=== PATIENT | female | born 1985 | race Caucasian/White ===

== ENCOUNTER 2017-06-12 18:07 | Emergency (ER) | payer OTHER ==
[~2017-06-12] VITALS: Ht 165.1 cm; Wt 96.7 kg
[~2017-06-12 18:07] MED LIST: ALBUAER2 INH; FLV1 PO; FRRS300 PO; GABA1CAP5 PO; IPRASOL4 INH; LAVEOIL; METH10CO PO; METO5TAB3 PO; MIRT30TA2 PO; MISCLIQ; MOME100A INH; MRLP17 PO; NCDT21 TD; ONDA8TAB62 SL; PEPPOIL; PRT40 PO; SALI0.6517; SUMA50TA15 PO; ZOLP10TA PO; [UNRECOGNIZED DRUG - OTHER]; [UNRECOGNIZED DRUG - OTHER]
[2017-06-12 18:21] VITALS: TEMP 36.8; Ht 165.1 cm; Wt 96.7 kg
--- NOTE | 2017-06-12 18:58 | EMERGENCY ROOM VISIT NOTE ---
History First contact with patient: 18:23 Chief Complaint: WRIST PAIN Stated Complaint: FELL - PAIN IN R WRIST History of Present Illness The patient is a 32 year old female who presents to the Emergency Room with complaints of right arm pain after a fall. The patient reports that she tripped and fell down steps approximately one hour ago. She injured her right arm. She denies any other injuries. She did not hit her head. She states there is pain in the right elbow and wrist. Denies any shoulder or hand pain. She denies any numbness or weakness. He took ibuprofen without relief. She denies any previous injuries to this arm. Review of Systems A 6 point review of systems was reviewed with the patient with pertinent positives and negatives as per history of present illness. All else were negative. Past Medical/Surgical History Medical Problems: (1) Altered mental status (2) Benzodiazepine overdose (3) Bipolar disorder (4) Bronchitis (5) Chronic alcoholism in remission (6) Chronic back pain (7) Chronic hepatitis C (8) Depression (9) Diab Kelsey Wo Compl, Type Ii Or Unspec Type, Not Uncntrld (10) Drug overdose (11) History of IV drug abuse (12) Hypertension Nos (13) Pneumonia Surgical Problems: (1) History of section (2) History of hernia repair (3) History of tubal ligation Social History Problems: (1) Hepatitis C Family History FHx: cancer FHx: diabetes FHx: gallbladder disease FHx: heart disease FHx: hypertension FHx: kidney disease/stones FHx: lung disease FHx: seizures Social History Smoking Status: Current Every Day Smoker Alcohol Use: none Marital Status: single Housing Status: lives alone Occupation Status: employed Current/Historical Medications Scheduled Ferrous Sulfate (Ferrous Sulfate), 325 MG PO BID Folic Acid (Folvite), 1 MG PO DAILY Gabapentin (Neurontin), 600 MG PO TID Methadone Hcl (Methadone Hcl), 120 MG PO DAILY Milk Thistle (Silybum Marian[place] (Milk Thistle), 175 MG PO DAILY Mirtazapine (Mirtazapine), 45 MG PO HS Mometasone Furoate-Formoterol (Dulera 100/5 Mcg), 2 PUFFS INH BID Pantoprazole (Protonix), 40 MG PO BID Scheduled PRN Acetaminophen (Tylenol), 1,000 MG PO Q8 PRN for Pain Albuterol (Ventolin Hfa), 2 PUFFS INH Q4H PRN for SOB/Wheezing Ibuprofen (Motrin), 800 MG PO TID PRN for Pain Ipratropium-Albuterol (Duoneb), 1 TREATMENT INH QID PRN for SOB/Wheezing Metoclopramide Hcl (Metoclopramide Hcl), 5 MG PO Q8 PRN for Nausea or Vomiting Ondansetron Odt (Zofran Odt), 8 MG SL BID PRN for Nausea Polyethylene Glycol 3350 (Bulk (Polyethylene Glycol 3350), 17 GM PO BID PRN for Constipation Quetiapine Fumarate (Seroquel), 50 MG PO BID PRN for UNDECIDED Saline ([place] Nasal [place]), 2 SPRAYS REINALDO UD PRN for Nasal Congestion Zolpidem Tartrate (Ambien), 10 MG PO HS PRN for Sleep Physical Exam Vital Signs Date Time Temp Pulse Resp B/P (MAP) Pulse Ox O2 Delivery O2 Flow Rate FiO2 06/12/17 20:30 70 16 115/72 99 06/12/17 20:09 78 18 119/75 97 Room Air 06/12/17 18:21 36.8 80 16 116/75 95 Room Air Physical Exam VITALS: Vitals are noted on the nurse's note and reviewed by myself. Vital signs stable. GENERAL: This is a 32-year-old female, in no acute distress, nondiaphoretic, well-developed well-nourished. MUSCULOSKELETAL: There is swelling over the dorsum of the right wrist. There is tenderness to palpation of the right wrist bilaterally and of the right elbow. No tenderness of the proximal forearm, hand, humerus or shoulder. Full range of motion of the right upper extremity. NEURO: Patient was alert and oriented to person place and time. Medical Decision & Procedures ER Provider Diagnostic Interpretation: RIGHT ELBOW 3 VIEWS FINDINGS: There is no fracture or dislocation. Soft tissues are unremarkable. No radiopaque foreign bodies. No elbow effusion. IMPRESSION: No fracture or dislocation within the right elbow. RIGHT WRIST 4 VIEWS FINDINGS: There is no fracture or dislocation. Mild soft tissue swelling. The scaphoid appears intact. No radiopaque foreign bodies. IMPRESSION: No fractures. Medical Decision Differential diagnosis includes elbow fracture, wrist fracture, contusion, sprain, among others. The patient was evaluated as above. X-rays of the right elbow and right wrist were performed and read by radiology with no acute findings. Patient was placed in an arm sling to help with her discomfort. Conservative measures were discussed. She will follow-up with primary care or orthopedics as needed. She verbalized understanding of my assessment and treatment plan and was discharged home in good condition. Medication Reconcilliation Current Medication List: was personally reviewed by me Blood Pressure Screening Patient's blood pressure: Normal blood pressure Impression Primary Impression: Wrist pain, right Departure Information Referrals Breann Dee (PCP) Patient Instructions [facility]
[2017-06-12] MEDS ORDERED: MILK175C3 PO (19:00)
[2017-06-12] MEDS ORDERED: PRVHFAIN INH (19:00)
[2017-06-12] MEDS ORDERED: METH10CO11 PO (19:00)
[2017-06-12] MEDS ORDERED: ACET-1256 PO (19:00)
[2017-06-12] MEDS ORDERED: FOLI1TAB8 PO (19:00)
[2017-06-12] MEDS ORDERED: SALI0.6510 NAE (19:00)
[2017-06-12] MEDS ORDERED: FERR325T5 PO (19:00)
[2017-06-12] MEDS ORDERED: METO5TAB2 PO (19:00)
[2017-06-12] MEDS ORDERED: IBUP-1428 PO (19:00)
[2017-06-12] MEDS ORDERED: GABA600T PO (19:00)
[2017-06-12] MEDS ORDERED: ONDA8TAB13 SL (19:00)
[2017-06-12] MEDS ORDERED: POLY1POW2 PO (19:00)
[2017-06-12] MEDS ORDERED: QUET1TAB32 PO (19:00)
[2017-06-12] MEDS ORDERED: PANT40TA PO (19:00)
[2017-06-12] MEDS ORDERED: MIRT45TA3 PO (19:00)
--- NOTE | 2017-06-12 19:13 | DIAGNOSTIC IMAGING REPORT ---
RIGHT ELBOW 3 VIEWS HISTORY: Right elbow pain. fall, right arm pain COMPARISON: None. FINDINGS: There is no fracture or dislocation. Soft tissues are unremarkable. No radiopaque foreign bodies. No elbow effusion. IMPRESSION: No fracture or dislocation within the right elbow. Electronically signed by: Duc Ballard M.D. 06/12/2017 7:12 PM Dictated Date/Time: 06/12/2017 7:11 PM
--- NOTE | 2017-06-12 19:16 | DIAGNOSTIC IMAGING REPORT ---
RIGHT WRIST 4 VIEWS HISTORY: Right wrist pain. fall, right arm pain COMPARISON: None. FINDINGS: There is no fracture or dislocation. Mild soft tissue swelling. The scaphoid appears intact. No radiopaque foreign bodies. IMPRESSION: No fractures. Electronically signed by: Duc Ballard M.D. 06/12/2017 7:14 PM Dictated Date/Time: 06/12/2017 7:13 PM
[2017-06-12 20:30] VITALS: BP 115/72; PULSE 70; O2SAT 99
== END 2017-06-12 20:30 | disposition home or self-care (01) ==
LOC: C.EDB 18:08 → C.EDD 20:30
DX: M25.531 Pain in right wrist (principal); I10 Essential (primary) hypertension; E11.9 Type 2 diabetes mellitus without complications; B19.20 Unspecified viral hepatitis C without hepatic coma; F31.9 Bipolar disorder, unspecified; F32.9 Major depressive disorder, single episode, unspecified; F17.200 Nicotine dependence, unspecified, uncomplicated; Z98.51 Tubal ligation status; Z79.899 Other long term (current) drug therapy; Z80.9 Family history of malignant neoplasm, unspecified; Z83.3 Family history of diabetes mellitus; Z83.79 Family history of other diseases of the digestive system; Z82.49 Family history of ischemic heart disease and other diseases of the circulatory system; Z84.1 Family history of disorders of kidney and ureter; Z82.0 Family history of epilepsy and other diseases of the nervous system

== ENCOUNTER 2017-12-31 18:17 | Observation (INO) | payer OTHER ==
[~2017-12-31] VITALS: Ht 165.1 cm; Wt 78.1 kg
[~2017-12-31 18:17] MED LIST changes: +ABL10 PO; -ALBUAER2 INH; +ATR25 PO; +FERR325T5 PO; -FLV1 PO; +FOLI1TAB8 PO; -FRRS300 PO; -GABA1CAP5 PO; +GABA600T PO; +IPRA-64 INH; -IPRASOL4 INH; -LAVEOIL; -METH10CO PO; -METO5TAB3 PO; +MILK175C3 PO; -MIRT30TA2 PO; +MIRT45TA3 PO; -MISCLIQ; -MOME100A INH; -MRLP17 PO; -NCDT21 TD; +ONDA8TAB13 SL; -ONDA8TAB62 SL; +PANT40TA PO; -PEPPOIL; -PRT40 PO; -SALI0.6517; +SRQ200 PO; -SUMA50TA15 PO; -ZOLP10TA PO; -[UNRECOGNIZED DRUG - OTHER]; -[UNRECOGNIZED DRUG - OTHER]
[2017-12-31] MEDS ORDERED: SODIUM CHLORIDE 0.9% 1000ML 1,000 ML IV STA (18:25)
--- NOTE | 2017-12-31 18:41 | EMERGENCY ROOM VISIT NOTE ---
History Report prepared by eBe: Juana Mina Under the Supervision of: Dr. Stanley Wilkerson D.O. First contact with patient: 18:18 Stated Complaint: OVERDOSE, MENTAL HEALTH History of Present Illness The patient is a 32 year old female who presents to the Emergency Room with complaints of an episode of Prazosin overdose about 1.5 hours ago. She notes she took about a handful of Prazosin 1mg pills, about 15-20, before deciding it was a bad decision and making herself throw up, less than 5 minutes later. The patient states she believes she threw up all the pills but came to the ED to be checked out as she felt a little dizzy upon standing up. She notes the medication is her fiance's. The patient reports she wanted to OD because she felt she had done some shameful things. She states her LMP was probably over a month ago but she is unsure if she is due for it again. The patient notes she has had suicidal ideations in the past. The Prazosin bottle was filled 11/28/17, and there are 34 pills left out of 60 ( 26 pills missing). She notes her fiance is supposed to take 2 pills a day, and she believes he generally takes his medicine. The patient states the bottle was "mostly full" when she took it, and she believes she took about 15-20 pills. Source of History: patient Onset: 1.5 hours ago Position: other (global) Quality: other (Prazosin overdose) Timing: other (episode) Note: Associated symptom: dizziness Review of Systems See HPI for pertinent positives & negatives. A total of 10 systems reviewed and were otherwise negative. 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 Surgical Problems: (1) History of section (2) History of hernia repair (3) History of tubal ligation Social History Problems: (1) Hepatitis C Family History FHx: cancer FHx: diabetes FHx: gallbladder disease FHx: heart disease FHx: hypertension FHx: kidney disease/stones FHx: lung disease FHx: seizures Social History Smoking Status: Current Every Day Smoker Alcohol Use: none Drug Use: marijuana Marital Status: single, in relationship Housing Status: lives alone Occupation Status: employed Current/Historical Medications Scheduled Amoxicillin & Pot Clavulanate (Amoxicillin/Clavulanate P), 875 MG PO BIDM Aripiprazole (Abilify), 20 MG PO QAM Folic Acid (Folvite), 1 MG PO DAILY Gabapentin (Gabapentin), 600 MG PO TID Hydroxyzine HCl (Hydroxyzine HCl), 50 MG PO BID17 Pantoprazole (Pantoprazole Sodium), 40 MG PO BID Quetiapine Fumarate (Seroquel), 200 MG PO HS Scheduled PRN Albuterol (Ventolin Hfa), 2 PUFFS INH Q4H PRN for SOB/Wheezing Metoclopramide Hcl (Metoclopramide Hcl), 5 MG PO Q8 PRN for Nausea or Vomiting Polyethylene Glycol 3350 (Bulk (Polyethylene Glycol 3350), 17 GM PO BID PRN for Constipation Allergies Coded Allergies: Carbamazepine (Unverified Allergy, Intermediate, RASH, 12/04/17) Propoxyphene (Unverified Allergy, Mild, 11/27/17) Lamotrigine (Unverified Allergy, Unknown, HIVES, 11/27/17) Tramadol (Verified Adverse Reaction, Severe, hx. of seizure WHEN taking tramadol WITH EFFEXOR, 11/27/17) hx. of seizure taking tramadol and effexor together Venlafaxine (Verified Adverse Reaction, Severe, HX OF SEIZURE WHEN TAKING TRAMADOL WITH EFFEXOR, 11/27/17) hx. of seizure taking tramadol and effexor together Physical Exam Vital Signs Date Time Temp Pulse Resp B/P (MAP) Pulse Ox O2 Delivery O2 Flow Rate FiO2 12/31/17 20:31 80 16 98/62 98 Room Air 12/31/17 19:32 87 20 113/86 98 Room Air 99 117/87 100 105/91 12/31/17 19:05 92 16 124/94 98 Room Air 12/31/17 18:34 98 Room Air 12/31/17 18:34 36.6 102 21 107/82 96 Room Air 12/31/17 18:28 103 Physical Exam GENERAL: Patient is listless and unemotional. Does not appear to be in pain or anxious. EYES: The conjunctivae are clear. The pupils are round and reactive. EARS, NOSE, MOUTH AND THROAT: The nose is without any evidence of any deformity. Mucous membranes are moist. Tongue is midline NECK: The neck is nontender and supple. RESPIRATORY: Normal respiratory effort is noted. There is no evidence of wheezing rhonchi or rales to auscultation. CARDIOVASCULAR: Tachycardic rate and rhythm noted. No definite murmur noted. GASTROINTESTINAL: The abdomen is soft. Bowel sounds are present in all quadrants. Abdomen is nontender. MUSCULOSKELETAL/EXTREMITIES: There is no evidence of gross deformity. Full range of motion is noted in the hips and shoulders. SKIN: There is no obvious evidence of any rash. There are no petechiae, pallor or cyanosis noted. NEUROLOGIC: Patient is awake and oriented x3. PSYCH: Patient was very evasive and guarded, starts to tell story of overdose but then seems to stop short of telling entire story of why she did it. Medical Decision & Procedures ER Provider Diagnostic Interpretation: Radiology results as stated below per my review and radiologist interpretation: SINGLE VIEW CHEST CLINICAL HISTORY: Overdose. FINDINGS: An AP, portable, upright chest radiograph is compared to study dated 11/27/2017. The examination is degraded by portable technique and patient rotation. The cardiomediastinal silhouette is unremarkable. There is volume loss in the right lung with mild rightward shift of the mediastinum. There is patchy airspace consolidation at the right lung base the left lung appears clear. No large pleural effusion is identified. No pneumothorax is seen. The bony thorax is grossly intact. IMPRESSION: There is volume loss in the right lung with patchy airspace consolidation at the right lung base. The appearance is typical for pneumonia/aspiration pneumonitis. Clinical correlation will be required and radiographic follow-up to resolution is recommended. Electronically signed by: Joao Dunbar M.D. 12/31/2017 7:23 PM Dictated Date/Time: 12/31/2017 7:21 PM Laboratory Results 12/31/17 19:01 Red Blood Count 4.52, Mean Corpuscular Volume 84.1, Mean Corpuscular Hemoglobin 28.5, Mean Corpuscular Hemoglobin Concent 33.9, Mean Platelet Volume 9.3, Neutrophils (%) (Auto) 62.7, Lymphocytes (%) (Auto) 28.5, Monocytes (%) (Auto) 7.5, Eosinophils (%) (Auto) 1.1, Basophils (%) (Auto) 0.0, Neutrophils # (Auto) 4.02, Lymphocytes # (Auto) 1.83, Monocytes # (Auto) 0.48, Eosinophils # (Auto) 0.07, Basophils # (Auto) 0.00 Test 12/31/17 00:00 12/31/17 18:40 12/31/17 19:01 Urine Color YELLOW Urine Appearance CLEAR (CLEAR) Urine pH 7.0 (4.5-7.5) Urine Specific [place] 1.018 (1.000-1.030) Urine Protein NEG (NEG) Urine Glucose (UA) NEG (NEG) Urine Ketones TRACE (NEG) Urine Occult Blood TRACE (NEG) Urine Nitrite NEG (NEG) Urine Bilirubin NEG (NEG) Urine Urobilinogen NEG (NEG) Urine Leukocyte Esterase NEG (NEG) Urine WBC (Auto) 1-5 /hpf (0-5) Urine RBC (Auto) 5-10 /hpf (0-4) Urine Hyaline Casts (Auto) 1-5 /lpf (0-5) Urine Epithelial Cells (Auto) >30 /lpf (0-5) Urine Bacteria (Auto) 1+ (NEG) Urine Opiates Screen NEG (NEG) Urine Methadone, Qualitative NEG (NEG) Urine Barbiturates NEG (NEG) Urine Phencyclidine (PCP) Level NEG (NEG) Ur Amphetamine/Methamphetamine NEG (NEG) MDMA (Ecstasy) Screen NEG (NEG) Urine Benzodiazepines Screen NEG (NEG) Urine Cocaine Metabolite NEG (NEG) Urine Marijuana (THC) POS (NEG) White Blood Count 6.41 K/uL (4.8-10.8) Red Blood Count 4.52 M/uL (4.2-5.4) Hemoglobin 12.9 g/dL (12.0-16.0) Hematocrit 38.0 % (37-47) Mean Corpuscular Volume 84.1 fL (80-100) Mean Corpuscular Hemoglobin 28.5 pg (25-34) Mean Corpuscular Hemoglobin Concent 33.9 g/dl (32-36) Platelet Count 188 K/uL (130-400) Mean Platelet Volume 9.3 fL (7.4-10.4) Neutrophils (%) (Auto) 62.7 % Lymphocytes (%) (Auto) 28.5 % Monocytes (%) (Auto) 7.5 % Eosinophils (%) (Auto) 1.1 % Basophils (%) (Auto) 0.0 % Neutrophils # (Auto) 4.02 K/uL (1.4-6.5) Lymphocytes # (Auto) 1.83 K/uL (1.2-3.4) Monocytes # (Auto) 0.48 K/uL (0.11-0.59) Eosinophils # (Auto) 0.07 K/uL (0-0.5) Basophils # (Auto) 0.00 K/uL (0-0.2) RDW Standard Deviation 41.7 fL (36.4-46.3) RDW Coefficient of Variation 13.7 % (11.5-14.5) Immature Granulocyte % (Auto) 0.2 % Immature Granulocyte # (Auto) 0.01 K/uL (0.00-0.02) Prothrombin Time 10.6 SECONDS (9.0-12.0) Prothromb Time International Ratio 1.0 (0.9-1.1) Activated Partial Thromboplast Time 28.5 SECONDS (21.0-31.0) Partial Thromboplastin Ratio 1.1 Total Bilirubin 0.3 mg/dl (0.2-1) Direct Bilirubin 0.1 mg/dl (0-0.2) Aspartate Amino Transf (AST/SGOT) 20 U/L (15-37) Alanine Aminotransferase (ALT/SGPT) 34 U/L (12-78) Alkaline Phosphatase 86 U/L (45-117) Total Creatine Kinase 18 U/L (26-192) Troponin I < 0.015 ng/ml (0-0.045) Total Protein 7.2 gm/dl (6.4-8.2) Albumin 3.4 gm/dl (3.4-5.0) Lipase 113 U/L (73-393) Human Chorionic Gonadotropin, Qual NEG (NEG) Salicylates Level 2.4 mg/dl (2.8-20) Acetaminophen Level < 2 ug/ml (10-30) Ethyl Alcohol mg/dL < 3.0 mg/dl (0-3) Laboratory results per my review. Medications Administered Medications (Trade) Dose Ordered Sig/Levy Route Start Time Stop Time Status Last Admin Dose Admin Sodium Chloride 1,000 ml @ 999 mls/hr Q1H1M STAT IV 12/31/17 18:25 12/31/17 19:25 DC 12/31/17 19:08 999 MLS/HR Acetaminophen (Tylenol Tab) 650 mg Q4H PRN PO 12/31/17 21:15 01/30/18 21:14 01/01/18 09:45 650 MG Polyethylene (Miralax Powder Packet) 17 gm DAILY PRN PO 12/31/17 21:15 01/30/18 21:14 01/01/18 17:40 17 GM Potassium Chloride (Klor-Con M10) 20 meq NOW STAT PO 12/31/17 21:38 12/31/17 21:45 DC 12/31/17 21:47 20 MEQ Magnesium Sulfate 100 ml @ 100 mls/hr NOW STAT IV 12/31/17 21:38 12/31/17 22:37 DC 12/31/17 21:46 100 MLS/HR ECG Per My Interpretation Indication: tachycardia Rate (beats per minute): 103 Rhythm: sinus tachycardia Findings: no acute ischemic change, no ectopy Comparison ECG Date: 06/17/13 Change: no significant change ED Course 1821: The patient was evaluated in room B3. A complete history and physical examination were performed. 1824: Ordered NSS 1,000 ml @ 999 mls/hr IV 1829: I discussed the case with [facility]. They recommend medical observation followed by mental health evaluation due to patient's hypotension. 1842: I discussed the case with mental health rn case management. 2131: I discussed the patient's case with Dr. Casanova, [facility] hospitalist. The patient will be evaluated for further management. Medical Decision Etiologies such as toxicologic, infection, hypoglycemia, electrolyte abnormalities, cardiac sources, intracerebral event, neurologic, as well as others were entertained. Nursing notes reviewed. Additional history was obtained from the prehospital personnel. The patient is a 32-year-old female who presented to the emergency department for an evaluation of mental health problems. The patient took an overdose of her significant other's blood pressure medication. The patient became very guarded and did not wish to tell me anymore about why she took the overdose. I was very concerned because of the type of medication she took as well as her presenting vital signs. The patient was treated with IV fluids and was observed in the emergency department. She continued to improve while in the emergency department. [facility] Control Center did recommend medical observation for the patient. For this reason I discussed the case with the on-call [facility] hospitalist group. I discussed patient's laboratory and radiographic studies with her. I also discussed her case with the emergency department mental health rn case management. They were able to talk to the patient and got much more the history and were able to establish that the patient did have significant homicidal and suicidal ideation. Medication Reconcilliation Current Medication List: was personally reviewed by me Blood Pressure Screening Patient's blood pressure: Normal blood pressure Blood pressure disposition: Did not require urgent referral Consults Time Called: 1829 Consulting Physician: [facility] Returned Call: [phone]: I discussed the case with [facility] [place]. They recommend medical observation followed by mental health evaluation due to patient's hypotension. Additional Consults: Time Called: 2126 Consulted Physician: Dr. Casanova [facility] hospitalist Returned Call: [phone] Additional Comments: 2131: I discussed the patient's case with Dr. Casanova [facility] hospitalist. The patient will be evaluated for further management. Impression Primary Impression: Overdose Additional Impressions: Depression Suicide gesture Orthostatic hypotension Scribe Attestation The scribe's documentation has been prepared under my direction and personally reviewed by me in its entirety. I confirm that the note above accurately reflects all work, treatment, procedures, and medical decision making performed by me. Departure Information Dispostion Being Evaluated By Hospitalist Prescriptions Amoxicillin & Pot Clavulanate (AMOXICILLIN/CLAVULANATE P) 1 Tab Tab 875 MG PO BIDM for 5 Days, #10 TAB Prov: Jacqueline Bland MD 01/01/18 Referrals Breann Dee (PCP) Problem Qualifiers Primary Impression: Overdose Encounter type: initial encounter Injury intent: intentional self-harm Qualified Codes: T50.902A - Poisoning by unspecified drugs, medicaments and biological substances, intentional self-harm, initial encounter Additional Impressions: Depression Depression Type: unspecified Qualified Codes: F32.9 - Major depressive disorder, single episode, unspecified Suicide gesture Encounter type: initial encounter Qualified Codes: X83.8XXA - Intentional self-harm by other specified means, initial encounter
[2017-12-31] MEDS ORDERED: POLY1POW2 PO (19:00)
[2017-12-31] MEDS ORDERED: METO5TAB2 PO (19:00)
[2017-12-31] MEDS ORDERED: PRVHFAIN INH (19:00)
[2017-12-31 19:12] LABS: EOS % 1.1 %; EOS ABS # 0.07 K/uL (0-0.5); HEMOGLOBIN 12.9 g/dL (12.0-16.0); IG# 0.01 K/uL (0.00-0.02); LYMPH % 28.5 %; LYMPH ABS # 1.83 K/uL (1.2-3.4); MEAN CELL VOLUME 84.1 fL (80-100); MEAN CORPUSCULAR HEMOGLOBIN 28.5 pg (25-34); MEAN CORPUSCULAR HGB CONC 33.9 g/dl (32-36); MEAN PLATELET VOLUME 9.3 fL (7.4-10.4); MONO % 7.5 %; MONO ABS # 0.48 K/uL (0.11-0.59); NEUT % 62.7 %; NEUT ABS # 4.02 K/uL (1.4-6.5); PLATELET COUNT 188 K/uL (130-400); RED CELL DISTRIBUTION WIDTH CV 13.7 % (11.5-14.5); RED CELL DISTRIBUTION WIDTH SD 41.7 fL (36.4-46.3); WHITE BLOOD COUNT 6.41 K/uL (4.8-10.8)
[2017-12-31 19:23] LABS: PTT PATIENT 28.5 SECONDS (21.0-31.0)
--- NOTE | 2017-12-31 19:24 | DIAGNOSTIC IMAGING REPORT ---
SINGLE VIEW CHEST CLINICAL HISTORY: Overdose. FINDINGS: An AP, portable, upright chest radiograph is compared to study dated 11/27/2017. The examination is degraded by portable technique and patient rotation. The cardiomediastinal silhouette is unremarkable. There is volume loss in the right lung with mild rightward shift of the mediastinum. There is patchy airspace consolidation at the right lung base the left lung appears clear. No large pleural effusion is identified. No pneumothorax is seen. The bony thorax is grossly intact. IMPRESSION: There is volume loss in the right lung with patchy airspace consolidation at the right lung base. The appearance is typical for pneumonia/aspiration pneumonitis. Clinical correlation will be required and radiographic follow-up to resolution is recommended. Electronically signed by: Joao Dunbar M.D. 12/31/2017 7:23 PM Dictated Date/Time: 12/31/2017 7:21 PM
[2017-12-31 19:31] LABS: ALBUMIN 3.4 gm/dl (3.4-5.0); ALKALINE PHOSPHATASE 86 U/L (45-117); ALT/SGPT 34 U/L (12-78); AST/SGOT 20 U/L (15-37); BLOOD UREA NITROGEN 7 mg/dl (7-18); CALCIUM 8.8 mg/dl (8.5-10.1); CARBON DIOXIDE 27 mmol/L (21-32); CREATININE 0.91 mg/dl (0.60-1.20); GLUCOSE 164 mg/dl (70-99); LIPASE 113 U/L (73-393); POTASSIUM 3.2 mmol/L (3.5-5.1); SODIUM 139 mmol/L (136-145); TOTAL PROTEIN 7.2 gm/dl (6.4-8.2)
[2017-12-31] MEDS ORDERED: NRN600 PO (20:30)
[2017-12-31] MEDS ORDERED: PRAZ1CAP28 PO (20:30)
[2017-12-31] MEDS ORDERED: PANT40TA2 PO (20:30)
[2017-12-31] MEDS ORDERED: ONDANSETRON INJ 2 MG/ML 2 ML VIAL IV PRN (21:15)
[2017-12-31] MEDS ORDERED: ACETAMINOPHEN 325 MG TAB PO PRN (21:15)
[2017-12-31] MEDS ORDERED: ZOLPIDEM TARTRATE 5 MG TAB PO PRN (21:15)
[2017-12-31] MEDS ORDERED: MAGNESIUM HYDROXIDE SUSP 30 ML UDC PO PRN (21:15)
[2017-12-31] MEDS ORDERED: ALUMINUM/MAGNESIUM/SIMETH (MAALOX MAX) 30 ML UDC PO PRN (21:15)
[2017-12-31] MEDS ORDERED: POLYETHYLENE (MIRALAX) 17 GM PACK PO PRN (21:15)
[2017-12-31] MEDS ORDERED: MAGNESIUM SULFATE 1GM / D5W 100 ML IV STA (21:38)
[2017-12-31] MEDS ORDERED: POTASSIUM CHLORIDE 10 MEQ TABCR PO STA (21:38)
[2017-12-31] MEDS ORDERED: MAGNESIUM SULFATE 1GM / D5W 1 GM BAG IV ONE (21:43)
[2017-12-31] MEDS ORDERED: POTASSIUM CHLORIDE 10 MEQ TABCR ONE (21:44)
[2017-12-31] MEDS ORDERED: METOCLOPRAMIDE HCL 5 MG TAB PO PRN (21:45)
[2017-12-31] MEDS ORDERED: ALBUTEROL HFA 8 GM INHALER INH PRN (21:45)
--- NOTE | 2017-12-31 22:19 | History and Physical ---
History & Physical Date & Time of Service: Dec 31, 2017 at 21:45 Chief Complaint: Overdose, Mental Health Primary Care Physician: Breann Dee History of Present Illness Source: patient, hospital records, other 32 y/o F Hx bipolar disease with psychosis, polysubstance abuse, hep C, presents to the ER after an intentional overdose with Prazosin. She states that she took 20-30 pills but then regretted her decision after a few minutes. She induced vomiting and phoned EMS. She believes she was able to vomit the majority of the pills. She was assessed in the ER where she was provided with IVF and designated to the psychiatric ram[facility]. She become hypotensive, however, and was markedly orthostatic as well. Per poison control, this is likely a side effect of Prazosin. The pt will therefore be assigned to telemetry for overnight monitoring. She otherwise complains of a cough and mild respiratory symptoms for a few weeks. She has not had fevers. She was last admitted to [facility] 11/417 with acute psychosis. Past Medical/Surgical History 1) Bipolar with psychosis 2) IV heroin use 3) Polysubstance abuse including but not limited to Heroin, cocaine, alcohol, THC, Nicotine 4) Hepatitis C Family History FHx: cancer FHx: diabetes FHx: gallbladder disease FHx: heart disease FHx: hypertension FHx: kidney disease/stones FHx: lung disease FHx: seizures Pt's mother is suffering from an unspecified cancer Her father is . She has not been in touch with him for several years and does not know the cause of . Social History Smokes 1-2 packs/day. She smokes marijuana regularly. She drinks ETOH, sometimes in excess. She has previously used IV heroin and suffered from opioid -dependence and withdrawal. She states she uses cocaine when it is available to her. Smoking Status: Current Every Day Smoker Drug Use: marijuana Marital Status: single, in relationship Housing status: lives with family Occupational Status: employed Immunizations History of Influenza Vaccine: No History of Tetanus Vaccine?: Yes Tetanus Immunization Date: Mar 26, 2009 History of Pneumococcal: No History of Hepatitis B Vaccine: No Allergies Coded Allergies: Carbamazepine (Unverified Allergy, Intermediate, RASH, 12/04/17) Propoxyphene (Unverified Allergy, Mild, 11/27/17) Lamotrigine (Unverified Allergy, Unknown, HIVES, 11/27/17) Tramadol (Verified Adverse Reaction, Severe, hx. of seizure WHEN taking tramadol WITH EFFEXOR, 11/27/17) hx. of seizure taking tramadol and effexor together Venlafaxine (Verified Adverse Reaction, Severe, HX OF SEIZURE WHEN TAKING TRAMADOL WITH EFFEXOR, 11/27/17) hx. of seizure taking tramadol and effexor together Home Medications Scheduled Aripiprazole (Abilify), 20 MG PO QAM Folic Acid (Folvite), 1 MG PO DAILY Gabapentin (Gabapentin), 600 MG PO TID Hydroxyzine HCl (Hydroxyzine HCl), 50 MG PO BID17 Pantoprazole (Pantoprazole Sodium), 40 MG PO BID Prazosin Hcl (Prazosin), PO TODAY Quetiapine Fumarate (Seroquel), 200 MG PO HS Scheduled PRN Albuterol (Ventolin Hfa), 2 PUFFS INH Q4H PRN for SOB/Wheezing Metoclopramide Hcl (Metoclopramide Hcl), 5 MG PO Q8 PRN for Nausea or Vomiting Polyethylene Glycol 3350 (Bulk (Polyethylene Glycol 3350), 17 GM PO BID PRN for Constipation Review of Systems Constitutional: No fever, No chills, No sweats Eyes: No worsening of vision ENT: No hearing loss, No unusual epistaxis, No nasal symptoms Respiratory: + cough, No sputum Cardiovascular: No chest pain, No orthopnea, No PND Abdomen: No pain, No nausea, No vomiting Musculoskeletal: No joint pain Genitourinary - Female: No dysuria, No urinary frequency, No urinary urgency Neurologic: No memory loss, No paralysis, No weakness Psychiatric: No depression symptoms Endocrine: No fatigue Hematologic / Lymphatic: No abnormal bleeding/bruising Integumentary: No rash Allergic / Immunologic: No environmental allergies Physical Exam Vital Signs Date Time Temp Pulse Resp B/P (MAP) Pulse Ox O2 Delivery O2 Flow Rate FiO2 12/31/17 20:31 80 16 98/62 98 Room Air 12/31/17 19:32 87 20 113/86 98 Room Air 99 117/87 100 105/91 12/31/17 19:05 92 16 124/94 98 Room Air 12/31/17 18:34 98 Room Air 12/31/17 18:34 36.6 102 21 107/82 96 Room Air 8/2/18 18:28 103 General Appearance: WD/WN, no apparent distress Head: normocephalic Eyes: normal inspection ENT: pharynx normal Neck: supple, no JVD Respiratory/Chest: chest non-tender, lungs clear, normal breath sounds Cardiovascular: regular rate, rhythm, no edema, no gallop, no JVD Abdomen/GI: normal bowel sounds, non tender, soft Back: normal inspection, no CVA tenderness Neurologic/Psych: manager business II-XII nml as tested, no motor/sensory deficits, alert, oriented x 3 Skin: normal color Diagnostics Laboratory Results Results Past 24 Hours Test 12/31/17 00:00 12/31/17 18:40 12/31/17 19:01 Range/Units Urine Color YELLOW Urine Appearance CLEAR CLEAR Urine pH 7.0 4.5-7.5 Urine Specific [place] 1.018 1.000-1.030 Urine Protein NEG NEG Urine Glucose (UA) NEG NEG Urine Ketones TRACE NEG Urine Occult Blood TRACE NEG Urine Nitrite NEG NEG Urine Bilirubin NEG NEG Urine Urobilinogen NEG NEG Urine Leukocyte Esterase NEG NEG Urine WBC (Auto) 1-5 0-5 /hpf Urine RBC (Auto) 5-10 0-4 /hpf Urine Hyaline Casts (Auto) 1-5 0-5 /lpf Urine Epithelial Cells (Auto) >30 0-5 /lpf Urine Bacteria (Auto) 1+ NEG Urine Opiates Screen NEG NEG Urine Methadone, Qualitative NEG NEG Urine Barbiturates NEG NEG Urine Phencyclidine (PCP) Level NEG NEG Ur Amphetamine/Methamphetamine NEG NEG MDMA (Ecstasy) Screen NEG NEG Urine Benzodiazepines Screen NEG NEG Urine Cocaine Metabolite NEG NEG Urine Marijuana (THC) POS NEG White Blood Count 6.41 4.8-10.8 K/uL Red Blood Count 4.52 4.2-5.4 M/uL Hemoglobin 12.9 12.0-16.0 g/dL Hematocrit 38.0 37-47 % Mean Corpuscular Volume 84.1 80-100 fL Mean Corpuscular Hemoglobin 28.5 25-34 pg Mean Corpuscular Hemoglobin Concent 33.9 32-36 g/dl Platelet Count 188 130-400 K/uL Mean Platelet Volume 9.3 7.4-10.4 fL Neutrophils (%) (Auto) 62.7 % Lymphocytes (%) (Auto) 28.5 % Monocytes (%) (Auto) 7.5 % Eosinophils (%) (Auto) 1.1 % Basophils (%) (Auto) 0.0 % Neutrophils # (Auto) 4.02 1.4-6.5 K/uL Lymphocytes # (Auto) 1.83 1.2-3.4 K/uL Monocytes # (Auto) 0.48 0.11-0.59 K/uL Eosinophils # (Auto) 0.07 0-0.5 K/uL Basophils # (Auto) 0.00 0-0.2 K/uL RDW Standard Deviation 41.7 36.4-46.3 fL RDW Coefficient of Variation 13.7 11.5-14.5 % Immature Granulocyte % (Auto) 0.2 % Immature Granulocyte # (Auto) 0.01 0.00-0.02 K/uL Prothrombin Time 10.6 9.0-12.0 SECONDS Prothromb Time International Ratio 1.0 0.9-1.1 Activated Partial Thromboplast Time 28.5 21.0-31.0 SECONDS Partial Thromboplastin Ratio 1.1 Sodium Level 139 136-145 mmol/L Potassium Level 3.2 3.5-5.1 mmol/L Chloride Level 106 98-107 mmol/L Carbon Dioxide Level 27 21-32 mmol/L Anion Gap 6.0 3-11 mmol/L Blood Urea Nitrogen 7 7-18 mg/dl Creatinine 0.91 0.60-1.20 mg/dl Est Creatinine Clear Calc Drug Dose 90.6 ml/min Estimated GFR () 96.1 Estimated GFR (Non- 82.9 BUN/Creatinine Ratio 7.7 10-20 Random Glucose 164 70-99 mg/dl Calcium Level 8.8 8.5-10.1 mg/dl Total Bilirubin 0.3 0.2-1 mg/dl Direct Bilirubin 0.1 0-0.2 mg/dl Aspartate Amino Transf (AST/SGOT) 20 15-37 U/L Alanine Aminotransferase (ALT/SGPT) 34 12-78 U/L Alkaline Phosphatase 86 45-117 U/L Total Creatine Kinase 18 26-192 U/L Troponin I < 0.015 0-0.045 ng/ml Total Protein 7.2 6.4-8.2 gm/dl Albumin 3.4 3.4-5.0 gm/dl Lipase 113 73-393 U/L Human Chorionic Gonadotropin, Qual NEG NEG Salicylates Level 2.4 2.8-20 mg/dl Acetaminophen Level < 2 10-30 ug/ml Ethyl Alcohol mg/dL < 3.0 0-3 mg/dl Impression Assessment and Plan 32 y/o F Hx bipolar disease with psychosis, polysubstance abuse, hep C, presents to the ER after an intentional overdose with Prazosin. She states that she took 20-30 pills but then regretted her decision after a few minutes. She induced vomiting and phoned EMS. She believes she was able to vomit the majority of the pills. She was assessed in the ER where she was provided with IVF and designated to the psychiatric ram[facility]. She become hypotensive, however, and was markedly orthostatic as well. Per poison control, this is likely a side effect of Prazosin. The pt will therefore be assigned to telemetry for overnight monitoring. She otherwise complains of a cough and mild respiratory symptoms for a few weeks. She has not had fevers. She was last admitted to [facility] 11/417 with acute psychosis. 1) Overdose with Prazosin - will provide IVF and monitor overnight - no other immediate recommendations per poison control. 2) Intentional OD - bipolar disease - - depression, psychosis - she has been evaluated by mental health. She will be transferred to their service when medically cleared. We will continue her current meds as prescribed. 3) Polysubstance abuse - cigarette smoker - we have provided a Nicotine patch. We can provide a sedative as needed. 4) Reg her respiratory symptoms - this is likely self limiting and holding cigarettes for a few days may be helpful Full code - SCDs Total time for this admit including review of labs, meds, imaging, records - discussion with pt and ER attending - 35 min Resuscitation Status VTE Prophylaxis Will order VTE Prophylaxis: Yes Reason no Mechanical VTE Order: Treatment not indicated
[2017-12-31 22:56] VITALS: BP 103/72; PULSE 95; TEMP 36.6; O2SAT 99; Ht 165.1 cm; Wt 78.1 kg
[2017-12-31] MEDS ORDERED: IV FLUIDS COMPLETED PRN (23:15)
[2018-01-01] MEDS: NSS + 20MEQ KCL 1000ML 1,000 ML IV SCH ×2 (00:38→07:51)
[2018-01-01 04:07] VITALS: BP 116/73; PULSE 90; TEMP 36.8; O2SAT 95
[2018-01-01 06:44] LABS: CALCIUM 8.4 mg/dl (8.5-10.1); CREATININE 0.72 mg/dl (0.60-1.20)
[2018-01-01 08:08] VITALS: BP 138/87; PULSE 90; TEMP 36.9; O2SAT 98
[2018-01-01] MEDS: hydrOXYzine HCL 25 MG TAB PO SCH ×2 (08:12→17:40)
[2018-01-01] MEDS: GABAPENTIN 600 MG TAB PO SCH ×2 (08:13→14:26)
[2018-01-01] MEDS ORDERED: ARIPIprazole TAB 10 MG TAB PO SCH (09:00)
[2018-01-01] MEDS ORDERED: PANTOprazole SOD 40 MG TAB PO SCH (09:00)
[2018-01-01 10:49] VITALS: O2SAT 98
--- NOTE | 2018-01-01 10:51 | DIAGNOSTIC IMAGING REPORT ---
CHEST ONE VIEW PORTABLE HISTORY: f/u right sided infiltrate COMPARISON: Chest 12/31/2017. FINDINGS: No pleural effusions. No pneumothorax. The heart is normal in size. Patchy airspace opacity within the right lung base has slightly improved. The left lung remains clear. IMPRESSION: Slight improvement in the patchy airspace opacity within the right lung base. This likely represents a pneumonia. Follow-up chest x-ray in one to 2 months is recommended to ensure complete resolution. Electronically signed by: Duc Ballard M.D. 01/01/2018 10:49 AM Dictated Date/Time: 01/01/2018 10:46 AM
[2018-01-01 11:50] VITALS: BP_SYST 126; BP_SYST 129; BP_SYST 136; BP_DIAS 85; BP_DIAS 88; BP_DIAS 92; PULSE 76; TEMP 37; O2SAT 98
[2018-01-01] MEDS ORDERED: AMOXICILLIN/CLAVULANATE TAB 875 MG TAB PO ONE (12:22)
[2018-01-01] MEDS ORDERED: AMOX1TAB43 PO (14:05)
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
--- NOTE | 2018-01-01 14:19 | Discharge Instructions ---
Discharge Instructions Date of Service Jan 01, 2018. Admission Reason for Admission: Drug Overdose, Orthostatic Hypotension Discharge Discharge Diagnosis / Problem: Prazosin ingestion/overdose, aspiration pneumonitis, acute psychosis Discharge Goals Goal(s): Improve disease control, Diagnostic testing, Therapeutic intervention Activity Recommendations Activity Limitations: resume your previous activity Shower/Bathe: no limitations . Instructions / Follow-Up Instructions / Follow-Up You were admitted after an overdose of prazosin. You had low blood pressures which improved with IV fluids. You were also found to have a right lower lobe pneumonia on chest x-ray and were started on treatment with Augmentin 875 mg's p.o. twice daily. Recommend finishing out a 5 day course of this. You need a repeat chest x-ray in 3-4 weeks to ensure resolution of this infiltrate on her chest x-ray. Recommend drug rehab after acute psychiatric inpatient stay. Current Hospital Diet Patient's current hospital diet: Regular Diet Discharge Diet Recommended Diet: Regular Diet Procedures Procedures Performed: Chest x-ray 2 Pending Studies Studies pending at discharge: no Laboratory Results Lipid Panel Test 12/04/17 07:53 Range/Units Triglycerides Level 89 0-150 mg/dl Cholesterol Level 157 0-200 mg/dl HDL Cholesterol 37 mg/dl Cholesterol/HDL Ratio 4.2 LDL Cholesterol, Calculated 102 mg/dl Medical Emergencies . Who to Call and When: Medical Emergencies: If at any time you feel your situation is an emergency, please call 911 immediately. . Non-Emergent Contact Non-Emergency issues call your: Primary Care Provider Call Non-Emergent contact if: temperature is above 101, you have any medication questions . . "Provider Documentation" section prepared by Jacqueline Bland. .
--- NOTE | 2018-01-01 14:30 | Psychiatric Consultation ---
Psychiatric Consultation Date of Service: Jan 01, 2018. Pt's case reviewed and discussed with psychiatric nurse liaison and Dr. Gardner. Pt was seen this afternoon and given recent substance overdose, level of disorganization, and increased paranoia, would recommend inpatient mental health treatment to treat and monitor symptoms. Pt is likely to further decompensation and remains at risk of harm to herself, and potentially others, if discharged home without restart of psychiatric medications. Pt reports willingness for transfer to the mental health unit to address her concerns. Remainder of HPI, assessment, and plan can be found in patient's mental health H &P.
[2018-01-01 14:42] VITALS: BP 129/92; PULSE 76; TEMP 37; O2SAT 98
[2018-01-01 16:00] VITALS: O2SAT 98
[2018-01-01] MEDS ORDERED: AMOXICILLIN/CLAVULANATE TAB 875 MG TAB PO SCH (17:00)
[2018-01-01] MEDS ORDERED: NURSING VERBAL MED ORDER ONE ×2 (19:15→19:30)
[2018-01-01] MEDS ORDERED: hydrOXYzine HCL 25 MG TAB PO PRN ×2 (19:45)
[2018-01-01] MEDS ORDERED: ACETAMINOPHEN 325 MG TAB PO PRN (19:45)
[2018-01-01] MEDS ORDERED: MAGNESIUM HYDROXIDE SUSP 30 ML UDC PO PRN (19:45)
[2018-01-01] MEDS ORDERED: BISMUTH SUBSALICYLATE PER ML OMNICELL CHARGE PO PRN (19:45)
[2018-01-01] MEDS ORDERED: SODIUM CHLORIDE 0.65% NA SOLN 45 ML (OCEAN) PRN (19:45)
[2018-01-01] MEDS ORDERED: ALUMINUM/MAGNESIUM SUSP 30 ML UDC PO PRN (19:45)
[2018-01-01] MEDS ORDERED: QUETIAPINE FUMARATE 200 MG TAB PO SCH (21:00)
[2018-01-01] MEDS ORDERED: MIRT30TA2 PO (22:31)
[2018-01-01] MEDS ORDERED: FERR1TAB13 PO (22:31)
[2018-01-01] MEDS ORDERED: ATRINS NEB (22:31)
[2018-01-01] MEDS ORDERED: ONDA-170 SL (22:31)
[2018-01-01] MEDS ORDERED: MILK175C3 PO (22:31)
[2018-01-02] MEDS ORDERED: QUET1TAB34 PO (07:34)
[2018-01-02] MEDS ORDERED: HYDR50CA2 PO (07:35)
[2018-01-02] MEDS ORDERED: ARIP20TA4 PO (07:38)
[2018-01-02] MEDS ORDERED: FOLI1TAB8 PO (07:39)
== END 2018-01-01 19:42 ==
LOC: C.EDB 18:17 → EDBD 18:17 → C.MED 21:38 → ENRESERV 22:06
PROVIDERS: ADMIT Internal Medicine; ATTEND Family Medicine
DX: T44.6X2A Poisoning by alpha-adrenoreceptor antagonists, intentional self-harm, initial encounter (principal); X83.8XXA Intentional self-harm by other specified means, initial encounter; J69.0 Pneumonitis due to inhalation of food and vomit; F23 Brief psychotic disorder; E87.6 Hypokalemia; I95.1 Orthostatic hypotension; F31.9 Bipolar disorder, unspecified; F11.10 Opioid abuse, uncomplicated; F14.10 Cocaine abuse, uncomplicated; F10.10 Alcohol abuse, uncomplicated; F12.10 Cannabis abuse, uncomplicated; B18.2 Chronic viral hepatitis C; E11.9 Type 2 diabetes mellitus without complications; Z87.01 Personal history of pneumonia (recurrent)

== ENCOUNTER 2018-01-01 19:42 | Inpatient (IN) | payer OTHER ==
[~2018-01-01] VITALS: Ht 167.6 cm; Wt 76.7 kg
[~2018-01-01 19:42] MED LIST changes: +AMOX1TAB43 PO; -FERR325T5 PO; -GABA600T PO; -IPRA-64 INH; +METO5TAB2 PO; -MILK175C3 PO; -MIRT45TA3 PO; +NRN600 PO; -ONDA8TAB13 SL; -PANT40TA PO; +PANT40TA2 PO; +POLY1POW2 PO; +PRAZ1CAP28 PO; +PRVHFAIN INH
[2018-01-01 19:53] VITALS: BP 122/81; PULSE 99; TEMP 37.1; BMI 27.7
[2018-01-01] MEDS ORDERED: MAGNESIUM HYDROXIDE SUSP 30 ML UDC PO PRN (21:15)
[2018-01-01] MEDS ORDERED: SODIUM CHLORIDE 0.65% NA SOLN 45 ML (OCEAN) PRN (21:15)
[2018-01-01] MEDS ORDERED: ALUMINUM/MAGNESIUM SUSP 30 ML UDC PO PRN (21:15)
[2018-01-01] MEDS ORDERED: BISMUTH SUBSALICYLATE PER ML OMNICELL CHARGE PO PRN (21:15)
[2018-01-01] MEDS ORDERED: ALBUTEROL HFA 8 GM INHALER INH PRN (21:30)
[2018-01-01] MEDS: hydrOXYzine HCL 25 MG TAB PO PRN (22:17)
[2018-01-01] MEDS: PANTOprazole SOD 40 MG TAB PO SCH (22:17)
[2018-01-01] MEDS: GABAPENTIN 600 MG TAB PO SCH (22:17)
[2018-01-01] MEDS ORDERED: NURSING VERBAL MED ORDER ONE (22:30)
[2018-01-01] MEDS ORDERED: ATRINS NEB (22:31)
[2018-01-01] MEDS ORDERED: MILK175C3 PO (22:31)
[2018-01-01] MEDS ORDERED: ONDA-170 SL (22:31)
[2018-01-01] MEDS ORDERED: FERR1TAB13 PO (22:31)
[2018-01-01] MEDS ORDERED: MIRT30TA2 PO (22:31)
[2018-01-01] MEDS ORDERED: ARIPIprazole TAB 5 MG TAB PO ONE (22:45)
[2018-01-02] MEDS: hydrOXYzine HCL 25 MG TAB PO PRN ×2 (00:21→21:32)
[2018-01-02] MEDS: ACETAMINOPHEN 325 MG TAB PO PRN ×5 (00:25→21:26)
[2018-01-02 06:48] VITALS: BP_SYST 118; BP_SYST 122; BP_DIAS 83; BP_DIAS 86; PULSE 128; PULSE 96; TEMP 37
[2018-01-02 06:51] VITALS: Ht 167.6 cm; Wt 76.7 kg
[2018-01-02] MEDS ORDERED: QUET1TAB34 PO (07:34)
[2018-01-02] MEDS ORDERED: HYDR50CA2 PO (07:35)
[2018-01-02] MEDS ORDERED: ARIP20TA4 PO (07:38)
[2018-01-02] MEDS ORDERED: FOLI1TAB8 PO (07:39)
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
[2018-01-02] MEDS ORDERED: ARIPIprazole TAB 5 MG TAB PO SCH (09:00)
[2018-01-02] MEDS: AMOXICILLIN/CLAVULANATE TAB 875 MG TAB PO SCH ×2 (09:09→17:25)
[2018-01-02] MEDS: GABAPENTIN 600 MG TAB PO SCH ×3 (09:10→21:32)
[2018-01-02] MEDS: PANTOprazole SOD 40 MG TAB PO SCH ×2 (09:10→21:32)
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
[2018-01-02] MEDS: NICOTINE 21 MG/24 HR TDSY TD SCH (09:52)
[2018-01-02] MEDS ORDERED: FLUCONAZOLE 100 MG TAB PO ONE (12:15)
[2018-01-02] MEDS: hydrOXYzine HCL 25 MG TAB PO SCH (16:44)
[2018-01-02] MEDS: IBUPROFEN 800 MG TAB PO PRN (16:45)
[2018-01-02] MEDS: MIRTAZAPINE SOLTAB 15 MG PO SCH (21:32)
[2018-01-03 06:50] VITALS: BP_SYST 110; BP_SYST 126; BP_DIAS 64; BP_DIAS 82; PULSE 111; PULSE 96; TEMP 36.6
[2018-01-03] MEDS: IBUPROFEN 800 MG TAB PO PRN ×2 (06:54→16:43)
[2018-01-03] MEDS: AMOXICILLIN/CLAVULANATE TAB 875 MG TAB PO SCH ×2 (08:46→17:11)
[2018-01-03] MEDS: PANTOprazole SOD 40 MG TAB PO SCH ×2 (08:46→21:40)
[2018-01-03] MEDS: GABAPENTIN 600 MG TAB PO SCH ×3 (08:46→21:40)
[2018-01-03] MEDS: ARIPIprazole TAB 10 MG TAB PO SCH (08:46)
[2018-01-03] MEDS: hydrOXYzine HCL 25 MG TAB PO SCH ×2 (08:46→17:11)
[2018-01-03] MEDS: NICOTINE 21 MG/24 HR TDSY TD SCH (08:53)
[2018-01-03] MEDS: NICOTINE POLACRILEX 2 MG GUM MT PRN (08:59)
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
[2018-01-03] MEDS: hydrOXYzine HCL 25 MG TAB PO PRN (14:40)
[2018-01-03] MEDS: MIRTAZAPINE SOLTAB 15 MG PO SCH (21:40)
[2018-01-04 06:57] VITALS: BP_SYST 115; BP_SYST 137; BP_DIAS 74; BP_DIAS 88; PULSE 102; PULSE 120; TEMP 36.5
[2018-01-04] MEDS: ARIPIprazole TAB 10 MG TAB PO SCH (08:25)
[2018-01-04] MEDS: AMOXICILLIN/CLAVULANATE TAB 875 MG TAB PO SCH ×2 (08:26→17:00)
[2018-01-04] MEDS: GABAPENTIN 600 MG TAB PO SCH ×3 (08:26→21:04)
[2018-01-04] MEDS: PANTOprazole SOD 40 MG TAB PO SCH ×2 (08:27→21:04)
[2018-01-04] MEDS: NICOTINE 21 MG/24 HR TDSY TD SCH (08:27)
[2018-01-04] MEDS: hydrOXYzine HCL 25 MG TAB PO SCH ×3 (08:27→21:05)
[2018-01-04] MEDS: IBUPROFEN 800 MG TAB PO PRN (09:23)
[2018-01-04] MEDS: NICOTINE POLACRILEX 2 MG GUM MT PRN ×3 (09:23→18:33)
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
--- NOTE | 2018-01-04 14:30 | Medical Consult ---
Consultation Date of Consultation: Jan 04, 2018. Attending Physician: Ange Gardner M.D. Reason for Consultation: STD screening History of Present Illness Patient is a 32 yo ( 3 , 1 CS) who was admitted to 3rd floor and c/o vaginal discharge, itching, yeast and wanted to be screened for " all STD"s She took Diflucan tb 2 days ago and still has itching on vulva and rectal area and discharge She admits having unprotected intercourse recently She also c/o ongoing pelvic pain for long time and missing her period for months Not sure when her last period was Thye used to be regular before She denies possibility of sine she had had her tubes cut and tied in 2008 with her Csection She denies fever/ chills/ N&V of feeling sick She has h/o Chlamydia in the past and was treated No h/o HSV but she likes to be screened for that too. No h/o abnormal pap smear but has not had one for a while. Past Medical/Surgical History Medical Problems: (1) Depression Status: Acute (2) Elevated LFTs Status: Acute (3) Overdose Status: Acute (4) Suicide gesture Status: Acute (5) Syncope and collapse Status: Acute Family History FHx: cancer FHx: diabetes FHx: gallbladder disease FHx: heart disease FHx: hypertension FHx: kidney disease/stones FHx: lung disease FHx: seizures Social History Smoking Status: Current Every Day Smoker Drug Use: marijuana Marital Status: single, in relationship Housing Status: lives alone Occupation Status: employed Allergies Coded Allergies: Carbamazepine (Unverified Allergy, Intermediate, RASH, 12/04/17) Propoxyphene (Unverified Allergy, Mild, 11/27/17) Lamotrigine (Unverified Allergy, Unknown, HIVES, 11/27/17) Tramadol (Verified Adverse Reaction, Severe, hx. of seizure WHEN taking tramadol WITH EFFEXOR, 11/27/17) hx. of seizure taking tramadol and effexor together Venlafaxine (Verified Adverse Reaction, Severe, HX OF SEIZURE WHEN TAKING TRAMADOL WITH EFFEXOR, 11/27/17) hx. of seizure taking tramadol and effexor together Current Inpatient Medications Current Inpatient Medications Medications (Trade) Dose Ordered Sig/Levy Route Start Time Stop Time Status Last Admin Dose Admin Acetaminophen (Tylenol Tab) 650 mg Q4H PRN PO 01/01/18 21:15 01/31/18 21:14 01/02/18 21:26 650 MG Bismuth Subsalicylate (Kaopectate Liqd) 15 ml PRN PRN PO 01/01/18 21:15 01/31/18 21:14 Al Hydroxide/Mg Hydroxide (Maalox Susp) 30 ml Q4H PRN PO 01/01/18 21:15 01/31/18 21:14 Magnesium Hydroxide (Milk Of Magnesia Susp) 30 ml DAILY PRN PO 01/01/18 21:15 01/31/18 21:14 Sodium Chloride ([place] Nasal [place]) PRN PRN NA 01/01/18 21:15 01/31/18 21:14 Hydroxyzine HCl (Vistaril Tab) 50 mg HSZ PRN PO 01/01/18 21:15 01/31/18 21:14 01/02/18 21:32 50 MG Hydroxyzine HCl (Vistaril Tab) 25 mg Q4H PRN PO 01/01/18 21:15 01/31/18 21:14 01/03/18 14:40 25 MG Nicotine (Nicoderm Cq 21MG Patch) 1 patch QAM TD 01/02/18 09:00 02/01/18 08:59 01/04/18 08:27 1 PATCH Miscellaneous (Remove Nicoderm Patch) 1 ea HS N/A 01/01/18 22:00 01/31/18 21:59 Albuterol (Ventolin Hfa Inhaler) 2 puffs Q4H PRN INH 01/01/18 21:30 01/31/18 21:29 Amoxicillin/ Clavulanate Potassium (Augmentin Tab) 875 mg BIDM PO 01/02/18 09:00 01/09/18 08:59 01/04/18 08:26 875 MG Folic Acid (Folvite Tab) 1 mg DAILY PO 01/02/18 09:00 02/01/18 08:59 01/04/18 08:26 1 MG Gabapentin (Neurontin Tab) 600 mg TID PO 01/01/18 22:00 01/31/18 21:59 01/04/18 13:36 600 MG Pantoprazole Sodium (Protonix Tab) 40 mg BID PO 01/01/18 22:00 01/31/18 21:59 01/04/18 08:27 40 MG Haloperidol (Haldol Tab) 5 mg Q4H PRN PO 01/01/18 22:45 01/31/18 22:44 Ibuprofen (Motrin Tab) 800 mg TID PRN PO 01/02/18 10:00 02/01/18 09:59 01/04/18 09:23 800 MG Nicotine Polacrilex (Nicorette 2MG Gum) 1 piece Q2H PRN MT 01/02/18 10:00 02/01/18 09:59 01/04/18 12:25 1 PIECE Mirtazapine (Remeron Solutab) 45 mg HS PO 01/02/18 22:00 02/01/18 21:59 01/03/18 21:40 45 MG Aripiprazole (Abilify Tab) 20 mg QAM PO 01/03/18 09:00 02/01/18 08:59 01/04/18 08:25 20 MG Hydroxyzine HCl (Vistaril Tab) 50 mg TID PO 01/04/18 14:00 02/01/18 16:59 01/04/18 13:36 50 MG Review of Systems Constitutional: No fever, No chills, No sweats, No weight loss, No weakness, No fatigue, No problem reported Cardiovascular: No chest pain, No orthopnea, No PND, No edema, No claudication , No palpitations, No problem reported Genitourinary - Female: + dysuria, + urinary frequency, + urinary urgency, + urinary incontinence, + urinary retention, + hematuria, + dysmenorrhea, + menorrhagia, + metrorrhagia, + rash, + vaginal bleeding, + vaginal discharge, + vaginal itching, + vulvodynia, + , + problem reported (no periods for months) Physical Exam Date Time Temp Pulse Resp B/P (MAP) Pulse Ox O2 Delivery O2 Flow Rate FiO2 01/04/18 06:57 36.5 102 16 137/88 120 115/74 General Appearance: WD/WN, no apparent distress Head: normocephalic, atraumatic Eyes: normal inspection Neck: supple, no adenopathy Respiratory/Chest: chest non-tender, lungs clear Cardiovascular: regular rate, rhythm Abdomen/GI: normal bowel sounds, non tender, soft Genitourinary - Female: normal cervix, uterus normal shape and size, + adnexal tenderness, + pertinent finding (diffuse rash and white area on skin of vulva and perianal region, irritation from dicharge and anal skin appears as eczomatous) Laboratory Results Last 24 Hours Test 01/04/18 14:15 01/04/18 14:17 01/04/18 14:20 Last 24 Hours Test 01/04/18 14:15 01/04/18 14:17 Assessment & Plan 32 yo female s/p CSCection and BTL in 2008, s/p unprotected intercourse and desire for " all STD" screening h/o pelvic pain s/p 1 dose of Diflucan 2 days ago Found to have vulvar irritation, perianal eczema STD screening completed Recommended cultures, pap smear, blood work for STD, [facility] Pelvic US Another dose of Diflucan Steroid cream for perianal skin and dermatology consult 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
[2018-01-04] MEDS ORDERED: FLUCONAZOLE 50 MG TAB PO ONE (14:45)
[2018-01-04] MEDS ORDERED: NURSING VERBAL MED ORDER ONE (15:15)
[2018-01-04] MEDS ORDERED: POLYETHYLENE (MIRALAX) 17 GM PACK PO SCH (15:30)
[2018-01-04 16:12] LABS: HEP C IGG 13 YRS+OLDER_RFLX PRELIM POS (NEG)
[2018-01-04] MEDS: NYSTATIN/TRIAMCINOLONE OINT 15 GM TUBE EXT SCH ×2 (16:38→21:04)
[2018-01-04] MEDS: hydrOXYzine HCL 25 MG TAB PO PRN (18:14)
[2018-01-04] MEDS: MIRTAZAPINE SOLTAB 15 MG PO SCH (21:05)
[2018-01-05 06:47] VITALS: BP_SYST 104; BP_SYST 113; BP_DIAS 75; BP_DIAS 79; PULSE 129; PULSE 98; TEMP 36.7
--- NOTE | 2018-01-05 08:14 | DIAGNOSTIC IMAGING REPORT ---
PELVIC COMPLETE NON OB CLINICAL HISTORY: pelvic pain PAIN COMPARISON STUDY: 11/20/2006 FINDINGS: The uterus measured 11 cm.. The endometrial stripe measured 1.5 cm considered thickened. The right ovary measured 3.6 cm maximum dimension with normal vascular flow. The left ovary measured 3.3 cm maximum dimension with normal vascular flow. There is no ultrasonographic evidence of ovarian torsion. It should be noted that ovarian torsion can be present with normal Doppler ultrasonographic findings. There was no evidence of pathologic free pelvic fluid. IMPRESSION: 1. Thickened endometrium at 1.5 cm. 2. This potentially relates to the phase of menstrual cycle versus endometrial hyperplasia. 3. Study is otherwise negative. The above report was generated using voice recognition software. It may contain grammatical, syntax or spelling errors. Electronically signed by: Rojas Templeton M.D. 01/05/2018 8:12 AM Dictated Date/Time: 01/05/2018 8:11 AM
[2018-01-05] MEDS: GABAPENTIN 600 MG TAB PO SCH ×3 (08:44→20:59)
[2018-01-05] MEDS: PANTOprazole SOD 40 MG TAB PO SCH ×2 (08:44→21:00)
[2018-01-05] MEDS: AMOXICILLIN/CLAVULANATE TAB 875 MG TAB PO SCH ×2 (08:44→17:23)
[2018-01-05] MEDS: ARIPIprazole TAB 10 MG TAB PO SCH (08:44)
[2018-01-05] MEDS: NYSTATIN/TRIAMCINOLONE OINT 15 GM TUBE EXT SCH ×2 (08:45→21:03)
[2018-01-05] MEDS: NICOTINE POLACRILEX 2 MG GUM MT PRN ×2 (08:45→13:11)
[2018-01-05] MEDS: hydrOXYzine HCL 25 MG TAB PO SCH ×3 (08:45→21:00)
[2018-01-05] MEDS: POLYETHYLENE (MIRALAX) 17 GM PACK PO PRN (08:47)
[2018-01-05] MEDS: NICOTINE 21 MG/24 HR TDSY TD SCH (09:10)
[2018-01-05] MEDS ORDERED: HALOPERIDOL 5 MG TAB PO PRN (09:15)
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
[2018-01-05] MEDS: HALOPERIDOL 5 MG TAB PO PRN ×2 (10:01→14:33)
[2018-01-05] MEDS: HALOPERIDOL 5 MG TAB PO SCH (20:59)
[2018-01-05] MEDS: MIRTAZAPINE SOLTAB 15 MG PO SCH (21:00)
[2018-01-06 07:02] VITALS: BP_SYST 102; BP_SYST 97; BP_DIAS 70; BP_DIAS 75; PULSE 81; PULSE 99; TEMP 36.6
[2018-01-06] MEDS: hydrOXYzine HCL 25 MG TAB PO SCH ×3 (08:38→21:00)
[2018-01-06] MEDS: NYSTATIN/TRIAMCINOLONE OINT 15 GM TUBE EXT SCH ×2 (08:38→20:59)
[2018-01-06] MEDS: AMOXICILLIN/CLAVULANATE TAB 875 MG TAB PO SCH ×2 (08:38→18:31)
[2018-01-06] MEDS: HALOPERIDOL 5 MG TAB PO SCH ×2 (08:38→21:00)
[2018-01-06] MEDS: GABAPENTIN 600 MG TAB PO SCH ×3 (08:38→21:00)
[2018-01-06] MEDS: PANTOprazole SOD 40 MG TAB PO SCH ×2 (08:38→21:00)
[2018-01-06] MEDS: NICOTINE 21 MG/24 HR TDSY TD SCH (08:39)
[2018-01-06] MEDS: NICOTINE POLACRILEX 2 MG GUM MT PRN ×2 (08:39→12:55)
[2018-01-06] MEDS: POLYETHYLENE (MIRALAX) 17 GM PACK PO PRN (09:08)
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
[2018-01-06] MEDS: HALOPERIDOL 5 MG TAB PO PRN (12:55)
[2018-01-06] MEDS ORDERED: BISACODYL 5 MG TABEC PO PRN (14:30)
[2018-01-06] MEDS ORDERED: BISACODYL 5 MG TABEC PO ONE (14:30)
[2018-01-06] MEDS: ACETAMINOPHEN 325 MG TAB PO PRN (16:37)
[2018-01-06] MEDS: BENZTROPINE MESYLATE 1 MG TAB PO PRN (16:39)
[2018-01-06] MEDS: MIRTAZAPINE SOLTAB 15 MG PO SCH (21:00)
[2018-01-06 23:31] LABS: HERPES SIMPLEX AB IGG-2 < 0.90 INDEX (< 0.90)
[2018-01-07 06:48] VITALS: BP_SYST 97; BP_SYST 99; BP_DIAS 65; BP_DIAS 68; PULSE 78; PULSE 99; TEMP 36.6
[2018-01-07] MEDS: AMOXICILLIN/CLAVULANATE TAB 875 MG TAB PO SCH (08:34)
[2018-01-07] MEDS: PANTOprazole SOD 40 MG TAB PO SCH ×2 (08:34→20:58)
[2018-01-07] MEDS: hydrOXYzine HCL 25 MG TAB PO SCH ×3 (08:34→20:59)
[2018-01-07] MEDS: GABAPENTIN 600 MG TAB PO SCH ×3 (08:34→20:58)
[2018-01-07] MEDS: NICOTINE 21 MG/24 HR TDSY TD SCH (08:44)
[2018-01-07] MEDS: NYSTATIN/TRIAMCINOLONE OINT 15 GM TUBE EXT SCH ×2 (08:45→20:58)
[2018-01-07] MEDS ORDERED: HALOPERIDOL 5 MG TAB PO SCH (09:00)
[2018-01-07] MEDS: BENZTROPINE MESYLATE 1 MG TAB PO PRN (09:20)
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
[2018-01-07] MEDS: NICOTINE POLACRILEX 2 MG GUM MT PRN ×2 (13:13→16:11)
[2018-01-07] MEDS: HALOPERIDOL 5 MG TAB PO SCH ×2 (14:41→20:58)
--- NOTE | 2018-01-07 16:27 | OB/GYN Progress Note ---
[facility] Progress Note Date of Service: Jan 07, 2018. Patient is seen and explained about the results of STD screening and US STD screening negative HSV I IGG+, but she has h/o labial cold sore, could be from that GC/ Chlamydia/ Trichomonas cx were negative Routine vaginal cx showed yeas: she took 2 doses of Diflucan and on cream, feels better in terms of itching already' US: normal uterus and ovaries but thickened endometrium at 15 mm, BHGC negative Last period was 2 months ago, could be from period being late Stress may influenced her cycles and became irregular Discussed with her that endometrium should be thin after period Recommended 10 days of Provera and then have a period after stopping the pills and then have US right after period on cycle day 7 She will call on cycle day 1 to schedule US with us at [facility] office She is a [employer] patient and knows the location I will place the orders in [employer] system for her Recommend to f/u with us as outpatient All questions were answered
[2018-01-07] MEDS ORDERED: [UNRECOGNIZED DRUG - CODE] PO (16:28)
[2018-01-07 20:36] LABS: HEPATITIS C RNA TMA QUAL Detected
[2018-01-07] MEDS: MIRTAZAPINE SOLTAB 15 MG PO SCH (20:59)
[2018-01-08 06:24] VITALS: BP_SYST 104; BP_SYST 92; BP_DIAS 53; BP_DIAS 63; PULSE 81; PULSE 84; TEMP 36.5
[2018-01-08] MEDS: HALOPERIDOL 5 MG TAB PO SCH ×2 (08:36→21:24)
[2018-01-08] MEDS: PANTOprazole SOD 40 MG TAB PO SCH ×2 (08:36→21:23)
[2018-01-08] MEDS: GABAPENTIN 600 MG TAB PO SCH ×3 (08:36→21:23)
[2018-01-08] MEDS: NYSTATIN/TRIAMCINOLONE OINT 15 GM TUBE EXT SCH ×2 (08:36→21:24)
[2018-01-08] MEDS: hydrOXYzine HCL 25 MG TAB PO SCH ×3 (08:36→21:24)
[2018-01-08] MEDS: NICOTINE 21 MG/24 HR TDSY TD SCH (08:36)
[2018-01-08] MEDS: NICOTINE POLACRILEX 2 MG GUM MT PRN ×2 (08:37→17:57)
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
--- NOTE | 2018-01-08 11:24 | Psych Management Progress Note ---
Psychiatry Miscellaneous Date of Service: Jan 08, 2018. Patient seen, MS assessed. Rates mood as improving, expresses interest in Haldol decanoate and medication assisted treatment. Encouraged cooperation with care and treatment plan as outlined by allied health prescriber.
[2018-01-08] MEDS ORDERED: HALOPERIDOL DECANOATE INJ 50 MG/ML VIAL IM ONE (12:00)
[2018-01-08] MEDS: BENZTROPINE MESYLATE 1 MG TAB PO PRN (12:47)
[2018-01-08] MEDS ORDERED: TUBERCULIN SKIN TEST 5 TU in SYRINGE 0 ML ID ONE (14:00)
[2018-01-08] MEDS: MIRTAZAPINE SOLTAB 15 MG PO SCH (21:24)
[2018-01-09 07:04] VITALS: BP_SYST 106; BP_SYST 98; BP_DIAS 63; BP_DIAS 73; PULSE 75; PULSE 88; TEMP 36.5
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
[2018-01-09] MEDS: HALOPERIDOL 5 MG TAB PO SCH ×3 (08:23→20:57)
[2018-01-09] MEDS: GABAPENTIN 600 MG TAB PO SCH ×3 (08:23→20:57)
[2018-01-09] MEDS: NYSTATIN/TRIAMCINOLONE OINT 15 GM TUBE EXT SCH ×2 (08:23→20:57)
[2018-01-09] MEDS: PANTOprazole SOD 40 MG TAB PO SCH ×2 (08:23→20:57)
[2018-01-09] MEDS: hydrOXYzine HCL 25 MG TAB PO SCH ×3 (08:24→20:58)
[2018-01-09] MEDS: NICOTINE 21 MG/24 HR TDSY TD SCH (08:24)
[2018-01-09] MEDS: NICOTINE POLACRILEX 2 MG GUM MT PRN ×3 (08:30→15:33)
[2018-01-09] MEDS: BENZTROPINE MESYLATE 1 MG TAB PO PRN (12:31)
[2018-01-09] MEDS: HALOPERIDOL 5 MG TAB PO PRN (12:32)
[2018-01-09] MEDS: MIRTAZAPINE SOLTAB 15 MG PO SCH (20:58)
[2018-01-10 06:36] VITALS: BP_SYST 105; BP_SYST 99; BP_DIAS 61; BP_DIAS 69; PULSE 61; PULSE 85; TEMP 36.5
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
[2018-01-10] MEDS: NYSTATIN/TRIAMCINOLONE OINT 15 GM TUBE EXT SCH ×2 (08:14→21:30)
[2018-01-10] MEDS: HALOPERIDOL 5 MG TAB PO SCH ×2 (08:15→21:31)
[2018-01-10] MEDS: PANTOprazole SOD 40 MG TAB PO SCH ×2 (08:15→21:31)
[2018-01-10] MEDS: GABAPENTIN 600 MG TAB PO SCH ×3 (08:15→21:31)
[2018-01-10] MEDS: hydrOXYzine HCL 25 MG TAB PO SCH ×3 (08:16→21:31)
[2018-01-10] MEDS: NICOTINE 21 MG/24 HR TDSY TD SCH (08:21)
[2018-01-10] MEDS: NICOTINE POLACRILEX 2 MG GUM MT PRN ×3 (08:36→17:42)
[2018-01-10] MEDS ORDERED: MIRT45TA3 PO (09:22)
[2018-01-10] MEDS ORDERED: HALO100I2 IM (09:22)
[2018-01-10] MEDS ORDERED: NRN600 PO (09:22)
[2018-01-10] MEDS ORDERED: NCR2 MT (09:22)
[2018-01-10] MEDS ORDERED: NICO21DI4 TD (09:22)
[2018-01-10] MEDS ORDERED: ATR25 PO (09:22)
[2018-01-10] MEDS ORDERED: HLD5X PO (09:22)
[2018-01-10] MEDS ORDERED: BENZ-88 PO (09:22)
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
[2018-01-10] MEDS: BENZTROPINE MESYLATE 1 MG TAB PO PRN ×2 (11:25→17:41)
[2018-01-10] MEDS ORDERED: PPD CHECK SCH (14:15)
[2018-01-10] MEDS: HALOPERIDOL 5 MG TAB PO PRN (17:41)
[2018-01-10] MEDS: MIRTAZAPINE SOLTAB 15 MG PO SCH (21:31)
[2018-01-11] MEDS ORDERED: HALOPERIDOL DECANOATE INJ 50 MG/ML VIAL IM ONE (07:00)
[2018-01-11 07:05] VITALS: BP_SYST 102; BP_SYST 104; BP_DIAS 67; BP_DIAS 73; PULSE 114; PULSE 92; TEMP 36.6
[2018-01-11] MEDS: HALOPERIDOL 5 MG TAB PO SCH (07:47)
[2018-01-11] MEDS: GABAPENTIN 600 MG TAB PO SCH (07:47)
[2018-01-11] MEDS: PANTOprazole SOD 40 MG TAB PO SCH (07:47)
[2018-01-11] MEDS: hydrOXYzine HCL 25 MG TAB PO SCH (07:48)
[2018-01-11] MEDS: NICOTINE 21 MG/24 HR TDSY TD SCH (07:48)
[2018-01-11] MEDS: NICOTINE POLACRILEX 2 MG GUM MT PRN (07:49)
[2018-01-11] MEDS: NYSTATIN/TRIAMCINOLONE OINT 15 GM TUBE EXT SCH (07:50)
[2018-01-11] MEDS ORDERED: DESTROY THIS MEDICATION ONE (08:15)
== END 2018-01-11 08:02 | disposition home or self-care (01) | DRG 885 ==
LOC: C.MHU 19:42
PROVIDERS: ADMIT Psychiatry & Neurology Child & Adolescent Psychiatry; ATTEND Psychiatry & Neurology Child & Adolescent Psychiatry
DX: F31.9 Bipolar disorder, unspecified (principal); B18.2 Chronic viral hepatitis C; M54.9 Dorsalgia, unspecified; F17.200 Nicotine dependence, unspecified, uncomplicated; B37.3 Candidiasis of vulva and vagina; F12.10 Cannabis abuse, uncomplicated; F19.10 Other psychoactive substance abuse, uncomplicated; Z84.1 Family history of disorders of kidney and ureter; F11.11 Opioid abuse, in remission; Z83.3 Family history of diabetes mellitus; Z82.49 Family history of ischemic heart disease and other diseases of the circulatory system

== ENCOUNTER 2018-11-29 18:35 | Inpatient (IN) ==
--- OUTSIDE RECORDS SUMMARY | 2018-11-29 18:40 | External Medical Summary | Continuity of Care Document ---
:1985 Author Name Colleen Harvey, Provider Address Unavailable Unavailable , Care Team Providers Name Role Phone Dax [email or web address] [email or web address] PCP, NO Unavailable Unavailable Problems Active medical history not documented Allergies and Adverse Reactions Allergy history not documented Medications Medications not documented Procedures Procedures not documented Immunizations Immunizations not documented Plan of Treatment Planned Observations Planned Goals not documented Results No Known Results Results not documented
[2018-11-29 19:41] LABS: Appearance Urine Cloudy (Clear); Bacteria Urine Automated 1+ (Negative); Blood Urine 3+ (Negative); Color Urine Dark Yellow; Epithelial Cell Urine Auto >30 /lpf (0-5); Glucose Urine UA Negative (Negative); Ketones Urine 1+ (Negative); Leukocyte Esterase Urine 2+ (Negative); Nitrite Urine Negative (Negative); Protein Urine Negative (Negative); Specific Gravity Urine 1.028 (1.000-1.030); Urobilinogen Urine Negative (Negative); WBC Urine Automated >30 /hpf (0-5); pH Urine 5.5 (4.5-7.5)
[2018-11-29 20:01] LABS: Bilirubin Urine Negative (Negative); Ictotest Urine Negative (Negative)
[2018-11-29 20:05] LABS: Cast Urine Automated 0 /lpf (0-5)
[2018-11-29 20:11] LABS: Basophils # (auto) 0.02 K/uL (0-0.2); Basophils % (auto) 0.5 %; Eosinophils # (auto) 0.05 K/uL (0-0.5); Eosinophils % (auto) 1.2 %; Lymphocytes # (auto) 1.23 K/uL (1.2-3.4); Lymphocytes % (auto) 30.1 %; Mean Corpuscular Hgb Conc 33.3 g/dL (32-36); Mean Corpuscular Volume 78.8 fL (80-100); Mean Platelet Volume 10.2 fL (7.4-10.4); Monocytes # (auto) 0.21 K/uL (0.11-0.59); Monocytes % (auto) 5.1 %; Neutrophils # (auto) 2.57 K/uL (1.4-6.5); Neutrophils % (auto) 63.1 %; Platelet Count 160 K/uL (130-400); RDW Coefficient of Variation 15.1 % (11.5-14.5); RDW Standard Deviation 43.6 fL (36.4-46.3); Red Blood Count 4.57 M/uL (4.2-5.4); White Blood Count 4.08 K/uL (4.8-10.8)
[2018-11-29 20:29] LABS: Albumin Level 3.9 gm/dl (3.4-5.0); BUN Creatinine Ratio 12.4 (10-20); Calcium 8.9 mg/dl (8.5-10.1); Creatinine Clr Calc Pharmacy 108.8 ml/min; Est GFR (African American) 96.7; Est GFR (Non-African American) 83.4; Potassium 3.6 mmol/L (3.5-5.1)
[2018-11-29 20:33] LABS: Amphetamines+Metham, Urine Pos (Neg); Barbiturates, Urine Neg (Neg); Benzodiazepine, Urine Neg (Neg); Cocaine, Urine Neg (Neg); MDMA (Ecstacy), Urine Pos (Neg); Methadone, Urine Pos (Neg); Opiate, Urine Neg (Neg); Phencyclidine, Urine Neg (Neg)
[2018-11-29 20:39] LABS: Acetaminophen < 2 ug/ml (10-30); Albumin Globulin Ratio 1.1 (0.9-2); Bilirubin,Total 0.6 mg/dl (0.2-1); Globulin 3.5 gm/dl (2.5-4.0); Salicylate 3.5 mg/dl (2.8-20); Total Protein 7.4 gm/dl (6.4-8.2)
[2018-11-29] MEDS ORDERED: NITROFURANTOIN MONOHYDRATE 100 MG CAP PO STA (20:49)
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
[2018-11-29] MEDS ORDERED: BENZTROPINE MESYLATE 1 MG TAB PO SCH (23:45)
[2018-11-29] MEDS ORDERED: HALOPERIDOL 5 MG TAB PO SCH (23:45)
[2018-11-30] MEDS ORDERED: SODIUM CHLORIDE 0.65% NA SOLN 45 ML (OCEAN) PRN (01:27)
[2018-11-30] MEDS ORDERED: BISMUTH SUBSALICYLATE PER ML OMNICELL CHARGE PO PRN (01:27)
[2018-11-30] MEDS ORDERED: ALUMINUM/MAGNESIUM SUSP 30 ML UDC PO PRN (01:27)
[2018-11-30] MEDS ORDERED: ACETAMINOPHEN 325 MG TAB PO PRN (01:27)
[2018-11-30] MEDS ORDERED: MAGNESIUM HYDROXIDE SUSP 30 ML UDC PO PRN (01:27)
[2018-11-30] MEDS ORDERED: PANTOprazole 40 MG TAB PO ONE (02:00)
[2018-11-30] MEDS ORDERED: MIRTAZAPINE TAB 15 MG TAB PO ONE (02:00)
[2018-11-30] MEDS ORDERED: GABAPENTIN 600 MG TAB PO ONE (02:00)
[2018-11-30] MEDS ORDERED: LORazepam 2 MG/ML VIAL (IM USE) IM PRN (02:22)
[2018-11-30] MEDS ORDERED: HALOPERIDOL LACTATE 5 MG/ML 1 ML VIAL IM PRN (02:29)
[2018-11-30] MEDS: LORazepam 1 MG TAB PO PRN ×2 (02:38→22:52)
[2018-11-30] MEDS ORDERED: HydrALAZINE TAB 50 MG TAB PO ONE (02:45)
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
[2018-11-30] MEDS ORDERED: HALOPERIDOL 5 MG TAB PO SCH (09:00)
[2018-11-30] MEDS ORDERED: HydrALAZINE TAB 50 MG TAB PO SCH (09:00)
[2018-11-30] MEDS: PANTOprazole 40 MG TAB PO SCH ×2 (10:30→14:03)
[2018-11-30] MEDS: GABAPENTIN 600 MG TAB PO SCH ×3 (10:30→21:37)
[2018-11-30] MEDS: NICOTINE 14 MG/24 HR PATCH TD SCH (10:30)
[2018-11-30] MEDS ORDERED: ALBUTEROL HFA 8 GM INHALER INH PRN (11:44)
[2018-11-30] MEDS ORDERED: ONDANSETRON 8 MG TABLET PO PRN (11:44)
[2018-11-30] MEDS: ARIPiprazole 15 MG TAB PO SCH (14:00)
[2018-11-30] MEDS: METHADONE ORAL SOLN 2 MG/ML PO SCH (14:01)
[2018-11-30] MEDS: PATIENT'S OWN CONTROLLED MED PO SCH (14:02)
[2018-11-30] MEDS: FERROUS SULFATE 325 MG TAB PO SCH (14:03)
[2018-11-30] MEDS: MIRTAZAPINE SOLTAB 15 MG PO SCH (21:37)
[2018-11-30] MEDS: PRAZOSIN HCL 1 MG CAP PO SCH (21:37)
[2018-11-30] MEDS ORDERED: MIRTAZAPINE TAB 15 MG TAB PO SCH (22:00)
[2018-11-30] MEDS: HALOPERIDOL 5 MG TAB PO PRN (22:52)
[2018-12-01 08:53] LABS: Glucose Fasting 59 mg/dl (70-99)
[2018-12-01 09:00] LABS: Chol HDL Ratio 5; Cholesterol 182 mg/dl (0-200); HDL Cholesterol 39 mg/dl; LDL Cholesterol Calculated 121 mg/dl; Triglycerides 110 mg/dl (0-150); VLDL Cholesterol 22 mg/dl
[2018-12-01] MEDS ORDERED: MEDROXYPROGESTERONE ACETATE 10 MG TAB PO SCH (09:00)
[2018-12-01] MEDS ORDERED: METHADONE PO SCH (09:00)
--- NOTE | 2018-12-01 09:19 | Psychiatric Progress Note ---
Date of Service December 01, 2018 Impression / Recommendations Impression 33-year-old female with a history of bipolar disorder type I and polysubstance abuse (heroin, now on methadone, recent IV methamphetamine, cannabis, and prescription medications and alcohol in the past) who presents with suicidality and predominant psychotic symptoms after she tried to jump out of a second story window at [facility]. She endorses constant auditory hallucinations of voices telling her that she harmed her child, that people are coming to kill her, and that she should kill herself. She is unable to reality test and lacks insight into her psychotic symptoms, believing that she hurt someone and that she should be punished and deserves to . She has been noncompliant with psychiatric treatment, psychotropic medications, case management, and continues to abuse illicit drugs which worsens her condition. We have filed for 304 involuntary commitment, with a plan to convert this to an involuntary outpatient commitment at the time of discharge, as she reports that this was helpful in the past to keep her in treatment. We will need to get collateral information as she is a very poor historian and unable to provide reliable information about the past few months. Inpatient treatment is medically necessary due to the risk for harm to both herself and others if discharged prematurely given the severity of her psychosis and inability to accurately interpret reality, with a suicide attempt by jumping out of a window prior to admission, responding to command auditory hallucinations, and inability to provide for her own basic needs given the severity of her psychiatric symptoms. (1) Suicidal thoughts: 11/30 -patient endorsed suicidal thoughts in the ER, and had attempted to jump out of a second story window prior to presentation. Suicidality appears to be driven by psychosis at this point, with command auditory hallucinations telling her to end her life. -Medically necessary private room due to severity of symptoms and unpredictable, impulsive behavior. -Suicide checks for safety. Present on Admission?: Yes (2) Bipolar disorder: 11/30 -history of bipolar disorder with frequent psychotic episodes, exacerbated by ongoing substance abuse (cannabis, methamphetamine, possibly others). -Current medications confirmed with outpatient records: Last discharged from our unit on Haldol Decanoate, but switched to aripiprazole by her outpatient psychiatrist in 07/2018 due to reports of sedation and weight gain. Will increase aripiprazole to 15 mg daily, and consider further increase to 30 mg daily if needed. If this is effective, she would benefit from the long-acting injectable Abilify Maintena. If ineffective, could consider short-term use of haloperidol which has been beneficial in the past. -Order fasting lipid profile and glucose for monitoring on an atypical antipsychotic. -Get collateral information from her mother or her outpatient clinicians. -Records reviewed from outpatient psychiatrist, Dr. Pina. She would benefit from a therapist and immigration case manager. Consider the need for a 304 involuntary outpatient commitment. -Involve her in groups and therapy when she is able to tolerate them. 12/01 -increase aripiprazole to 30 mg daily for tomorrow. If effective, transition to Maintena. Continue Haldol and Ativan as needed in the meantime. -Fasting glucose 59, cholesterol levels within normal. -Get collateral information as the patient is a very poor historian. -She is willing for re-referral for a blended case management. -File for 304 involuntary commitment, to transition to an involuntary outpatient commitment at the time of discharge. Present on Admission?: Yes (3) Methamphetamine abuse: 11/30 -UDS positive, likely contributing to insomnia, mood instability, and psychosis. -Recovery protocol. -Coordinate with [facility] and outpatient psychiatrist. -We will review recommendations for inpatient rehab once less psychotic. -Avoid prescribing controlled substances given the severity of her addictions issues. We will discontinue zolpidem. Present on Admission?: Yes (4) Heroin abuse: 11/30 -methadone dose confirmed with [facility]. Will need to inform them of her methamphetamine and cannabis use, and review plan for ongoing MAT prior to discharge. Present on Admission?: Yes (5) Cannabis abuse: Likely exacerbating psychotic symptoms. Once patient is less psychotic, will provide education about the risks of psychoactive substance abuse. Present on Admission?: Yes (6) Hepatitis C: Avoid hepatotoxic agents Risk Factors Assessment Male: No : Yes Health Problems: Yes Mental Health Diagnoses: Yes Substance Use Disorders: Yes Previous Attempt: Yes Family History of Suicide: Yes Previous Psychiatric Hospitalization: Yes Smoker: Yes Protective Factors Assessment Islam Beliefs: No : No Responsible for Young Children: No (Lost custody of her children, has not seen them in months.) Employed: Yes ([employer]) Stable Relationships: No Good Rapport with Provider: No Interval History Identifying Information ELZBIETA CARTAGENA is a 33-year-old F who currently lives in [place], has a history of bipolar disorder with psychosis and polysubstance abuse (heroin, opiate pain medications, benzodiazepines, cannabis, methamphetamine), and was admitted on 11/30/18 00:43 on a 201 voluntary commitment for psychosis and command auditory hallucinations telling her to kill herself, after she removed a screen and attempted to jump out of a second story window at [facility]. Chief Complaint "I thought I hurt my son really bad". Review of Systems Sleep Information Total Hours of Sleep: 6.5 Sleep Comments: slept 6.5 hours on the evening shift as well. medicated with haldol and ativan on the evening shift Meal Information Percent Meal Consumed - Breakfast: 0 Percent Meal Consumed - Lunch: 0 Percent Meal Consumed - Dinner: 100 Nutrition Comment: pt. asleep. Meal dated, labeled and refrigerated. Snack and fluids at bedside. Subjective Subjective Patient was seen & assessed and interval progress reviewed with Treatment Team. Staff reports she slept all day yesterday, coming out only to eat. She was awoken to take her medications, and also requested Haldol and Ativan as she was distressed by auditory hallucinations of voices telling her to kill herself, that she hurt her children, and that if she leaves the hospital they will get her. She said they were telling her they were coming to cut off her feet and "telling me awful things to do to myself." She was convinced that she had hurt her children and needed to call the police to tell them what she did. Staff attempted to reassure her. On my assessment today, she states she is hearing voices constantly telling her that she hurt her son badly, and although she does not remember doing this, she thinks that it is true because "the evidence is mounting." She does not believe the voices she is hearing or hallucinations, and repeatedly asks me if I can hear them too, and seems doubtful when I tell her I cannot. She admits that she has not seen her children in months, so cannot explain how she would have harmed any of them, but then says maybe she harmed "Edmond's kid." She says she is "not right in the head," and has poor memory of the events of the last several months. She endorses low mood, suicidal thoughts, and states she would definitely kill herself if she found out she had hurt a child. She does not feel safe, thinks "they are coming to get me, they are going to kill me, going to cut me to pieces." She reports hopelessness, and says "I don't think I am going to have a life." She states that prior to admission she was not sleeping, and wants Ambien for sleep. Advised that this is a controlled substance and contraindicated given her substance abuse, but she refuses any other medications, stating she has "tried everything and nothing works." She says she has been at [facility] for "a while," and prior to that was "just roaming around." She admits she was living with a friend "but it didn't work out." She says she was kicked out of the [facility] sometime this spring due to her drug use, and that she has been noncompliant with psychiatric care, medications, and case management. She is willing to get back into treatment, and is in agreement with our recommendation for a 304 outpatient commitment, stating she was on one in the past and it was helpful. She denies any current legal charges and says she no longer has a community service patrol officer, but thinks that she should have legal charges for harming her children. She admits to meth use over the past couple of weeks, with IV drug use, and also believes that someone injecting glass into her arm which she says she "deserved." She is unable to reality test, and although she admits that her family has told her she did not harm anyone, she does not believe them. She is in agreement with titrating her Abilify dose to target psychotic symptoms, with use of Haldol as needed in the interim. Physical Exam Psychiatric Orientation: alert, oriented to person, oriented to place and cooperative; + not oriented to time Apperance: appropriately dressed and + disheveled Overweight Eye Contact: + fair eye contact Motor Behavior: no abnormal motor movements Speech: normal rate/rhythm/volume of speech Affect: + depressed affect, + anxious affect and + constricted affect Fearful Mood: + depressed mood and + anxious mood Thought Process: + perseveration (On her belief that she harmed her children) Thought Content: + preoccupation, + paranoid, + delusions, + persecution, + hopelessness, + worthlessness and + guilt Suicidal Thoughts: + reports suicidal thoughts Homicidal Thoughts: denies homicidal thoughts But believes she seriously harmed 1 of her children. Hallucinations: + auditory hallucinations Cognition: language grossly intact; + recent memory not intact, + remote memory not intact and + attention not intact Insight: + severely impaired insight Judgement: + severely impaired judgement Vital Signs (Past 24 Hours) Last Vital Signs Temp 36.4 C L 12/01/18 06:53 Pulse 97 H 12/01/18 06:55 Resp 16 12/01/18 06:53 BP 110/70 12/01/18 06:55 Pulse Ox 95 11/30/18 01:39 Results & Data Laboratory Results Laboratory Results - last 24 hr 12/01/18 08:07 Fasting Glucose 59 L Triglycerides 110 Cholesterol 182 LDL Cholesterol, Calc 121 VLDL Cholesterol, Calc 22 HDL Cholesterol 39 Cholesterol/HDL Ratio 5 Current Inpatient Medications Current Inpatient Medications: Current Inpatient Medications Acetaminophen (Tylenol) 650 mg PO Q4H PRN PRN Reason: Headache or Minor Fever Stop: 12/30/18 01:26 Al Hydrox/Mg Hydrox/Simethicone (Maalox) 30 ml PO Q4H PRN PRN Reason: GI Upset Stop: 12/30/18 01:26 Albuterol (Ventolin Hfa) 2 puffs INH QID PRN PRN Reason: asthma Stop: 12/30/18 11:43 Aripiprazole (Abilify) 15 mg PO QAM [facility] Stop: 12/30/18 11:44 Last Admin: 11/30/18 14:00 Dose: 15 mg Documented by: Bismuth Subsalicylate (Kaopectate) 15 ml PO PRN PRN PRN Reason: Loose Stool Stop: 12/30/18 01:26 Ferrous Sulfate (Feosol) 325 mg PO BID [facility] Stop: 12/30/18 20:59 Last Admin: 11/30/18 14:03 Dose: 325 mg Documented by: Folic Acid (Folvite) 1 mg PO DAILY [facility] Stop: 12/31/18 08:59 Gabapentin (Neurontin) 600 mg PO TID [facility] Stop: 12/30/18 08:59 Last Admin: 11/30/18 21:37 Dose: 600 mg Documented by: Haloperidol (Haldol) 5 mg PO BID PRN PRN Reason: Anxiety/Agitation Stop: 12/30/18 02:17 Last Admin: 11/30/18 22:52 Dose: 5 mg Documented by: Haloperidol Lactate (Haldol) 5 mg IM BID PRN PRN Reason: Anxiety/Agitation Stop: 12/30/18 02:28 Hydroxyzine HCl (Vistaril) 50 mg PO HSZ PRN PRN Reason: Insomnia Stop: 12/30/18 01:26 Last Admin: 11/30/18 01:54 Dose: 50 mg Documented by: Hydroxyzine HCl (Vistaril) 25 mg PO Q4H PRN PRN Reason: Anxiety Stop: 12/30/18 01:26 Lorazepam (Ativan) 2 mg PO TID PRN PRN Reason: Anxiety/Agitation Stop: 12/30/18 02:20 Last Admin: 11/30/18 22:52 Dose: 2 mg Documented by: Lorazepam (Ativan) 2 mg IM BID PRN PRN Reason: Anxiety/Agitation Stop: 12/30/18 02:21 Magnesium Hydroxide (Milk Of Magnesia) 30 ml PO DAILY PRN PRN Reason: Heartburn Stop: 12/30/18 01:26 Medroxyprogesterone Acetate (Provera) 10 mg PO DAILY [facility] Stop: 12/31/18 08:59 Methadone HCl (Methadone Hcl) 112 mg PO DAILY [facility] Stop: 12/14/18 13:59 Last Admin: 11/30/18 14:01 Dose: 112 mg Documented by: Mirtazapine (Remeron Solutab) 45 mg PO HS [facility] Stop: 12/30/18 21:59 Last Admin: 11/30/18 21:37 Dose: 45 mg Documented by: Nicotine (Nicoderm Cq) 14 mg TD QAM [facility] Stop: 12/30/18 08:59 Last Admin: 11/30/18 10:30 Dose: 14 mg Documented by: Nicotine Polacrilex (Nicorette 2mg) 1 piece MT UD PRN PRN Reason: Nicotine Withdrawal Stop: 12/30/18 01:26 Non-Formulary Medication (Patient's Own Controlled Med) 1 ea PO QAM [facility] Stop: 12/14/18 13:59 Last Admin: 11/30/18 14:02 Dose: Not Given Documented by: Ondansetron HCl (Zofran Tab) 8 mg PO TID PRN PRN Reason: nausea Stop: 12/30/18 11:43 Pantoprazole Sodium (Protonix) 40 mg PO BID [facility] Stop: 12/30/18 08:59 Last Admin: 11/30/18 14:03 Dose: 40 mg Documented by: Prazosin HCl (Prazosin Hcl) 2 mg PO HS [facility] Stop: 12/30/18 21:59 Last Admin: 11/30/18 21:37 Dose: 2 mg Documented by: Sodium Chloride (Yadkin Nasal) 1 - 2 sprays NA PRN PRN PRN Reason: Nasal Dryness/Congestion Stop: 12/30/18 01:26 Mental Health & Subst Abuse Tx Therapist Name of Therapist: Denies Partnership Development Manager Name of Partnership Development Manager: Denies Post Discharge Appointments Primary Care Physician Name Of Family Doctor: Farhad Proctor CPT Code CPT Code 36309 [id number] (1) Bipolar disorder Active/Remission status: currently active Current episode severity: severe Psychotic features: with psychotic features
[2018-12-01] MEDS: METHADONE ORAL SOLN 2 MG/ML PO SCH (09:43)
[2018-12-01] MEDS: GABAPENTIN 600 MG TAB PO SCH ×3 (09:43→21:17)
[2018-12-01] MEDS: ARIPiprazole 15 MG TAB PO SCH (09:43)
[2018-12-01] MEDS: FERROUS SULFATE 325 MG TAB PO SCH ×2 (09:43→21:16)
[2018-12-01] MEDS: FOLIC ACID 1 MG TAB PO SCH (09:43)
[2018-12-01] MEDS: PANTOprazole 40 MG TAB PO SCH ×2 (09:43→21:18)
[2018-12-01] MEDS: HALOPERIDOL 5 MG TAB PO PRN ×2 (09:44→15:04)
[2018-12-01] MEDS: LORazepam 1 MG TAB PO PRN ×2 (09:44→15:04)
[2018-12-01] MEDS: PATIENT'S OWN CONTROLLED MED PO SCH (10:04)
[2018-12-01] MEDS: NICOTINE 14 MG/24 HR PATCH TD SCH (10:04)
[2018-12-01] MEDS ORDERED: BENZTROPINE MESYLATE 0.5 MG TAB PO PRN (14:04)
[2018-12-01] MEDS ORDERED: BENZTROPINE MESYLATE 1 MG/ML 2 ML AMP IM PRN (14:05)
[2018-12-01] MEDS ORDERED: HALOPERIDOL LACTATE 5 MG/ML 1 ML VIAL IM PRN (14:06)
[2018-12-01] MEDS: MIRTAZAPINE SOLTAB 15 MG PO SCH (21:18)
[2018-12-01] MEDS: PRAZOSIN HCL 1 MG CAP PO SCH (21:18)
[2018-12-02] MEDS: FOLIC ACID 1 MG TAB PO SCH (10:48)
[2018-12-02] MEDS: PANTOprazole 40 MG TAB PO SCH ×2 (10:48→20:58)
[2018-12-02] MEDS: ARIPiprazole 15 MG TAB PO SCH (10:48)
[2018-12-02] MEDS: GABAPENTIN 600 MG TAB PO SCH ×3 (10:48→20:58)
[2018-12-02] MEDS: NICOTINE 14 MG/24 HR PATCH TD SCH (10:49)
[2018-12-02] MEDS: FERROUS SULFATE 325 MG TAB PO SCH ×2 (10:49→20:58)
[2018-12-02] MEDS: METHADONE ORAL SOLN 2 MG/ML PO SCH (10:49)
[2018-12-02] MEDS: PATIENT'S OWN CONTROLLED MED PO SCH (10:49)
[2018-12-02] MEDS: LORazepam 1 MG TAB PO PRN ×2 (13:53→19:16)
[2018-12-02] MEDS: HALOPERIDOL 5 MG TAB PO PRN ×2 (13:53→19:16)
--- NOTE | 2018-12-02 19:07 | Psychiatric Progress Note ---
Date of Service December 02, 2018 Impression / Recommendations Impression 33-year-old female with a history of bipolar disorder type I and polysubstance abuse (heroin, now on methadone, recent IV methamphetamine, cannabis, and prescription medications and alcohol in the past) who presents with suicidality and predominant psychotic symptoms after she tried to jump out of a second story window at [facility]. She endorses constant auditory hallucinations of voices telling her that she harmed her child, that people are coming to kill her, and that she should kill herself. She is unable to reality test and lacks insight into her psychotic symptoms, believing that she hurt someone and that she should be punished and deserves to . She has been noncompliant with psychiatric treatment, psychotropic medications, case management, and continues to abuse illicit drugs which worsens her condition. We have filed for 304 involuntary commitment, with a plan to convert this to an involuntary outpatient commitment at the time of discharge, as she reports that this was helpful in the past to keep her in treatment. We will need to get collateral information as she is a very poor historian and unable to provide reliable information about the past few months. Inpatient treatment is medically necessary due to the risk for harm to both herself and others if discharged prematurely given the severity of her psychosis and inability to accurately interpret reality, with a suicide attempt by jumping out of a window prior to admission, responding to command auditory hallucinations, and inability to provide for her own basic needs given the severity of her psychiatric symptoms. (1) Suicidal thoughts: 11/30 -patient endorsed suicidal thoughts in the ER, and had attempted to jump out of a second story window prior to presentation. Suicidality appears to be driven by psychosis at this point, with command auditory hallucinations telling her to end her life. -Medically necessary private room due to severity of symptoms and unpredictable, impulsive behavior. -Suicide checks for safety. (2) Bipolar disorder: 11/30 -history of bipolar disorder with frequent psychotic episodes, exacerbated by ongoing substance abuse (cannabis, methamphetamine, possibly others). -Current medications confirmed with outpatient records: Last discharged from our unit on Haldol Decanoate, but switched to aripiprazole by her outpatient psychiatrist in 07/2018 due to reports of sedation and weight gain. Will increase aripiprazole to 15 mg daily, and consider further increase to 30 mg daily if needed. If this is effective, she would benefit from the long-acting injectable Abilify Maintena. If ineffective, could consider short-term use of haloperidol which has been beneficial in the past. -Order fasting lipid profile and glucose for monitoring on an atypical antipsychotic. -Get collateral information from her mother or her outpatient clinicians. -Records reviewed from outpatient psychiatrist, Dr. Pina. She would benefit from a therapist and case briefer. Consider the need for a 304 involuntary outpatient commitment. -Involve her in groups and therapy when she is able to tolerate them. 12/01 -increase aripiprazole to 30 mg daily for tomorrow. If effective, transition to Maintena. Continue Haldol and Ativan as needed in the meantime. -Fasting glucose 59, cholesterol levels within normal. -Get collateral information as the patient is a very poor historian. -She is willing for re-referral for a blended case management. -File for 304 involuntary commitment, to transition to an involuntary outpatient commitment at the time of discharge. 12/02 maintained treatment plan unchanged (3) Methamphetamine abuse: 11/30 -UDS positive, likely contributing to insomnia, mood instability, and psychosis. -Recovery protocol. -Coordinate with [facility] and outpatient psychiatrist. -We will review recommendations for inpatient rehab once less psychotic. -Avoid prescribing controlled substances given the severity of her addictions issues. We will discontinue zolpidem. (4) Heroin abuse: 11/30 -methadone dose confirmed with [facility]. Will need to inform them of her methamphetamine and cannabis use, and review plan for ongoing MAT prior to discharge. (5) Cannabis abuse: Likely exacerbating psychotic symptoms. Once patient is less psychotic, will provide education about the risks of psychoactive substance abuse. (6) Hepatitis C: Avoid hepatotoxic agents Risk Factors Assessment Male: No : Yes Health Problems: Yes Mental Health Diagnoses: Yes Substance Use Disorders: Yes Previous Attempt: Yes Family History of Suicide: Yes Previous Psychiatric Hospitalization: Yes Smoker: Yes Protective Factors Assessment Religion Beliefs: No : No Responsible for Young Children: No (Lost custody of her children, has not seen them in months.) Employed: Yes ([employer]) Stable Relationships: No Good Rapport with Provider: No Interval History Identifying Information ELZBIETA CARTAGENA is a 33-year-old F who currently lives in [place], has a history of bipolar disorder with psychosis and polysubstance abuse (heroin, opiate pain medications, benzodiazepines, cannabis, methamphetamine), and was admitted on 11/30/18 00:43 on a 201 voluntary commitment for psychosis and command auditory hallucinations telling her to kill herself, after she removed a screen and attempted to jump out of a second story window at [facility]. Chief Complaint "I beleive I did those things, I had nightmares last night and did not sleep well". Review of Systems Sleep Information Total Hours of Sleep: 10.75 Sleep Comments: pt appeared to sleep 3.75 hrs during evening shift. pt on q-15 minute checks Meal Information Percent Meal Consumed - Breakfast: 0 Percent Meal Consumed - Lunch: 0 Percent Meal Consumed - Dinner: 100 Nutrition Comment: pt. asleep. Meal dated, labeled and refrigerated. Snack and fluids at bedside. Subjective Subjective Patient was seen & assessed and interval progress reviewed with nurses. pt complained of nightmares impacting sleep last night and slept through most of the morning, with proposal writer awakening her up late morning for this assessment. She continues to have Ah telling her that she hurt her child. continues to be paranoid , she first stated mother tells her the AH are accurate then later stated mother tell her they are not accurate. She denied HI, has passive SI. She feels Haldol is helpful but weary Abilify is not did not eat breakfast or lunch (asleep instead) marco a for [facility] obtained and faxed Physical Exam Psychiatric Orientation: alert, oriented to person, oriented to place and cooperative Apperance: appropriately dressed Eye Contact: + fair eye contact Motor Behavior: no abnormal motor movements Speech: normal rate/rhythm/volume of speech Affect: + depressed affect, + anxious affect and + constricted affect Mood: + depressed mood and + anxious mood Thought Process: + perseveration (On her belief that she harmed her children) Thought Content: + preoccupation, + paranoid, + delusions, + persecution, + hopelessness, + worthlessness and + guilt Suicidal Thoughts: + reports suicidal thoughts Homicidal Thoughts: denies homicidal thoughts Hallucinations: + auditory hallucinations Cognition: language grossly intact; + recent memory not intact, + remote memory not intact and + attention not intact Insight: + severely impaired insight Judgement: + severely impaired judgement Vital Signs (Past 24 Hours) Last Vital Signs Temp 37 C 12/02/18 06:51 Pulse 88 12/02/18 15:04 Resp 14 12/02/18 15:04 BP 101/76 12/02/18 15:04 Pulse Ox 95 11/30/18 01:39 Results & Data Current Inpatient Medications Current Inpatient Medications: Current Inpatient Medications Acetaminophen (Tylenol) 650 mg PO Q4H PRN PRN Reason: Headache or Minor Fever Stop: 12/30/18 01:26 Al Hydrox/Mg Hydrox/Simethicone (Maalox) 30 ml PO Q4H PRN PRN Reason: GI Upset Stop: 12/30/18 01:26 Albuterol (Ventolin Hfa) 2 puffs INH QID PRN PRN Reason: asthma Stop: 12/30/18 11:43 Aripiprazole (Abilify) 30 mg PO QAM [facility] Stop: 01/01/19 08:59 Last Admin: 12/02/18 10:48 Dose: 30 mg Documented by: Benztropine Mesylate (Cogentin) 1 mg PO TID PRN PRN Reason: EPS Stop: 12/31/18 14:03 Last Admin: 12/01/18 15:04 Dose: 1 mg Documented by: Benztropine Mesylate (Cogentin) 2 mg IM TID PRN PRN Reason: SEVERE EPS Stop: 12/31/18 14:04 Bismuth Subsalicylate (Kaopectate) 15 ml PO PRN PRN PRN Reason: Loose Stool Stop: 12/30/18 01:26 Ferrous Sulfate (Feosol) 325 mg PO BID [facility] Stop: 12/30/18 20:59 Last Admin: 12/02/18 10:49 Dose: 325 mg Documented by: Folic Acid (Folvite) 1 mg PO DAILY [facility] Stop: 12/31/18 08:59 Last Admin: 12/02/18 10:48 Dose: 1 mg Documented by: Gabapentin (Neurontin) 600 mg PO TID [facility] Stop: 12/30/18 08:59 Last Admin: 12/02/18 13:53 Dose: 600 mg Documented by: Haloperidol (Haldol) 5 mg PO TID PRN PRN Reason: agitation/psychosis Stop: 12/31/18 14:02 Last Admin: 12/02/18 13:53 Dose: 5 mg Documented by: Haloperidol Lactate (Haldol) 5 mg IM TID PRN PRN Reason: Anxiety/Agitation Stop: 12/30/18 02:28 Hydroxyzine HCl (Vistaril) 50 mg PO HSZ PRN PRN Reason: Insomnia Stop: 12/30/18 01:26 Last Admin: 11/30/18 01:54 Dose: 50 mg Documented by: Hydroxyzine HCl (Vistaril) 25 mg PO Q4H PRN PRN Reason: Anxiety Stop: 12/30/18 01:26 Lorazepam (Ativan) 2 mg PO TID PRN PRN Reason: Anxiety/Agitation Stop: 12/30/18 02:20 Last Admin: 12/02/18 13:53 Dose: 2 mg Documented by: Lorazepam (Ativan) 2 mg IM BID PRN PRN Reason: Anxiety/Agitation Stop: 12/30/18 02:21 Magnesium Hydroxide (Milk Of Magnesia) 30 ml PO DAILY PRN PRN Reason: Heartburn Stop: 12/30/18 01:26 Methadone HCl (Methadone Hcl) 112 mg PO DAILY [facility] Stop: 12/14/18 13:59 Last Admin: 12/02/18 10:49 Dose: 112 mg Documented by: Mirtazapine (Remeron Solutab) 45 mg PO HS [facility] Stop: 12/30/18 21:59 Last Admin: 12/01/18 21:18 Dose: 45 mg Documented by: Nicotine (Nicoderm Cq) 14 mg TD QAM [facility] Stop: 12/30/18 08:59 Last Admin: 12/02/18 10:49 Dose: 14 mg Documented by: Nicotine Polacrilex (Nicorette 2mg) 1 piece MT UD PRN PRN Reason: Nicotine Withdrawal Stop: 12/30/18 01:26 Non-Formulary Medication (Patient's Own Controlled Med) 1 ea PO QAM [facility] Stop: 12/14/18 13:59 Last Admin: 12/02/18 10:49 Dose: Not Given Documented by: Ondansetron HCl (Zofran Tab) 8 mg PO TID PRN PRN Reason: nausea Stop: 12/30/18 11:43 Pantoprazole Sodium (Protonix) 40 mg PO BID [facility] Stop: 12/30/18 08:59 Last Admin: 12/02/18 10:48 Dose: 40 mg Documented by: Prazosin HCl (Prazosin Hcl) 2 mg PO HS [facility] Stop: 12/30/18 21:59 Last Admin: 12/01/18 21:18 Dose: 2 mg Documented by: Sodium Chloride ([place] Nasal) 1 - 2 sprays NA PRN PRN PRN Reason: Nasal Dryness/Congestion Stop: 12/30/18 01:26 Mental Health & Subst Abuse Tx Therapist Name of Therapist: maybe Opal at [facility]? Marketing Agent Name of Marketing Agent: used to be Chanell Cherry at [facility] but hasn't seen for past few months Post Discharge Appointments Primary Care Physician Name Of Family Doctor: Farhad (says nobody specific) CPT Code CPT Code 83071 [id number] (1) Bipolar disorder Active/Remission status: currently active Current episode severity: severe Psychotic features: with psychotic features
[2018-12-02] MEDS: MIRTAZAPINE SOLTAB 15 MG PO SCH (20:58)
[2018-12-02] MEDS: PRAZOSIN HCL 1 MG CAP PO SCH (20:58)
[2018-12-03] MEDS: FOLIC ACID 1 MG TAB PO SCH (09:29)
[2018-12-03] MEDS: ARIPiprazole 15 MG TAB PO SCH (09:29)
[2018-12-03] MEDS: FERROUS SULFATE 325 MG TAB PO SCH ×2 (09:29→21:19)
[2018-12-03] MEDS: GABAPENTIN 600 MG TAB PO SCH ×3 (09:30→21:20)
[2018-12-03] MEDS: PANTOprazole 40 MG TAB PO SCH ×2 (09:30→21:21)
[2018-12-03] MEDS: NICOTINE 14 MG/24 HR PATCH TD SCH (09:30)
[2018-12-03] MEDS: METHADONE ORAL SOLN 2 MG/ML PO SCH (09:33)
[2018-12-03] MEDS: PATIENT'S OWN CONTROLLED MED PO SCH (09:33)
--- NOTE | 2018-12-03 09:36 | Psychiatric Progress Note ---
Date of Service December 03, 2018 Impression / Recommendations Impression 33-year-old female with a history of bipolar disorder type I and polysubstance abuse (heroin, now on methadone, recent IV methamphetamine, cannabis, and prescription medications and alcohol in the past) who presents with suicidality and predominant psychotic symptoms after she tried to jump out of a second story window at [facility]. She endorses constant auditory hallucinations of voices telling her that she harmed her child, that people are coming to kill her, and that she should kill herself. She is unable to reality test and lacks insight into her psychotic symptoms, believing that she hurt someone and that she should be punished and deserves to . She has been noncompliant with psychiatric treatment, psychotropic medications, case management, and continues to abuse illicit drugs which worsens her condition. 304 inpatient commitment hearing is scheduled for 12/06, with a plan to convert this to an involuntary outpatient commitment at the time of discharge, as she reports that this was helpful in the past to keep her in treatment. We will need to get collateral information as she is a very poor historian and unable to provide reliable information about the past few months. Pt has consistently verbalized desire to return to Haldol decanoate injection. Will reduce aripiprazole to 15mg for tomorrow, and begin scheduled oral doses of haloperidol 5mg TID. If benefitting, can receive haldol decanoate during admission. Inpatient treatment is medically necessary due to the risk for harm to both herself and others if discharged prematurely given the severity of her psychosis and inability to accurately interpret reality, with a suicide attempt by jumping out of a window prior to admission, responding to command auditory hallucinations, and inability to provide for her own basic needs given the severity of her psychiatric symptoms. (1) Suicidal thoughts: 11/30 -patient endorsed suicidal thoughts in the ER, and had attempted to jump out of a second story window prior to presentation. Suicidality appears to be driven by psychosis at this point, with command auditory hallucinations telling her to end her life. -Medically necessary private room due to severity of symptoms and unpredictable, impulsive behavior. -Suicide checks for safety. 12/03 - Pt continuing to report she feels she is "not allowed to be alive" - intense guilt and remorse leading to ongoing SI (2) Bipolar disorder: 11/30 -history of bipolar disorder with frequent psychotic episodes, exacerbated by ongoing substance abuse (cannabis, methamphetamine, possibly others). -Current medications confirmed with outpatient records: Last discharged from our unit on Haldol Decanoate, but switched to aripiprazole by her outpatient psychiatrist in 07/2018 due to reports of sedation and weight gain. Will increase aripiprazole to 15 mg daily, and consider further increase to 30 mg daily if needed. If this is effective, she would benefit from the long-acting injectable Abilify Maintena. If ineffective, could consider short-term use of haloperidol which has been beneficial in the past. -Order fasting lipid profile and glucose for monitoring on an atypical antipsychotic. -Get collateral information from her mother or her outpatient clinicians. -Records reviewed from outpatient psychiatrist, Dr. Pina. She would benefit from a therapist and correctional casework specialist. Consider the need for a 304 involuntary outpatient commitment. -Involve her in groups and therapy when she is able to tolerate them. 12/01 -increase aripiprazole to 30 mg daily for tomorrow. If effective, transition to Maintena. Continue Haldol and Ativan as needed in the meantime. -Fasting glucose 59, cholesterol levels within normal. -Get collateral information as the patient is a very poor historian. -She is willing for re-referral for a blended case management. -File for 304 involuntary commitment, to transition to an involuntary outpatient commitment at the time of discharge. 12/02 maintained treatment plan unchanged 12/03 - Pt continues to verbalize desire to return to haldol decanoate injections - as she does not feel aripiprazole is beneficial - Will order haloperidol 5mg TID scheduled, as receiving 5-10mg daily as available prns; reducing aripiprazole to 15mg tomorrow morning and continuing to taper - If tolerating and improvement is noticeable - can receive decanoate injection on unit - PRN doses of benztropine remain available for any EPS/TD - 304 hearing scheduled fro 12/06 - with plan to eventually convert to 304 outpatient commitment (3) Methamphetamine abuse: 11/30 -UDS positive, likely contributing to insomnia, mood instability, and psychosis. -Recovery protocol. -Coordinate with [facility] and outpatient psychiatrist. -We will review recommendations for inpatient rehab once less psychotic. -Avoid prescribing controlled substances given the severity of her addictions issues. We will discontinue zolpidem. (4) Heroin abuse: 11/30 -methadone dose confirmed with [facility]. Will need to inform them of her methamphetamine and cannabis use, and review plan for ongoing MAT prior to discharge. (5) Cannabis abuse: Likely exacerbating psychotic symptoms. Once patient is less psychotic, will provide education about the risks of psychoactive substance abuse. (6) Hepatitis C: Avoid hepatotoxic agents Risk Factors Assessment Male: No : Yes Health Problems: Yes Mental Health Diagnoses: Yes Substance Use Disorders: Yes Previous Attempt: Yes Family History of Suicide: Yes Previous Psychiatric Hospitalization: Yes Smoker: Yes Protective Factors Assessment Zoroastrianism Beliefs: No : No Responsible for Young Children: No (Lost custody of her children, has not seen them in months.) Employed: Yes ([employer]) Stable Relationships: No Good Rapport with Provider: No Interval History Identifying Information ELZBIETA CARTAGENA is a 33-year-old F who currently lives in [place], has a history of bipolar disorder with psychosis and polysubstance abuse (heroin, opiate pain medications, benzodiazepines, cannabis, methamphetamine), and was admitted on 11/30/18 00:43 on a 201 voluntary commitment for psychosis and command auditory hallucinations telling her to kill herself, after she removed a screen and attempted to jump out of a second story window at [facility]. Chief Complaint "I'm not well. I just have this overwhelming feeling I'm not allowed to be alive." Review of Systems Notes Constitutional: denied Cardiovascular: denied Respiratory: denied Gastrointestinal: denied Neurological: denied Psychiatric: denies symptoms other than stated above Total of at least 10 systems reviewed, pertinent positives as above and in HPI. Sleep Information Total Hours of Sleep: 8 Sleep Comments: 2 of the hours was from evening shift. Meal Information Percent Meal Consumed - Breakfast: 0 Percent Meal Consumed - Lunch: 0 Percent Meal Consumed - Dinner: 100 Nutrition Comment: pt. asleep. Meal dated, labeled and refrigerated. Snack and fluids at bedside. Subjective Subjective Patient was seen & assessed and interval progress reviewed with Treatment Team. Staff reports the patient has not shown much improvement in paranoia and persecutory delusions. She has not yet been able to tolerate group programming. 304 inpatient commitment hearing is scheduled for 12/06 at 0930. Pt was seen today to assess progress since admission. Pt states she is "not well", continuing to believe that she is being persecuted for harming her children. Pt states, "I keep having this belief I'm not allowed to be alive - like a feeling and a fear." Pt states that the voices have told her that she seriously harmed her son, "hurt and raped him" which is leading to ongoing SI. Pt is not yet able to reality test these beliefs, despite her awareness that she does not have custody of her children and that she likely did not perform these acts. Pt states, "I've been deteriorating mentally, over and over again, for the past year. I need help, maybe the [facility]." Pt continues to request to return to Haldol decanoate, as she does not feel aripiprazole has been effective for her. She continues to receive several prns of haloperidol throughout the day, and is agreeable to having these doses scheduled while aripiprazole is tapered. Per patient's recollection, she is not aware of any side effects from the decanoate aside from "lumps at the injection site" and believes she benefitted significantly from the medication. Pt questions her dose of methadone - as she states, "they told me I would have to be detoxed or I can't go home. I would have to go to group home." It is unclear if this belief is also part of her current delusions as well. Pt denied other needs or concerns presently. Physical Exam Psychiatric Orientation: alert, oriented x 3 and cooperative Apperance: appropriately dressed (casually in t-shirt and scrub pants) and + disheveled Eye Contact: + poor eye contact Motor Behavior: no abnormal motor movements (observed while sitting upright on bed) Speech: normal rate/rhythm/volume of speech Affect: + depressed affect and + tearful affect Mood: + depressed mood "I'm not well" and "deteriorating mentally, over and over again" Thought Process: goal directed thought process Thought Content: + paranoid, + delusions, + persecution, + worthlessness and + guilt Suicidal Thoughts: + reports suicidal thoughts Homicidal Thoughts: denies homicidal thoughts Continues to believe she seriously harmed one of her children; though does not understand why she would have done this Hallucinations: + auditory hallucinations Cognition: attention grossly intact and language grossly intact Insight: + impaired insight Judgement: + impaired judgement Vital Signs (Past 24 Hours) Last Vital Signs Temp 36.7 C 12/03/18 06:00 Pulse 71 12/03/18 06:00 Resp 18 12/03/18 06:00 BP 93/69 L 12/03/18 06:00 Pulse Ox 95 11/30/18 01:39 Results & Data Current Inpatient Medications Current Inpatient Medications: Current Inpatient Medications Acetaminophen (Tylenol) 650 mg PO Q4H PRN PRN Reason: Headache or Minor Fever Stop: 12/30/18 01:26 Al Hydrox/Mg Hydrox/Simethicone (Maalox) 30 ml PO Q4H PRN PRN Reason: GI Upset Stop: 12/30/18 01:26 Albuterol (Ventolin Hfa) 2 puffs INH QID PRN PRN Reason: asthma Stop: 12/30/18 11:43 Aripiprazole (Abilify) 30 mg PO QAM [facility] Stop: 01/01/19 08:59 Last Admin: 12/02/18 10:48 Dose: 30 mg Documented by: Benztropine Mesylate (Cogentin) 1 mg PO TID PRN PRN Reason: EPS Stop: 12/31/18 14:03 Last Admin: 12/01/18 15:04 Dose: 1 mg Documented by: Benztropine Mesylate (Cogentin) 2 mg IM TID PRN PRN Reason: SEVERE EPS Stop: 12/31/18 14:04 Bismuth Subsalicylate (Kaopectate) 15 ml PO PRN PRN PRN Reason: Loose Stool Stop: 12/30/18 01:26 Ferrous Sulfate (Feosol) 325 mg PO BID [facility] Stop: 12/30/18 20:59 Last Admin: 12/02/18 20:58 Dose: 325 mg Documented by: Folic Acid (Folvite) 1 mg PO DAILY [facility] Stop: 12/31/18 08:59 Last Admin: 12/02/18 10:48 Dose: 1 mg Documented by: Gabapentin (Neurontin) 600 mg PO TID [facility] Stop: 12/30/18 08:59 Last Admin: 12/02/18 20:58 Dose: 600 mg Documented by: Haloperidol (Haldol) 5 mg PO TID PRN PRN Reason: agitation/psychosis Stop: 12/31/18 14:02 Last Admin: 12/02/18 19:16 Dose: 5 mg Documented by: Haloperidol Lactate (Haldol) 5 mg IM TID PRN PRN Reason: Anxiety/Agitation Stop: 12/30/18 02:28 Hydroxyzine HCl (Vistaril) 50 mg PO HSZ PRN PRN Reason: Insomnia Stop: 12/30/18 01:26 Last Admin: 11/30/18 01:54 Dose: 50 mg Documented by: Hydroxyzine HCl (Vistaril) 25 mg PO Q4H PRN PRN Reason: Anxiety Stop: 12/30/18 01:26 Lorazepam (Ativan) 2 mg PO TID PRN PRN Reason: Anxiety/Agitation Stop: 12/30/18 02:20 Last Admin: 12/02/18 19:16 Dose: 2 mg Documented by: Lorazepam (Ativan) 2 mg IM BID PRN PRN Reason: Anxiety/Agitation Stop: 12/30/18 02:21 Magnesium Hydroxide (Milk Of Magnesia) 30 ml PO DAILY PRN PRN Reason: Heartburn Stop: 12/30/18 01:26 Methadone HCl (Methadone Hcl) 112 mg PO DAILY [facility] Stop: 12/14/18 13:59 Last Admin: 12/02/18 10:49 Dose: 112 mg Documented by: Mirtazapine (Remeron Solutab) 45 mg PO HS [facility] Stop: 12/30/18 21:59 Last Admin: 12/02/18 20:58 Dose: 45 mg Documented by: Nicotine (Nicoderm Cq) 14 mg TD QAM [facility] Stop: 12/30/18 08:59 Last Admin: 12/02/18 10:49 Dose: 14 mg Documented by: Nicotine Polacrilex (Nicorette 2mg) 1 piece MT UD PRN PRN Reason: Nicotine Withdrawal Stop: 12/30/18 01:26 Non-Formulary Medication (Patient's Own Controlled Med) 1 ea PO QAM [facility] Stop: 12/14/18 13:59 Last Admin: 12/02/18 10:49 Dose: Not Given Documented by: Ondansetron HCl (Zofran Tab) 8 mg PO TID PRN PRN Reason: nausea Stop: 12/30/18 11:43 Pantoprazole Sodium (Protonix) 40 mg PO BID [facility] Stop: 12/30/18 08:59 Last Admin: 12/02/18 20:58 Dose: 40 mg Documented by: Prazosin HCl (Prazosin Hcl) 2 mg PO HS [facility] Stop: 12/30/18 21:59 Last Admin: 12/02/18 20:58 Dose: 2 mg Documented by: Sodium Chloride ([place] Nasal) 1 - 2 sprays NA PRN PRN PRN Reason: Nasal Dryness/Congestion Stop: 12/30/18 01:26 Mental Health & Subst Abuse Tx Therapist Name of Therapist: maybe Op[facility]? Ammunition Officer Name of Ammunition Officer: used to be Chanell Cherry at [facility] but hasn't seen for past few months Post Discharge Appointments Primary Care Physician Name Of Family Doctor: Farhad (says nobody specific) CPT Code CPT Code 36086 (1) Bipolar disorder Active/Remission status: currently active Current episode severity: severe Psychotic features: with psychotic features
[2018-12-03] MEDS: HALOPERIDOL 5 MG TAB PO PRN (09:43)
[2018-12-03] MEDS: LORazepam 1 MG TAB PO PRN ×2 (09:43→16:07)
[2018-12-03 11:21] LABS: Amphetamine Urine, Confirm 7710 NG/ML (CUTOFF=250); Marijuana Quant, GCMS Urine 120 NG/ML (CUTOFF=5); Methadone, Ur Metabolite >40000 NG/ML (CUTOFF=100); Methamphetamine, Ur Confirm >25000 NG/ML (CUTOFF=250)
[2018-12-03] MEDS: HALOPERIDOL 5 MG TAB PO SCH ×2 (13:45→21:32)
[2018-12-03] MEDS ORDERED: HALOPERIDOL 5 MG TAB PO PRN (15:50)
[2018-12-03] MEDS: MIRTAZAPINE SOLTAB 15 MG PO SCH (21:19)
[2018-12-03] MEDS: PRAZOSIN HCL 1 MG CAP PO SCH (21:20)
[2018-12-04] MEDS ORDERED: ARIPiprazole 15 MG TAB PO SCH (09:00)
[2018-12-04] MEDS: FOLIC ACID 1 MG TAB PO SCH (10:28)
[2018-12-04] MEDS: FERROUS SULFATE 325 MG TAB PO SCH ×2 (10:28→21:57)
[2018-12-04] MEDS: HALOPERIDOL 5 MG TAB PO SCH ×3 (10:29→22:09)
[2018-12-04] MEDS: PANTOprazole 40 MG TAB PO SCH ×2 (10:29→21:57)
[2018-12-04] MEDS: GABAPENTIN 600 MG TAB PO SCH ×3 (10:29→22:10)
[2018-12-04] MEDS: METHADONE ORAL SOLN 2 MG/ML PO SCH (10:30)
[2018-12-04] MEDS: PATIENT'S OWN CONTROLLED MED PO SCH (10:32)
[2018-12-04] MEDS: NICOTINE 14 MG/24 HR PATCH TD SCH (10:47)
[2018-12-04] MEDS: LORazepam 1 MG TAB PO PRN (11:52)
--- NOTE | 2018-12-04 12:28 | Psychiatric Progress Note ---
Date of Service December 04, 2018 Impression / Recommendations Impression 33-year-old female with a history of bipolar disorder type I and polysubstance abuse (heroin, now on methadone, recent IV methamphetamine, cannabis, and prescription medications and alcohol in the past) who presents with suicidality and predominant psychotic symptoms after she tried to jump out of a second story window at [facility]. She endorses constant auditory hallucinations of voices telling her that she harmed her child, that people are coming to kill her, and that she should kill herself. She is unable to reality test and lacks insight into her psychotic symptoms, believing that she hurt someone and that she should be punished and deserves to . She has been noncompliant with psychiatric treatment, psychotropic medications, case management, and continues to abuse illicit drugs which worsens her condition. 304 inpatient commitment hearing is scheduled for 12/06, with a plan to convert this to an involuntary outpatient commitment at the time of discharge, as she reports that this was helpful in the past to keep her in treatment. (1) Suicidal thoughts: 11/30 -patient endorsed suicidal thoughts in the ER, and had attempted to jump out of a second story window prior to presentation. Suicidality appears to be driven by psychosis at this point, with command auditory hallucinations telling her to end her life. -Medically necessary private room due to severity of symptoms and unpredictable, impulsive behavior. -Suicide checks for safety. 12/03 - Pt continuing to report she feels she is "not allowed to be alive" - intense guilt and remorse leading to ongoing SI (2) Bipolar disorder: 11/30 -history of bipolar disorder with frequent psychotic episodes, exacerbated by ongoing substance abuse (cannabis, methamphetamine, possibly others). -Current medications confirmed with outpatient records: Last discharged from our unit on Haldol Decanoate, but switched to aripiprazole by her outpatient psychiatrist in 07/2018 due to reports of sedation and weight gain. Will increase aripiprazole to 15 mg daily, and consider further increase to 30 mg daily if needed. If this is effective, she would benefit from the long-acting injectable Abilify Maintena. If ineffective, could consider short-term use of haloperidol which has been beneficial in the past. -Order fasting lipid profile and glucose for monitoring on an atypical antipsychotic. -Get collateral information from her mother or her outpatient clinicians. -Records reviewed from outpatient psychiatrist, Dr. Pina. She would benefit from a therapist and director case. Consider the need for a 304 involuntary outpatient commitment. -Involve her in groups and therapy when she is able to tolerate them. 12/01 -increase aripiprazole to 30 mg daily for tomorrow. If effective, transition to Maintena. Continue Haldol and Ativan as needed in the meantime. -Fasting glucose 59, cholesterol levels within normal. -Get collateral information as the patient is a very poor historian. -She is willing for re-referral for a blended case management. -File for 304 involuntary commitment, to transition to an involuntary outpatient commitment at the time of discharge. 12/02 maintained treatment plan unchanged 12/03 - Pt continues to verbalize desire to return to haldol decanoate injections - as she does not feel aripiprazole is beneficial - Will order haloperidol 5mg TID scheduled, as receiving 5-10mg daily as available prns; reducing aripiprazole to 15mg tomorrow morning and continuing to taper - If tolerating and improvement is noticeable - can receive decanoate injection on unit - PRN doses of benztropine remain available for any EPS/TD - 304 hearing scheduled fro 12/06 - with plan to eventually convert to 304 outpatient commitment 12/04 -appears sedated with restart Haldol, speed up Abilify taper to 5 mg BID, reviewed med list and receiving BID Ativan 2 mg prn and on methadone. Will begin benzo taper to 1 mg and monitor. Hold it and Haldol for excessive sedation discussed with staff. (3) Methamphetamine abuse: 11/30 -UDS positive, likely contributing to insomnia, mood instability, and psychosis. -Recovery protocol. -Coordinate with [facility] and outpatient psychiatrist. -We will review recommendations for inpatient rehab once less psychotic. -Avoid prescribing controlled substances given the severity of her addictions issues. We will discontinue zolpidem. (4) Heroin abuse: 11/30 -methadone dose confirmed with [facility]. Will need to inform them of her methamphetamine and cannabis use, and review plan for ongoing MAT prior to discharge. (5) Cannabis abuse: Likely exacerbating psychotic symptoms. Once patient is less psychotic, will provide education about the risks of psychoactive substance abuse. (6) Hepatitis C: Avoid hepatotoxic agents Risk Factors Assessment Male: No : Yes Health Problems: Yes Mental Health Diagnoses: Yes Substance Use Disorders: Yes Previous Attempt: Yes Family History of Suicide: Yes Previous Psychiatric Hospitalization: Yes Smoker: Yes Protective Factors Assessment Yazdanism Beliefs: No : No Responsible for Young Children: No (Lost custody of her children, has not seen them in months.) Employed: Yes ([employer]) Stable Relationships: No Good Rapport with Provider: No Interval History Identifying Information ELZBIETA CARTAGENA is a 33-year-old F who currently lives in [place], has a history of bipolar disorder with psychosis and polysubstance abuse (heroin, opiate pain medications, benzodiazepines, cannabis, methamphetamine), and was admitted on 11/30/18 00:43 on a 201 voluntary commitment for psychosis and command auditory hallucinations telling her to kill herself, after she removed a screen and attempted to jump out of a second story window at [facility]. Chief Complaint "my nightmares are bad". Review of Systems Sleep Information Total Hours of Sleep: 12.5 Sleep Comments: pt appeared to sleep 5.5 hrs during evening shift. pt on q-15 minute checks Meal Information Percent Meal Consumed - Breakfast: 0 Percent Meal Consumed - Lunch: 15 Percent Meal Consumed - Dinner: 90 Nutrition Comment: pt. asleep. Meal dated, labeled and refrigerated. Snack and fluids at bedside. Subjective Subjective Patient was seen & assessed and interval progress reviewed with Nursing and psychiatric social worker supervisor. On talking with her clear that nightmares are referring to inability to tell reality from sleep. Remains disorganized, appears sedated but still asks staff for prns. Did not eat or drink well yesterday due to delusions as she's convinced "they'll gut me". Continues to believes that she's harmed someone and her family is lying to her to be nice. Physical Exam Vital Signs (Past 24 Hours) Last Vital Signs Temp 36.7 C 12/04/18 06:51 Pulse 99 H 12/04/18 06:52 Resp 18 12/04/18 06:51 BP 91/58 L 12/04/18 06:52 Pulse Ox 95 11/30/18 01:39 Results & Data Current Inpatient Medications Current Inpatient Medications: Current Inpatient Medications Acetaminophen (Tylenol) 650 mg PO Q4H PRN PRN Reason: Headache or Minor Fever Stop: 12/30/18 01:26 Al Hydrox/Mg Hydrox/Simethicone (Maalox) 30 ml PO Q4H PRN PRN Reason: GI Upset Stop: 12/30/18 01:26 Albuterol (Ventolin Hfa) 2 puffs INH QID PRN PRN Reason: asthma Stop: 12/30/18 11:43 Benztropine Mesylate (Cogentin) 1 mg PO TID PRN PRN Reason: EPS Stop: 12/31/18 14:03 Last Admin: 12/01/18 15:04 Dose: 1 mg Documented by: Benztropine Mesylate (Cogentin) 2 mg IM TID PRN PRN Reason: SEVERE EPS Stop: 12/31/18 14:04 Bismuth Subsalicylate (Kaopectate) 15 ml PO PRN PRN PRN Reason: Loose Stool Stop: 12/30/18 01:26 Ferrous Sulfate (Feosol) 325 mg PO BID [facility] Stop: 12/30/18 20:59 Last Admin: 12/04/18 10:28 Dose: 325 mg Documented by: Folic Acid (Folvite) 1 mg PO DAILY [facility] Stop: 12/31/18 08:59 Last Admin: 12/04/18 10:28 Dose: 1 mg Documented by: Gabapentin (Neurontin) 600 mg PO TID [facility] Stop: 12/30/18 08:59 Last Admin: 12/04/18 10:29 Dose: 600 mg Documented by: Haloperidol (Haldol) 5 mg PO TID [facility] Stop: 01/02/19 13:59 Last Admin: 12/04/18 10:29 Dose: 5 mg Documented by: Haloperidol (Haldol) 5 mg PO BID PRN PRN Reason: psychosis/anxiety Stop: 01/02/19 15:49 Last Admin: 12/03/18 16:08 Dose: 5 mg Documented by: Haloperidol Lactate (Haldol) 5 mg IM TID PRN PRN Reason: Anxiety/Agitation Stop: 12/30/18 02:28 Hydroxyzine HCl (Vistaril) 50 mg PO HSZ PRN PRN Reason: Insomnia Stop: 12/30/18 01:26 Last Admin: 11/30/18 01:54 Dose: 50 mg Documented by: Hydroxyzine HCl (Vistaril) 25 mg PO Q4H PRN PRN Reason: Anxiety Stop: 12/30/18 01:26 Lorazepam (Ativan) 2 mg PO TID PRN PRN Reason: Anxiety/Agitation Stop: 12/30/18 02:20 Last Admin: 12/04/18 11:52 Dose: 2 mg Documented by: Lorazepam (Ativan) 2 mg IM BID PRN PRN Reason: Anxiety/Agitation Stop: 12/30/18 02:21 Magnesium Hydroxide (Milk Of Magnesia) 30 ml PO DAILY PRN PRN Reason: Heartburn Stop: 12/30/18 01:26 Methadone HCl (Methadone Hcl) 112 mg PO DAILY [facility] Stop: 12/14/18 13:59 Last Admin: 12/04/18 10:30 Dose: 112 mg Documented by: Mirtazapine (Remeron Solutab) 45 mg PO HS [facility] Stop: 12/30/18 21:59 Last Admin: 12/03/18 21:19 Dose: 45 mg Documented by: Nicotine (Nicoderm Cq) 14 mg TD QAM [facility] Stop: 12/30/18 08:59 Last Admin: 12/04/18 10:47 Dose: 14 mg Documented by: Nicotine Polacrilex (Nicorette 2mg) 1 piece MT UD PRN PRN Reason: Nicotine Withdrawal Stop: 12/30/18 01:26 Non-Formulary Medication (Patient's Own Controlled Med) 1 ea PO QAM [facility] Stop: 12/14/18 13:59 Last Admin: 12/04/18 10:32 Dose: Not Given Documented by: Ondansetron HCl (Zofran Tab) 8 mg PO TID PRN PRN Reason: nausea Stop: 12/30/18 11:43 Pantoprazole Sodium (Protonix) 40 mg PO BID [facility] Stop: 12/30/18 08:59 Last Admin: 12/04/18 10:29 Dose: 40 mg Documented by: Prazosin HCl (Prazosin Hcl) 2 mg PO HS [facility] Stop: 12/30/18 21:59 Last Admin: 12/03/18 21:20 Dose: 2 mg Documented by: Sodium Chloride ([place] Nasal) 1 - 2 sprays NA PRN PRN PRN Reason: Nasal Dryness/Congestion Stop: 12/30/18 01:26 Mental Health & Subst Abuse Tx Therapist Name of Therapist: maybe Opal at [facility]? Family Services Assistant Name of Family Services Assistant: used to be Chanell Green at [facility] but hasn't seen for past few months Post Discharge Appointments Primary Care Physician Name Of Family Doctor: Farhad (says nobody specific) CPT Code CPT Code 61520 [id number] (1) Bipolar disorder Active/Remission status: currently active Current episode severity: severe Psychotic features: with psychotic features
[2018-12-04] MEDS ORDERED: LORazepam 1 MG TAB PO PRN (12:41)
[2018-12-04] MEDS: PRAZOSIN HCL 1 MG CAP PO SCH (21:57)
[2018-12-04] MEDS: MIRTAZAPINE SOLTAB 15 MG PO SCH (22:17)
[2018-12-05] MEDS ORDERED: ARIPiprazole 5 MG TAB PO SCH (09:00)
[2018-12-05] MEDS: GABAPENTIN 600 MG TAB PO SCH ×3 (10:24→21:45)
[2018-12-05] MEDS: METHADONE ORAL SOLN 2 MG/ML PO SCH (10:24)
[2018-12-05] MEDS: FOLIC ACID 1 MG TAB PO SCH (10:25)
[2018-12-05] MEDS: HALOPERIDOL 5 MG TAB PO SCH ×3 (10:25→22:39)
[2018-12-05] MEDS: LORazepam 1 MG TAB PO PRN (10:25)
[2018-12-05] MEDS: FERROUS SULFATE 325 MG TAB PO SCH ×2 (10:25→21:45)
[2018-12-05] MEDS: PANTOprazole 40 MG TAB PO SCH ×2 (10:26→21:45)
[2018-12-05] MEDS: NICOTINE 14 MG/24 HR PATCH TD SCH (10:45)
[2018-12-05] MEDS: PATIENT'S OWN CONTROLLED MED PO SCH (10:48)
--- NOTE | 2018-12-05 11:47 | Psychiatric Progress Note ---
Date of Service December 05, 2018 Impression / Recommendations Impression 33-year-old female with a history of bipolar disorder type I and polysubstance abuse (heroin, now on methadone, recent IV methamphetamine, cannabis, and prescription medications and alcohol in the past) who presents with suicidality and predominant psychotic symptoms after she tried to jump out of a second story window at [facility]. She endorses constant auditory hallucinations of voices telling her that she harmed her child, that people are coming to kill her, and that she should kill herself. She is unable to reality test and lacks insight into her psychotic symptoms, believing that she hurt someone and that she should be punished and deserves to . She has been noncompliant with psychiatric treatment, psychotropic medications, case management, and continues to abuse illicit drugs which worsens her condition. 304 inpatient commitment hearing is scheduled for 12/06, with a plan to convert this to an involuntary outpatient commitment at the time of discharge, as she reports that this was helpful in the past to keep her in treatment. (1) Suicidal thoughts: 11/30 -patient endorsed suicidal thoughts in the ER, and had attempted to jump out of a second story window prior to presentation. Suicidality appears to be driven by psychosis at this point, with command auditory hallucinations telling her to end her life. -Medically necessary private room due to severity of symptoms and unpredictable, impulsive behavior. -Suicide checks for safety. 12/03 - Pt continuing to report she feels she is "not allowed to be alive" - intense guilt and remorse leading to ongoing SI (2) Bipolar disorder: 11/30 -history of bipolar disorder with frequent psychotic episodes, exacerbated by ongoing substance abuse (cannabis, methamphetamine, possibly others). -Current medications confirmed with outpatient records: Last discharged from our unit on Haldol Decanoate, but switched to aripiprazole by her outpatient psychiatrist in 07/2018 due to reports of sedation and weight gain. Will increase aripiprazole to 15 mg daily, and consider further increase to 30 mg daily if needed. If this is effective, she would benefit from the long-acting injectable Abilify Maintena. If ineffective, could consider short-term use of haloperidol which has been beneficial in the past. -Order fasting lipid profile and glucose for monitoring on an atypical antipsychotic. -Get collateral information from her mother or her outpatient clinicians. -Records reviewed from outpatient psychiatrist, Dr. Pina. She would benefit from a therapist and registered nurse hh case manager. Consider the need for a 304 involuntary outpatient commitment. -Involve her in groups and therapy when she is able to tolerate them. 12/01 -increase aripiprazole to 30 mg daily for tomorrow. If effective, transition to [facility]. Continue Haldol and Ativan as needed in the meantime. -Fasting glucose 59, cholesterol levels within normal. -Get collateral information as the patient is a very poor historian. -She is willing for re-referral for a blended case management. -File for 304 involuntary commitment, to transition to an involuntary outpatient commitment at the time of discharge. 12/02 maintained treatment plan unchanged 12/03 - Pt continues to verbalize desire to return to haldol decanoate injections - as she does not feel aripiprazole is beneficial - Will order haloperidol 5mg TID scheduled, as receiving 5-10mg daily as available prns; reducing aripiprazole to 15mg tomorrow morning and continuing to taper - If tolerating and improvement is noticeable - can receive decanoate injection on unit - PRN doses of benztropine remain available for any EPS/TD - 304 hearing scheduled fro 12/06 - with plan to eventually convert to 304 outpatient commitment 12/04 -appears sedated with restart Haldol, speed up Abilify taper to 5 mg BID, reviewed med list and receiving BID Ativan 2 mg prn and on methadone. Will begin benzo taper to 1 mg and monitor. Hold it and Haldol for excessive sedation discussed with staff. 12/05 --resume Haldol at 5 mg BID, continue decrease frequency of Ativan dosing. Stop Abilify given concerns about QTc and medical necessity of Haldol. Repeat EKG this pm. Encourage fluids. (3) Methamphetamine abuse: 11/30 -UDS positive, likely contributing to insomnia, mood instability, and psychosis. -Recovery protocol. -Coordinate with [facility] and outpatient psychiatrist. -We will review recommendations for inpatient rehab once less psychotic. -Avoid prescribing controlled substances given the severity of her addictions issues. We will discontinue zolpidem. (4) Heroin abuse: 11/30 -methadone dose confirmed with [facility]. Will need to inform them of her methamphetamine and cannabis use, and review plan for ongoing MAT prior to discharge. (5) Cannabis abuse: Likely exacerbating psychotic symptoms. Once patient is less psychotic, will provide education about the risks of psychoactive substance abuse. (6) Hepatitis C: Avoid hepatotoxic agents Risk Factors Assessment Male: No : Yes Health Problems: Yes Mental Health Diagnoses: Yes Substance Use Disorders: Yes Previous Attempt: Yes Family History of Suicide: Yes Previous Psychiatric Hospitalization: Yes Smoker: Yes Protective Factors Assessment Protestant Beliefs: No : No Responsible for Young Children: No (Lost custody of her children, has not seen them in months.) Employed: Yes ([employer]) Stable Relationships: No Good Rapport with Provider: No Interval History Chief Complaint "Please don't take my medicine, I hear things". Review of Systems Sleep Information Total Hours of Sleep: 11.75 Sleep Comments: pt appeared to be asleep for 4.75 hrs during evening shift. pt on q-15 minute checks Meal Information Percent Meal Consumed - Breakfast: 50 Percent Meal Consumed - Lunch: 80 Percent Meal Consumed - Dinner: 25 Nutrition Comment: pt. asleep. Meal dated, labeled and refrigerated. Snack and fluids at bedside. Subjective Subjective Patient was seen & assessed and interval progress reviewed with nursing and therapist. Jade got increasingly sedated yesterday, even after the Ativan dose was decreased and hs Haldol was held. She was placed on falls precautions as she appeared unsteady and kept knocking over drinks in her room. She continues with the same delusions and is quite disorganized, unable to tell reality from dreams, particularly given "they're talking". EKG was obtained, QTc 490 but overall unchanged from previous per read. A bit hypotensive early this am with compensatory tachy. Currently she is able to ambulate to my office unassisted. She is requesting to resume Haldol following discussion as able. Physical Exam Psychiatric Orientation: alert and cooperative Apperance: + disheveled Eye Contact: + poor eye contact Motor Behavior: no abnormal motor movements and + psychomotor retardation non-spontaneous Affect: + blunted affect Mood: + anxious mood Thought Process: + tangential thought process Thought Content: + delusions Suicidal Thoughts: denies suicidal thoughts Homicidal Thoughts: denies homicidal thoughts Hallucinations: + auditory hallucinations; no visual hallucinations Cognition: language grossly intact; + attention not intact Estimated Intelligence: consistent with education level Insight: + poor insight Judgement: + poor judgement Vital Signs (Past 24 Hours) Last Vital Signs Temp 36.8 C 12/05/18 06:54 Pulse 97 H 12/05/18 06:55 Resp 16 12/05/18 06:54 BP 83/56 L 12/05/18 06:55 Pulse Ox 95 11/30/18 01:39 Results & Data Current Inpatient Medications Current Inpatient Medications: Current Inpatient Medications Acetaminophen (Tylenol) 650 mg PO Q4H PRN PRN Reason: Headache or Minor Fever Stop: 12/30/18 01:26 Al Hydrox/Mg Hydrox/Simethicone (Maalox) 30 ml PO Q4H PRN PRN Reason: GI Upset Stop: 12/30/18 01:26 Albuterol (Ventolin Hfa) 2 puffs INH QID PRN PRN Reason: asthma Stop: 12/30/18 11:43 Aripiprazole (Abilify) 5 mg PO QAM [facility] Stop: 12/06/18 09:01 Last Admin: 12/05/18 10:26 Dose: 5 mg Documented by: Benztropine Mesylate (Cogentin) 1 mg PO TID PRN PRN Reason: EPS Stop: 12/31/18 14:03 Last Admin: 12/01/18 15:04 Dose: 1 mg Documented by: Benztropine Mesylate (Cogentin) 2 mg IM TID PRN PRN Reason: SEVERE EPS Stop: 12/31/18 14:04 Bismuth Subsalicylate (Kaopectate) 15 ml PO PRN PRN PRN Reason: Loose Stool Stop: 12/30/18 01:26 Ferrous Sulfate (Feosol) 325 mg PO BID [facility] Stop: 12/30/18 20:59 Last Admin: 12/05/18 10:25 Dose: 325 mg Documented by: Folic Acid (Folvite) 1 mg PO DAILY [facility] Stop: 12/31/18 08:59 Last Admin: 12/05/18 10:25 Dose: 1 mg Documented by: Gabapentin (Neurontin) 600 mg PO TID [facility] Stop: 12/30/18 08:59 Last Admin: 12/05/18 10:24 Dose: 600 mg Documented by: Haloperidol (Haldol) 5 mg PO BID [facility] Stop: 01/04/19 20:59 Lorazepam (Ativan) 1 mg PO BID PRN PRN Reason: Anxiety/Agitation Stop: 01/03/19 12:40 Lorazepam (Ativan) 2 mg IM BID PRN PRN Reason: Anxiety/Agitation Stop: 12/30/18 02:21 Magnesium Hydroxide (Milk Of Magnesia) 30 ml PO DAILY PRN PRN Reason: Heartburn Stop: 12/30/18 01:26 Methadone HCl (Methadone Hcl) 112 mg PO DAILY [facility] Stop: 12/14/18 13:59 Last Admin: 12/05/18 10:24 Dose: 112 mg Documented by: Mirtazapine (Remeron Solutab) 45 mg PO HS [facility] Stop: 12/30/18 21:59 Last Admin: 12/04/18 22:17 Dose: 45 mg Documented by: Nicotine (Nicoderm Cq) 14 mg TD QAM [facility] Stop: 12/30/18 08:59 Last Admin: 12/05/18 10:45 Dose: 14 mg Documented by: Nicotine Polacrilex (Nicorette 2mg) 1 piece MT UD PRN PRN Reason: Nicotine Withdrawal Stop: 12/30/18 01:26 Non-Formulary Medication (Patient's Own Controlled Med) 1 ea PO QAM [facility] Stop: 12/14/18 13:59 Last Admin: 12/05/18 10:48 Dose: Not Given Documented by: Pantoprazole Sodium (Protonix) 40 mg PO BID [facility] Stop: 12/30/18 08:59 Last Admin: 12/05/18 10:26 Dose: 40 mg Documented by: Prazosin HCl (Prazosin Hcl) 2 mg PO HS [facility] Stop: 12/30/18 21:59 Last Admin: 12/04/18 21:57 Dose: 2 mg Documented by: Sodium Chloride ([place] Nasal) 1 - 2 sprays NA PRN PRN PRN Reason: Nasal Dryness/Congestion Stop: 12/30/18 01:26 Mental Health & Subst Abuse Tx Psychiatrist Name of Psychiatrist: [place] Psychiatrist's Psychiatric Appointment Comment: [address], [place] [address] Therapist Name of Therapist: [facility] Therapist's Therapy Appointment Comment: [address] [facility], [place] [id number] Dumpman Name of Dumpman: ANITA Gomez Phone Number for Dumpman: [phone] Case Management Appointment Comment: [address], [address], [place] [address] Post Discharge Appointments Primary Care Physician Name Of Family Doctor: [facility] - Dr. Rin Blue [facility] Time of Appointment with PCP: Follow up as needed. Provider Appointment Comment: [address] [place] [address] Specialist Name of Specialist: [place] [facility] Phone Number for Specialist: Specialty Appointment Comment: [address], [place] [address] Contact Information Discharge Discharge Address: [address] [place] [address] CPT Code CPT Code 93936 (1) Bipolar disorder Active/Remission status: currently active Current episode severity: severe Psychotic features: with psychotic features
[2018-12-05] MEDS: MIRTAZAPINE SOLTAB 15 MG PO SCH (21:46)
[2018-12-05] MEDS: PRAZOSIN HCL 1 MG CAP PO SCH (21:46)
--- NOTE | 2018-12-06 08:41 | Psychiatric Progress Note ---
Date of Service December 06, 2018 Impression / Recommendations Impression 33-year-old female with a history of bipolar disorder type I and polysubstance abuse (heroin, now on methadone, recent IV methamphetamine, cannabis, and prescription medications and alcohol in the past) who presents with suicidality and predominant psychotic symptoms after she tried to jump out of a second story window at [facility]. She endorses constant auditory hallucinations of voices telling her that she harmed her child, that people are coming to kill her, and that she should kill herself. She is unable to reality test and lacks insight into her psychotic symptoms, believing that she hurt someone and that she should be punished and deserves to . She has been noncompliant with psychiatric treatment, psychotropic medications, case management, and continues to abuse illicit drugs which worsens her condition. 304 inpatient commitment hearing was held today, with a plan to convert this to an involuntary outpatient commitment at the time of discharge, as she reports that this was helpful in the past to keep her in treatment. (1) Suicidal thoughts: 11/30 -patient endorsed suicidal thoughts in the ER, and had attempted to jump out of a second story window prior to presentation. Suicidality appears to be driven by psychosis at this point, with command auditory hallucinations telling her to end her life. -Medically necessary private room due to severity of symptoms and unpredictable, impulsive behavior. -Suicide checks for safety. 12/03 - Pt continuing to report she feels she is "not allowed to be alive" - intense guilt and remorse leading to ongoing SI. (2) Bipolar disorder: 11/30 -history of bipolar disorder with frequent psychotic episodes, exacerbated by ongoing substance abuse (cannabis, methamphetamine, possibly others). -Current medications confirmed with outpatient records: Last discharged from our unit on Haldol Decanoate, but switched to aripiprazole by her outpatient psychiatrist in 07/2018 due to reports of sedation and weight gain. Will increase aripiprazole to 15 mg daily, and consider further increase to 30 mg daily if needed. If this is effective, she would benefit from the long-acting injectable Abilify Maintena. If ineffective, could consider short-term use of haloperidol which has been beneficial in the past. -Order fasting lipid profile and glucose for monitoring on an atypical antipsychotic. -Get collateral information from her mother or her outpatient clinicians. -Records reviewed from outpatient psychiatrist, Dr. Pina. She would benefit from a therapist and case finisher. Consider the need for a 304 involuntary outpatient commitment. -Involve her in groups and therapy when she is able to tolerate them. 12/01 -increase aripiprazole to 30 mg daily for tomorrow. If effective, transition to [facility]. Continue Haldol and Ativan as needed in the meantime. -Fasting glucose 59, cholesterol levels within normal. -Get collateral information as the patient is a very poor historian. -She is willing for re-referral for a blended case management. -File for 304 involuntary commitment, to transition to an involuntary outpatient commitment at the time of discharge. 12/02 maintained treatment plan unchanged 12/03 - Pt continues to verbalize desire to return to haldol decanoate injections - as she does not feel aripiprazole is beneficial - Will order haloperidol 5mg TID scheduled, as receiving 5-10mg daily as available prns; reducing aripiprazole to 15mg tomorrow morning and continuing to taper - If tolerating and improvement is noticeable - can receive decanoate injection on unit - PRN doses of benztropine remain available for any EPS/TD - 304 hearing scheduled fro 12/06 - with plan to eventually convert to 304 outpatient commitment 12/04 -appears sedated with restart Haldol, speed up Abilify taper to 5 mg BID, reviewed med list and receiving BID Ativan 2 mg prn and on methadone. Will begin benzo taper to 1 mg and monitor. Hold it and Haldol for excessive sedation discussed with staff. 12/05 --resume Haldol at 5 mg BID, continue decrease frequency of Ativan dosing. Stop Abilify given concerns about QTc (491 last evening), and medical necessity of Haldol. Repeat EKG this pm. Encourage fluids. 12/06 -Repeat EKG yesterday afternoon with continued prolonged QTC (504). Aripiprazole was stopped yesterday, will recheck QTC today and consider cardiology consult. Consider decreasing methadone dose if QTC does not normalize with elimination of the atypical antipsychotic. -Current Haldol dosing insufficient to control symptoms, but will hold off on titration for now given prolonged QTC and risk of arrhythmia. -304 hearing held today. Re-refer for a blended case management. We will need a family meeting with her mother when she is able to tolerate it. (3) Methamphetamine abuse: 11/30 -UDS positive, likely contributing to insomnia, mood instability, and psychosis. -Recovery protocol. -Coordinate with [facility] and outpatient psychiatrist. -We will review recommendations for inpatient rehab once less psychotic. -Avoid prescribing controlled substances given the severity of her addictions issues. We will discontinue zolpidem. (4) Heroin abuse: 11/30 -methadone dose confirmed with [facility]. Will need to inform them of her methamphetamine and cannabis use, and review plan for ongoing MAT prior to discharge. (5) Cannabis abuse: Likely exacerbating psychotic symptoms. Once patient is less psychotic, will provide education about the risks of psychoactive substance abuse. (6) Hepatitis C: Avoid hepatotoxic agents Risk Factors Assessment Male: No : Yes Health Problems: Yes Mental Health Diagnoses: Yes Substance Use Disorders: Yes Previous Attempt: Yes Family History of Suicide: Yes Previous Psychiatric Hospitalization: Yes Smoker: Yes Protective Factors Assessment Zoroastrian Beliefs: No : No Responsible for Young Children: No (Lost custody of her children, has not seen them in months.) Employed: Yes ([employer]) Stable Relationships: No Good Rapport with Provider: No Interval History Identifying Information ELZBIETA CARTAGENA is a 33-year-old F who currently lives in [place], has a history of bipolar disorder with psychosis and polysubstance abuse (heroin, opiate pain medications, benzodiazepines, cannabis, methamphetamine), and was admitted on 11/30/18 00:43 on a 201 voluntary commitment for psychosis and command auditory hallucinations telling her to kill herself, after she removed a screen and attempted to jump out of a second story window at [facility]. Chief Complaint "I hear people talking about me all the time". Review of Systems Sleep Information Total Hours of Sleep: 11 Sleep Comments: sleep total between 08/09 and 04/07 shifts Meal Information Percent Meal Consumed - Breakfast: 50 Percent Meal Consumed - Lunch: 0 Percent Meal Consumed - Dinner: 75 Nutrition Comment: pt. asleep. Meal dated, labeled and refrigerated. Snack and fluids at bedside. Subjective Subjective Patient was seen & assessed and interval progress reviewed with Treatment Team. Staff report she remains psychotic, had a prolonged QTc (490), and has had multiple medication changes. She remains paranoid, with delusions of persecution, believes her feet are going to be cut off, and is hearing voices telling her that she is going to be harmed. On my assessment, the patient reports "terrible" auditory hallucinations of voices that are constant and telling her that she is going to be "hurt, beat me, rate me," and also that she is going to jail. She believes that these voices are coming from other patients on the unit, and is unable to reality test, even when informed that I am unable to hear any voices during our interview, whereas she is hearing them. She feels tired and has been spending a lot of her time sleeping. She says she has spoken with her mother on the phone, but she has not visited that she does not have transportation. She continues to hope to be able to live with her mother, but says she needs to "finish some paperwork," and asks if she is allowed to return to [facility] in the interim. She is aware of her 304 commitment hearing today, and voices agreement with her treatment plan. She did not attend the hearing, and it was granted. Physical Exam Psychiatric Awake but sedated. Overweight, ill fitting clothes that are not fully covering her body. Seated in bed in no acute distress. Limited hygiene and grooming, disheveled. Eye Contact: + poor eye contact Motor Behavior: no abnormal motor movements Mumbling, incoherently at times. Affect: + depressed affect (Distraught, fearful) and + constricted affect Thought Process: + perseveration (on delusions of persecution/AH) Thought Content: + paranoid, + delusions, + persecution, + hopelessness, + guilt and + self deprecation Suicidal Thoughts: denies suicidal thoughts but fears she will be harmed/killed by unseen others Homicidal Thoughts: denies homicidal thoughts Hallucinations: + auditory hallucinations Cognition: + attention not intact Insight: + severely impaired insight Judgement: + severely impaired judgement Vital Signs (Past 24 Hours) Last Vital Signs Temp 36.6 C 12/06/18 06:48 Pulse 87 12/06/18 06:49 Resp 18 12/06/18 06:48 BP 94/62 L 12/06/18 06:49 Pulse Ox 95 11/30/18 01:39 Results & Data Current Inpatient Medications Current Inpatient Medications: Current Inpatient Medications Acetaminophen (Tylenol) 650 mg PO Q4H PRN PRN Reason: Headache or Minor Fever Stop: 12/30/18 01:26 Al Hydrox/Mg Hydrox/Simethicone (Maalox) 30 ml PO Q4H PRN PRN Reason: GI Upset Stop: 12/30/18 01:26 Albuterol (Ventolin Hfa) 2 puffs INH QID PRN PRN Reason: asthma Stop: 12/30/18 11:43 Benztropine Mesylate (Cogentin) 1 mg PO TID PRN PRN Reason: EPS Stop: 12/31/18 14:03 Last Admin: 12/01/18 15:04 Dose: 1 mg Documented by: Bismuth Subsalicylate (Kaopectate) 15 ml PO PRN PRN PRN Reason: Loose Stool Stop: 12/30/18 01:26 Ferrous Sulfate (Feosol) 325 mg PO BID [facility] Stop: 12/30/18 20:59 Last Admin: 12/05/18 21:45 Dose: 325 mg Documented by: Folic Acid (Folvite) 1 mg PO DAILY [facility] Stop: 12/31/18 08:59 Last Admin: 12/05/18 10:25 Dose: 1 mg Documented by: Gabapentin (Neurontin) 600 mg PO TID [facility] Stop: 12/30/18 08:59 Last Admin: 12/05/18 21:45 Dose: 600 mg Documented by: Haloperidol (Haldol) 5 mg PO BID [facility] Stop: 01/04/19 20:59 Last Admin: 12/05/18 22:39 Dose: Not Given Documented by: Lorazepam (Ativan) 1 mg PO BID PRN PRN Reason: Anxiety/Agitation Stop: 01/03/19 12:40 Last Admin: 12/05/18 10:25 Dose: 1 mg Documented by: Lorazepam (Ativan) 2 mg IM BID PRN PRN Reason: Anxiety/Agitation Stop: 12/30/18 02:21 Magnesium Hydroxide (Milk Of Magnesia) 30 ml PO DAILY PRN PRN Reason: Heartburn Stop: 12/30/18 01:26 Methadone HCl (Methadone Hcl) 112 mg PO DAILY [facility] Stop: 12/14/18 13:59 Last Admin: 12/05/18 10:24 Dose: 112 mg Documented by: Mirtazapine (Remeron Solutab) 45 mg PO HS [facility] Stop: 12/30/18 21:59 Last Admin: 12/05/18 21:46 Dose: 45 mg Documented by: Nicotine (Nicoderm Cq) 14 mg TD QAM [facility] Stop: 12/30/18 08:59 Last Admin: 12/05/18 10:45 Dose: 14 mg Documented by: Nicotine Polacrilex (Nicorette 2mg) 1 piece MT UD PRN PRN Reason: Nicotine Withdrawal Stop: 12/30/18 01:26 Non-Formulary Medication (Patient's Own Controlled Med) 1 ea PO QAM [facility] Stop: 12/14/18 13:59 Last Admin: 12/05/18 10:48 Dose: Not Given Documented by: Pantoprazole Sodium (Protonix) 40 mg PO BID [facility] Stop: 12/30/18 08:59 Last Admin: 12/05/18 21:45 Dose: 40 mg Documented by: Prazosin HCl (Prazosin Hcl) 2 mg PO HS [facility] Stop: 12/30/18 21:59 Last Admin: 12/05/18 21:46 Dose: 2 mg Documented by: Sodium Chloride ([place] Nasal) 1 - 2 sprays NA PRN PRN PRN Reason: Nasal Dryness/Congestion Stop: 12/30/18 01:26 Mental Health & Subst Abuse Tx Psychiatrist Name of Psychiatrist: [place] [address] [facility] [address] The[facility]ist Name of Therapist: [facility] Therapist's Therapy Appointment Comment: [address] [place] [address] Registered Representative Name of Registered Representative: ANITA Gomez Phone Number for Registered Representative: [phone] Case Management Appointment Comment: [address], [address], [place] [address] Post Discharge Appointments Primary Care Physician Name Of Family Doctor: Farhad Bolton - Dr. Rin Blue [facility] Time of Appointment with PCP: Follow up as needed. Provider Appointment Comment: [address] [place] [address] Specialist Name of Specialist: [facility] Phone Number for Specialist: Specialty Appointment Comment: [address], [place] [address] Contact Information Discharge Discharge Address: [address] [place] [address] CPT Code CPT Code 37468 (1) Bipolar disorder Active/Remission status: currently active Current episode severity: severe Psychotic features: with psychotic features
[2018-12-06] MEDS: NICOTINE 14 MG/24 HR PATCH TD SCH (09:32)
[2018-12-06] MEDS: FERROUS SULFATE 325 MG TAB PO SCH ×2 (09:32→21:50)
[2018-12-06] MEDS: FOLIC ACID 1 MG TAB PO SCH (09:32)
[2018-12-06] MEDS: GABAPENTIN 600 MG TAB PO SCH ×3 (09:32→21:50)
[2018-12-06] MEDS: PANTOprazole 40 MG TAB PO SCH ×2 (09:32→21:50)
[2018-12-06] MEDS: METHADONE ORAL SOLN 2 MG/ML PO SCH (09:36)
[2018-12-06] MEDS: LORazepam 1 MG TAB PO PRN ×2 (09:37→17:55)
[2018-12-06] MEDS: PATIENT'S OWN CONTROLLED MED PO SCH (09:46)
[2018-12-06] MEDS: HALOPERIDOL 5 MG TAB PO SCH (21:50)
[2018-12-06] MEDS: PRAZOSIN HCL 1 MG CAP PO SCH (21:51)
[2018-12-06] MEDS: MIRTAZAPINE SOLTAB 15 MG PO SCH (21:51)
[2018-12-07] MEDS: FERROUS SULFATE 325 MG TAB PO SCH ×2 (08:50→20:06)
[2018-12-07] MEDS: HALOPERIDOL 5 MG TAB PO SCH ×2 (08:50→20:07)
[2018-12-07] MEDS: GABAPENTIN 600 MG TAB PO SCH ×3 (08:51→20:07)
[2018-12-07] MEDS: NICOTINE 14 MG/24 HR PATCH TD SCH (08:52)
[2018-12-07] MEDS: LORazepam 1 MG TAB PO PRN ×2 (08:52→16:33)
[2018-12-07] MEDS: PANTOprazole 40 MG TAB PO SCH ×2 (08:52→20:07)
[2018-12-07] MEDS: FOLIC ACID 1 MG TAB PO SCH (08:53)
[2018-12-07] MEDS: METHADONE ORAL SOLN 2 MG/ML PO SCH (09:47)
--- NOTE | 2018-12-07 10:34 | Psychiatric Progress Note ---
Date of Service December 07, 2018 Impression / Recommendations Impression 33-year-old female with a history of bipolar disorder type I and polysubstance abuse (heroin, now on methadone, recent IV methamphetamine, cannabis, and prescription medications and alcohol in the past) who presents with suicidality and predominant psychotic symptoms after she tried to jump out of a second story window at [facility]. She endorses constant auditory hallucinations of voices telling her that she harmed her child, that people are coming to kill her, and that she should kill herself. She is unable to reality test and lacks insight into her psychotic symptoms, believing that she hurt someone and that she should be punished and deserves to . She has been noncompliant with psychiatric treatment, psychotropic medications, case management, and continues to abuse illicit drugs which worsens her condition. 304 inpatient commitment was granted on 12/06/18, with a plan to convert this to an involuntary outpatient commitment at the time of discharge, as she reports that this was helpful in the past to keep her in treatment. Pt continues to endorse auditory hallucinations and feeling unable to contract for safety outside of the inpatient setting. (1) Suicidal thoughts: 11/30 -patient endorsed suicidal thoughts in the ER, and had attempted to jump out of a second story window prior to presentation. Suicidality appears to be driven by psychosis at this point, with command auditory hallucinations telling her to end her life. -Medically necessary private room due to severity of symptoms and unpredictable, impulsive behavior. -Suicide checks for safety. 12/03 - Pt continuing to report she feels she is "not allowed to be alive" - intense guilt and remorse leading to ongoing SI. (2) Bipolar disorder: 11/30 -history of bipolar disorder with frequent psychotic episodes, exacerbated by ongoing substance abuse (cannabis, methamphetamine, possibly others). -Current medications confirmed with outpatient records: Last discharged from our unit on Haldol Decanoate, but switched to aripiprazole by her outpatient psychiatrist in 07/2018 due to reports of sedation and weight gain. Will increase aripiprazole to 15 mg daily, and consider further increase to 30 mg daily if needed. If this is effective, she would benefit from the long-acting injectable Abilify Maintena. If ineffective, could consider short-term use of haloperidol which has been beneficial in the past. -Order fasting lipid profile and glucose for monitoring on an atypical antipsychotic. -Get collateral information from her mother or her outpatient clinicians. -Records reviewed from outpatient psychiatrist, Dr. Pina. She would benefit from a therapist and outsole caser. Consider the need for a 304 involuntary outpatient commitment. -Involve her in groups and therapy when she is able to tolerate them. 12/01 -increase aripiprazole to 30 mg daily for tomorrow. If effective, transition to [facility]. Continue Haldol and Ativan as needed in the meantime. -Fasting glucose 59, cholesterol levels within normal. -Get collateral information as the patient is a very poor historian. -She is willing for re-referral for a blended case management. -File for 304 involuntary commitment, to transition to an involuntary outpatient commitment at the time of discharge. 12/02 maintained treatment plan unchanged 12/03 - Pt continues to verbalize desire to return to haldol decanoate injections - as she does not feel aripiprazole is beneficial - Will order haloperidol 5mg TID scheduled, as receiving 5-10mg daily as available prns; reducing aripiprazole to 15mg tomorrow morning and continuing to taper - If tolerating and improvement is noticeable - can receive decanoate injection on unit - PRN doses of benztropine remain available for any EPS/TD - 304 hearing scheduled fro 12/06 - with plan to eventually convert to 304 outpatient commitment 12/04 -appears sedated with restart Haldol, speed up Abilify taper to 5 mg BID, reviewed med list and receiving BID Ativan 2 mg prn and on methadone. Will begin benzo taper to 1 mg and monitor. Hold it and Haldol for excessive sedation discussed with staff. 12/05 --resume Haldol at 5 mg BID, continue decrease frequency of Ativan dosing. Stop Abilify given concerns about QTc (491 last evening), and medical necessity of Haldol. Repeat EKG this pm. Encourage fluids. 12/06 -Repeat EKG yesterday afternoon with continued prolonged QTC (504). Aripiprazole was stopped yesterday, will recheck QTC today and consider cardiology consult. Consider decreasing methadone dose if QTC does not normalize with elimination of the atypical antipsychotic. -Current Haldol dosing insufficient to control symptoms, but will hold off on titration for now given prolonged QTC and risk of arrhythmia. -304 hearing held today. Re-refer for a blended case management. We will need a family meeting with her mother when she is able to tolerate it. 12/07 - Continue current dosing of haloperidol with ongoing EKGs to monitor for QTc. Last evening's QTc was reduced to 484 - Recommendations received from [facility] to reduce methadone dose to 107mg for 4-5 days to ideally allow for QTc normalization - Will need to continue to assess aftercare/discharge planning (3) Methamphetamine abuse: 11/30 -UDS positive, likely contributing to insomnia, mood instability, and psychosis. -Recovery protocol. -Coordinate with [facility] and outpatient psychiatrist. -We will review recommendations for inpatient rehab once less psychotic. -Avoid prescribing controlled substances given the severity of her addictions issues. We will discontinue zolpidem. (4) Heroin abuse: 11/30 -methadone dose confirmed with [facility]. Will need to inform them of her methamphetamine and cannabis use, and review plan for ongoing MAT prior to discharge. 12/07 - Communication with [facility] to discuss concerns related to QTC prolongation and methadone dose contributing to these concerns - Recommendation from Dr. Morataya is to slowly decrease methadone dose, starting with reduction by 5mg (107mg/day) for 4-5 days then re-evaluate - Will order for patient to receive 107mg dose starting tomorrow morning (5) Cannabis abuse: Likely exacerbating psychotic symptoms. Once patient is less psychotic, will provide education about the risks of psychoactive substance abuse. (6) Hepatitis C: Avoid hepatotoxic agents Risk Factors Assessment Male: No : Yes Health Problems: Yes Mental Health Diagnoses: Yes Substance Use Disorders: Yes Previous Attempt: Yes Family History of Suicide: Yes Previous Psychiatric Hospitalization: Yes Smoker: Yes Protective Factors Assessment Adventism Beliefs: No : No Responsible for Young Children: No (Lost custody of her children, has not seen them in months.) Employed: Yes ([employer]) Stable Relationships: No Good Rapport with Provider: No Interval History Identifying Information ELZBIETA CARTAGENA is a 33-year-old F who currently lives in [place], has a history of bipolar disorder with psychosis and polysubstance abuse (heroin, opiate pain medications, benzodiazepines, cannabis, methamphetamine), and was admitted on 11/30/18 00:43 on a 201 voluntary commitment for psychosis and command auditory hallucinations telling her to kill herself, after she removed a screen and attempted to jump out of a second story window at [facility]. Chief Complaint "I do not know, the Ativan is helpful and I have anxiety, but I think the Haldol may be too high of a dose. That is just my opinion. I do not know." Review of Systems Notes Constitutional: reports ongoing disruption of sleep by frequent nightmares; reports fatigue today Cardiovascular: denied Respiratory: denied Gastrointestinal: denied Neurological: denied Psychiatric: denies symptoms other than stated above Total of at least 10 systems reviewed, pertinent positives as above and in HPI. Sleep Information Total Hours of Sleep: 10.75 Sleep Comments: sleep total between 08/09 and 04/07 shifts Meal Information Percent Meal Consumed - Breakfast: 100 Percent Meal Consumed - Lunch: 25 Percent Meal Consumed - Dinner: 100 Nutrition Comment: pt. asleep. Meal dated, labeled and refrigerated. Snack and fluids at bedside. Subjective Subjective Patient was seen & assessed and interval progress reviewed with Nursing. Staff reports the patient did receive her evening dose of haloperidol, as QTC improved to 484. Patient continues to endorse ongoing auditory hallucinations. Referrals are being faxed to [facility] and the base service unit for discharge planning. Patient was seen today to assess progress since admission. Patient was initially seen this morning, but verbalized intense fatigue as she had not been sleeping well. Patient states she continues to experience nightmares which are disruptive to her sleep. Patient does verbalize that the lorazepam has been helpful in reducing her anxiety; however, she feels that it "that dose of Haldol is too high, that is just my opinion." Reviewed her current treatment plan, and that titration of oral haloperidol is necessary in order to convert to JUNIOR which has been her request. This provider explained the concerns with QTc prolongation, and interactions with her current dose of methadone. Recommendations from [facility] to reduce her methadone dosage was shared with the patient, who verbalized understanding and is agreeable plan. Patient endorses ongoing auditory hallucinations, even at one point stopping at our conversation by saying "hold on a minute" and causing for a prolonged period. Patient does state that she had heard the voices "calling me names", but indicates that the voices stopped when this provider stopped talking. The patient verbalizes some distress, as she is worried about risking her employment by a prolonged hospitalization. This provider explained to the patient that it is also not in her best interest to return to work in her current state, which she was ultimately agreeable. Patient denies any needs or concerns other than discussed above. She indicates ongoing fatigue, and believes she will take a nap this afternoon. Physical Exam Psychiatric Orientation: alert, oriented x 3 and cooperative Apperance: appropriately dressed (Casually, in T-shirt and pajama bottoms), + disheveled and appeared stated age Eye Contact: good eye contact Motor Behavior: no abnormal motor movements (Observed while sitting upright in bed) Speech: normal rate/rhythm/volume of speech Affect: + depressed affect (Fearful, overwhelmed) and + anxious affect Mood: + anxious mood "The anxiety is a little better, the Ativan helps" Thought Process: + perseveration (On auditory hallucinations and delusions of persecution) Thought Content: + paranoid, + delusions, + persecution and + guilt Patient now verbalizing knowledge that she did not perform the acts the voices suggest she did; but remains overwhelmed with the accusations Suicidal Thoughts: denies suicidal thoughts (But continues to fear she will be harmed) Homicidal Thoughts: denies homicidal thoughts Hallucinations: + auditory hallucinations Cognition: attention grossly intact Insight: + severely impaired insight Judgement: + severely impaired judgement Vital Signs (Past 24 Hours) Last Vital Signs Temp 36.9 C 12/07/18 07:04 Pulse 81 12/07/18 07:05 Resp 18 12/07/18 07:04 BP 86/58 L 12/07/18 07:05 Pulse Ox 95 11/30/18 01:39 Results & Data Laboratory Results Laboratory Results - last 24 hr 11/29/18 19:00 POC Ur Test Cancelled Current Inpatient Medications Current Inpatient Medications: Current Inpatient Medications Acetaminophen (Tylenol) 650 mg PO Q4H PRN PRN Reason: Headache or Minor Fever Stop: 12/30/18 01:26 Al Hydrox/Mg Hydrox/Simethicone (Maalox) 30 ml PO Q4H PRN PRN Reason: GI Upset Stop: 12/30/18 01:26 Albuterol (Ventolin Hfa) 2 puffs INH QID PRN PRN Reason: asthma Stop: 12/30/18 11:43 Benztropine Mesylate (Cogentin) 1 mg PO TID PRN PRN Reason: EPS Stop: 12/31/18 14:03 Last Admin: 12/01/18 15:04 Dose: 1 mg Documented by: Bismuth Subsalicylate (Kaopectate) 15 ml PO PRN PRN PRN Reason: Loose Stool Stop: 12/30/18 01:26 Ferrous Sulfate (Feosol) 325 mg PO BID BRODIE Stop: 12/30/18 20:59 Last Admin: 12/07/18 08:50 Dose: 325 mg Documented by: Folic Acid (Folvite) 1 mg PO DAILY BR[facility]IE Stop: 12/31/18 08:59 Last Admin: 12/07/18 08:53 Dose: 1 mg Documented by: Gabapentin (Neurontin) 600 mg PO TID BRODIE Stop: 12/30/18 08:59 Last Admin: 12/07/18 08:51 Dose: 600 mg Documented by: Haloperidol (Haldol) 5 mg PO BID BRODIE Stop: 01/04/19 20:59 Last Admin: 12/07/18 08:50 Dose: 5 mg Documented by: Lorazepam (Ativan) 1 mg PO BID PRN PRN Reason: Anxiety/Agitation Stop: 01/03/19 12:40 Last Admin: 12/07/18 08:52 Dose: 1 mg Documented by: Lorazepam (Ativan) 2 mg IM BID PRN PRN Reason: Anxiety/Agitation Stop: 12/30/18 02:21 Magnesium Hydroxide (Milk Of Magnesia) 30 ml PO DAILY PRN PRN Reason: Heartburn Stop: 12/30/18 01:26 Methadone HCl (Methadone Hcl) 112 mg PO DAILY BRODIE Stop: 12/14/18 13:59 Last Admin: 12/07/18 09:47 Dose: 112 mg Documented by: Mirtazapine (Remeron Solutab) 45 mg PO HS [facility] Stop: 12/30/18 21:59 Last Admin: 12/06/18 21:51 Dose: 45 mg Documented by: Nicotine (Nicoderm Cq) 14 mg TD QAM [facility] Stop: 12/30/18 08:59 Last Admin: 12/07/18 08:52 Dose: 14 mg Documented by: Nicotine Polacrilex (Nicorette 2mg) 1 piece MT UD PRN PRN Reason: Nicotine Withdrawal Stop: 12/30/18 01:26 Non-Formulary Medication (Patient's Own Controlled Med) 1 ea PO QAM [facility] Stop: 12/14/18 13:59 Last Admin: 12/06/18 09:46 Dose: Not Given Documented by: Pantoprazole Sodium (Protonix) 40 mg PO BID BRODIE Stop: 12/30/18 08:59 Last Admin: 12/07/18 08:52 Dose: 40 mg Documented by: Prazosin HCl (Prazosin Hcl) 2 mg PO HS [facility] Stop: 12/30/18 21:59 Last Admin: 12/06/18 21:51 Dose: 2 mg Documented by: Sodium Chloride (Harrison Nasal) 1 - 2 sprays NA PRN PRN PRN Reason: Nasal Dryness/Congestion Stop: 12/30/18 01:26 Mental Health & Subst Abuse Tx Psychiatrist Name of Psychiatrist: [facility] - Dr. Pina Psychiatrist's Psychiatric Appointment Comment: [address] [id number] Therapist Name of Therapist: [facility] Therapist's Therapy Appointment Comment: [address] [facility] [place] [id number] Sock Mender Name of Sock Mender: ANITA Gomez Phone Number for Sock Mender: [phone] Case Management Appointment Comment: [address], [address], [place] [address] Post Discharge Appointments Primary Care Physician Name Of Family Doctor: Farhad Bolton - Dr. Rin Blue [facility] Time of Appointment with PCP: Follow up as needed. Provider Appointment Comment: [address] [place] [address] Specialist Name of Specialist: [place] [facility] Phone Number for Specialist: Time of Appointment with Specialist: Return with your routine schedule Specialty Appointment Comment: [address], [place] [address] Contact Information [facility] Discharge [facility] [address] [place] [address] CPT Code CPT Code 26388 (1) Bipolar disorder Active/Remission status: currently active Current episode severity: severe Psychotic features: with psychotic features
[2018-12-07] MEDS: PRAZOSIN HCL 1 MG CAP PO SCH (20:07)
[2018-12-07] MEDS: MIRTAZAPINE SOLTAB 15 MG PO SCH (20:08)
[2018-12-08] MEDS: METHADONE ORAL SOLN 2 MG/ML PO SCH (09:09)
[2018-12-08] MEDS: HALOPERIDOL 5 MG TAB PO SCH ×3 (09:09→21:11)
[2018-12-08] MEDS: FERROUS SULFATE 325 MG TAB PO SCH ×2 (09:09→21:11)
[2018-12-08] MEDS: LORazepam 1 MG TAB PO PRN ×2 (09:09→17:27)
[2018-12-08] MEDS: PATIENT'S OWN CONTROLLED MED PO SCH ×2 (09:09→15:21)
[2018-12-08] MEDS: GABAPENTIN 600 MG TAB PO SCH ×3 (09:09→21:12)
[2018-12-08] MEDS: PANTOprazole 40 MG TAB PO SCH ×2 (09:09→21:12)
[2018-12-08] MEDS: FOLIC ACID 1 MG TAB PO SCH (09:09)
[2018-12-08] MEDS: NICOTINE 14 MG/24 HR PATCH TD SCH (09:19)
--- NOTE | 2018-12-08 11:43 | Psychiatric Progress Note ---
Date of Service December 08, 2018 Impression / Recommendations Impression 33-year-old female with a history of bipolar disorder type I and polysubstance abuse (heroin, now on methadone, recent IV methamphetamine, cannabis, and prescription medications and alcohol in the past) who presents with suicidality and predominant psychotic symptoms after she tried to jump out of a second story window at [facility]. She endorses constant auditory hallucinations of voices telling her that she is a bad person, has harmed children, and that she should kill herself or that other people are going to kill her. She is requested to return to Haldol, which has been beneficial in the past, and is improving and that hallucinations are less intense and she is better able to reality test. She is still poorly able to tolerate groups and isolates in her room. she has been noncompliant with psychiatric treatment, psychotropic medications, case management, and continues to abuse illicit drugs which worsens her condition. 304 inpatient commitment was granted on 12/06/18, with a plan to convert this to an involuntary outpatient commitment at the time of discharge, as she reports that this was helpful in the past to keep her in treatment. Pt continues to endorse auditory hallucinations and feeling unable to contract for safety outside of the inpatient setting. (1) Suicidal thoughts: 11/30 -patient endorsed suicidal thoughts in the ER, and had attempted to jump out of a second story window prior to presentation. Suicidality appears to be driven by psychosis at this point, with command auditory hallucinations telling her to end her life. -Medically necessary private room due to severity of symptoms and unpredictable, impulsive behavior. -Suicide checks for safety. 12/03 - Pt continuing to report she feels she is "not allowed to be alive" - intense guilt and remorse leading to ongoing SI. 12/08 -suicidality continues, but is lessening from admission. (2) Bipolar disorder: 11/30 -history of bipolar disorder with frequent psychotic episodes, exacerbated by ongoing substance abuse (cannabis, methamphetamine, possibly others). -Current medications confirmed with outpatient records: Last discharged from our unit on Haldol Decanoate, but switched to aripiprazole by her outpatient psychiatrist in 07/2018 due to reports of sedation and weight gain. Will increase aripiprazole to 15 mg daily, and consider further increase to 30 mg daily if needed. If this is effective, she would benefit from the long-acting injectable Abilify Maintena. If ineffective, could consider short-term use of haloperidol which has been beneficial in the past. -Order fasting lipid profile and glucose for monitoring on an atypical antipsychotic. -Get collateral information from her mother or her outpatient clinicians. -Records reviewed from outpatient psychiatrist, Dr. Pina. She would benefit from a therapist and family preservation caseworker. Consider the need for a 304 involuntary outpatient commitment. -Involve her in groups and therapy when she is able to tolerate them. 12/01 -increase aripiprazole to 30 mg daily for tomorrow. If effective, transition to Maintena. Continue Haldol and Ativan as needed in the meantime. -Fasting glucose 59, cholesterol levels within normal. -Get collateral information as the patient is a very poor historian. -She is willing for re-referral for a blended case management. -File for 304 involuntary commitment, to transition to an involuntary outpatient commitment at the time of discharge. 12/02 maintained treatment plan unchanged 12/03 - Pt continues to verbalize desire to return to haldol decanoate injections - as she does not feel aripiprazole is beneficial - Will order haloperidol 5mg TID scheduled, as receiving 5-10mg daily as available prns; reducing aripiprazole to 15mg tomorrow morning and continuing to taper - If tolerating and improvement is noticeable - can receive decanoate injection on unit - PRN doses of benztropine remain available for any EPS/TD - 304 hearing scheduled fro 12/06 - with plan to eventually convert to 304 outpatient commitment 12/04 -appears sedated with restart Haldol, speed up Abilify taper to 5 mg BID, reviewed med list and receiving BID Ativan 2 mg prn and on methadone. Will begin benzo taper to 1 mg and monitor. Hold it and Haldol for excessive sedation discussed with staff. 12/05 --resume Haldol at 5 mg BID, continue decrease frequency of Ativan dosing. Stop Abilify given concerns about QTc (491 last evening), and medical necessity of Haldol. Repeat EKG this pm. Encourage fluids. 12/06 -Repeat EKG yesterday afternoon with continued prolonged QTC (504). Aripiprazole was stopped yesterday, will recheck QTC today and consider cardiology consult. Consider decreasing methadone dose if QTC does not normalize with elimination of the atypical antipsychotic. -Current Haldol dosing insufficient to control symptoms, but will hold off on titration for now given prolonged QTC and risk of arrhythmia. -304 hearing held today. Re-refer for a blended case management. We will need a family meeting with her mother when she is able to tolerate it. 12/07 - Continue current dosing of haloperidol with ongoing EKGs to monitor for QTc. Last evening's QTc was reduced to 484 - Recommendations received from [facility] to reduce methadone dose to 107mg for 4-5 days to ideally allow for QTc normalization - Will need to continue to assess aftercare/discharge planning 12/08 -QTC today 477. Methadone reduced as above. Continue haloperidol 5 mg twice daily for today, but consider dose increase tomorrow. (3) Methamphetamine abuse: 11/30 -UDS positive, likely contributing to insomnia, mood instability, and psychosis. -Recovery protocol. -Coordinate with [facility] and outpatient psychiatrist. -We will review recommendations for inpatient rehab once less psychotic. -Avoid prescribing controlled substances given the severity of her addictions issues. We will discontinue zolpidem. (4) Heroin abuse: 11/30 -methadone dose confirmed with [facility]. Will need to inform them of her methamphetamine and cannabis use, and review plan for ongoing MAT prior to discharge. 12/07 - Communication with [facility] to discuss concerns related to QTC prolongation and methadone dose contributing to these concerns - Recommendation from Dr. Morataya is to slowly decrease methadone dose, starting with reduction by 5mg (107mg/day) for 4-5 days then re-evaluate - Will order for patient to receive 107mg dose starting tomorrow morning (5) Cannabis abuse: Likely exacerbating psychotic symptoms. Once patient is less psychotic, will provide education about the risks of psychoactive substance abuse. (6) Hepatitis C: Avoid hepatotoxic agents Risk Factors Assessment Male: No : Yes Health Problems: Yes Mental Health Diagnoses: Yes Substance Use Disorders: Yes Previous Attempt: Yes Family History of Suicide: Yes Previous Psychiatric Hospitalization: Yes Smoker: Yes Protective Factors Assessment Mormon Beliefs: No : No Responsible for Young Children: No (Lost custody of her children, has not seen them in months.) Employed: Yes ([employer]) Stable Relationships: No Good Rapport with Provider: No Interval History Identifying Information ELZBIETA CARTAGENA is a 33-year-old F who currently lives in [place], has a history of bipolar disorder with psychosis and polysubstance abuse (heroin, opiate pain medications, benzodiazepines, cannabis, methamphetamine), and was admitted on 11/30/18 00:43 on a 201 voluntary commitment for psychosis and command auditory hallucinations telling her to kill herself, after she removed a screen and attempted to jump out of a second story window at [facility]. Chief Complaint "Just tired". Review of Systems Notes Denies chest pain, palpitations, diarrhea, constipation Sleep Information Total Hours of Sleep: 7 Sleep Comments: she came out to the kitchen to get a drink then back to bed/sleep Meal Information Percent Meal Consumed - Breakfast: 100 Percent Meal Consumed - Lunch: 100 Percent Meal Consumed - Dinner: 90 Nutrition Comment: pt. asleep. Meal dated, labeled and refrigerated. Snack and fluids at bedside. Subjective Subjective The patient was seen & assessed and interval progress reviewed with Treatment Team. Staff report the Methadone clinic was contacted yesterday regarding her prolonged QTC, and there physician recommended decreasing her methadone to 107 mg daily. She is getting daily EKGs, and QTC today is 477. She was too anxious and distracted to tolerate groups yesterday, and spent much of the day in her room. On my assessment, she reports she continues to hear auditory hallucinations of voices telling her that she is a "baby rapist," and has done other terrible things, which causes her to feel suicidal. She is sometimes able to reality test with staff, but other times is convinced that what the voices say is the truth. She says she did not sleep at all overnight, so is tired today and unable to get out of bed. She does think that the voices are quieter than on admission, and that mood has improved slightly. Physical Exam Psychiatric Somnolent Apperance: + disheveled Lying in bed, easily aroused, but somnolence limits the interview. Eye Contact: + fair eye contact Motor Behavior: + psychomotor retardation Minimal speech Affect: + depressed affect, + constricted affect and mood congruent with affect Mood: + depressed mood Thought Process: goal directed thought process Thought Content: + delusions, + persecution, + hopelessness, + worthlessness and + self deprecation Suicidal Thoughts: + reports suicidal thoughts Homicidal Thoughts: denies homicidal thoughts Hallucinations: + auditory hallucinations Insight: + impaired insight Judgement: + impaired judgement Vital Signs (Past 24 Hours) Last Vital Signs Temp 36.8 C 12/08/18 06:51 Pulse 81 12/08/18 06:52 Resp 16 12/08/18 06:51 BP 90/60 L 12/08/18 06:52 Pulse Ox 95 11/30/18 01:39 Results & Data Current Inpatient Medications Current Inpatient Medications: Current Inpatient Medications Acetaminophen (Tylenol) 650 mg PO Q4H PRN PRN Reason: Headache or Minor Fever Stop: 12/30/18 01:26 Al Hydrox/Mg Hydrox/Simethicone (Maalox) 30 ml PO Q4H PRN PRN Reason: GI Upset Stop: 12/30/18 01:26 Albuterol (Ventolin Hfa) 2 puffs INH QID PRN PRN Reason: asthma Stop: 12/30/18 11:43 Benztropine Mesylate (Cogentin) 1 mg PO TID PRN PRN Reason: EPS Stop: 12/31/18 14:03 Last Admin: 12/01/18 15:04 Dose: 1 mg Documented by: Bismuth Subsalicylate (Kaopectate) 15 ml PO PRN PRN PRN Reason: Loose Stool Stop: 12/30/18 01:26 Ferrous Sulfate (Feosol) 325 mg PO BID [facility] Stop: 12/30/18 20:59 Last Admin: 12/08/18 09:09 Dose: 325 mg Documented by: Folic Acid (Folvite) 1 mg PO DAILY [facility] Stop: 12/31/18 08:59 Last Admin: 12/08/18 09:09 Dose: 1 mg Documented by: Gabapentin (Neurontin) 600 mg PO TID [facility] Stop: 12/30/18 08:59 Last Admin: 12/08/18 09:09 Dose: 600 mg Documented by: Haloperidol (Haldol) 5 mg PO BID [facility] Stop: 01/04/19 20:59 Last Admin: 12/08/18 09:09 Dose: 5 mg Documented by: Lorazepam (Ativan) 1 mg PO BID PRN PRN Reason: Anxiety/Agitation Stop: 01/03/19 12:40 Last Admin: 12/08/18 09:09 Dose: 1 mg Documented by: Lorazepam (Ativan) 2 mg IM BID PRN PRN Reason: Anxiety/Agitation Stop: 12/30/18 02:21 Magnesium Hydroxide (Milk Of Magnesia) 30 ml PO DAILY PRN PRN Reason: Heartburn Stop: 12/30/18 01:26 Methadone HCl (Methadone Hcl) 107 mg PO DAILY [facility] Stop: 12/22/18 08:59 Last Admin: 12/08/18 09:09 Dose: 107 mg Documented by: Mirtazapine (Remeron Solutab) 45 mg PO HS [facility] Stop: 12/30/18 21:59 Last Admin: 12/07/18 20:08 Dose: 45 mg Documented by: Nicotine (Nicoderm Cq) 14 mg TD QAM [facility] Stop: 12/30/18 08:59 Last Admin: 12/08/18 09:19 Dose: 14 mg Documented by: Nicotine Polacrilex (Nicorette 2mg) 1 piece MT UD PRN PRN Reason: Nicotine Withdrawal Stop: 12/30/18 01:26 Non-Formulary Medication (Patient's Own Controlled Med) 1 ea PO QAM [facility] Stop: 12/14/18 13:59 Last Admin: 12/08/18 09:09 Dose: Not Given Documented by: Pantoprazole Sodium (Protonix) 40 mg PO BID [facility] Stop: 12/30/18 08:59 Last Admin: 12/08/18 09:09 Dose: 40 mg Documented by: Prazosin HCl (Prazosin Hcl) 2 mg PO HS [facility] Stop: 12/30/18 21:59 Last Admin: 12/07/18 20:07 Dose: 2 mg Documented by: Sodium Chloride ([place] Nasal) 1 - 2 sprays NA PRN PRN PRN Reason: Nasal Dryness/Congestion Stop: 12/30/18 01:26 Mental Health & Subst Abuse Tx Psychiatrist Name of Psychiatrist: [place] [facility]rist's Psychiatric Appointment Comment: [address] [place] [address] Therapist Name of Therapist: [facility] - Intake with Love (ask to see Opal moving forward after the intake) Therapist's Date of Therapist Appointment: 12/24/18 Time of Therapist Appointment: 1:00 p.m. Therapy Appointment Comment: [address] [facility] [place] [address] Semiautomatic Stitcher Operator Name of Semiautomatic Stitcher Operator: ANITA Swiftese Gomez Phone Number for Semiautomatic Stitcher Operator: [phone] Case Management Appointment Comment: [address], [address], [place] [address] Post Discharge Appointments Primary Care Physician Name Of Family Doctor: [facility] - Dr. Rin Blue [facility] Time of Appointment with PCP: Follow up as needed. Provider Appointment Comment: [address] [place] [address] Specialist Name of Specialist: [facility] Phone Number for Specialist: Time of Appointment with Specialist: Return with your routine schedule Specialty Appointment Comment: [address], [place] [address] Contact Information Discharge Discharge Address: [address] [place] [address] CPT Code CPT Code 17908 (1) Bipolar disorder Active/Remission status: currently active Current episode severity: severe Psychotic features: with psychotic features
[2018-12-08] MEDS: PRAZOSIN HCL 1 MG CAP PO SCH (21:12)
[2018-12-08] MEDS: MIRTAZAPINE SOLTAB 15 MG PO SCH (21:12)
[2018-12-09] MEDS: FOLIC ACID 1 MG TAB PO SCH (09:25)
[2018-12-09] MEDS: HALOPERIDOL 5 MG TAB PO SCH ×3 (09:25→21:41)
[2018-12-09] MEDS: FERROUS SULFATE 325 MG TAB PO SCH ×2 (09:25→21:41)
[2018-12-09] MEDS: METHADONE ORAL SOLN 2 MG/ML PO SCH (09:26)
[2018-12-09] MEDS: NICOTINE 14 MG/24 HR PATCH TD SCH (09:27)
[2018-12-09] MEDS: GABAPENTIN 600 MG TAB PO SCH ×3 (09:27→21:41)
[2018-12-09] MEDS: PATIENT'S OWN CONTROLLED MED PO SCH (09:27)
[2018-12-09] MEDS: PANTOprazole 40 MG TAB PO SCH ×2 (09:27→21:41)
--- NOTE | 2018-12-09 10:55 | Psychiatric Progress Note ---
Date of Service December 09, 2018 Impression / Recommendations Impression 33-year-old female with a history of bipolar disorder type I and polysubstance abuse (heroin, now on methadone, recent IV methamphetamine, cannabis, and prescription medications and alcohol in the past) who presents with suicidality and predominant psychotic symptoms after she tried to jump out of a second story window at [facility]. She endorses constant auditory hallucinations of voices telling her that she is a bad person, has harmed children, and that she should kill herself or that other people are going to kill her. She has requested to return to Haldol, which has been beneficial in the past, and is improving and that hallucinations are less intense and she is better able to reality test. She is still poorly able to tolerate groups and isolates in her room. QTc prolongation has limited more rapid titration to therapeutic dosing. She has been noncompliant with psychiatric treatment, psychotropic medications, case management, and continues to abuse illicit drugs which worsens her condition. 304 inpatient commitment was granted on 12/06/18, with a plan to convert this to an involuntary outpatient commitment at the time of discharge, as she reports that this was helpful in the past to keep her in treatment. Pt continues to endorse auditory hallucinations and feeling unable to contract for safety outside of the inpatient setting. (1) Suicidal thoughts: 11/30 -patient endorsed suicidal thoughts in the ER, and had attempted to jump out of a second story window prior to presentation. Suicidality appears to be driven by psychosis at this point, with command auditory hallucinations telling her to end her life. -Medically necessary private room due to severity of symptoms and unpredictable, impulsive behavior. -Suicide checks for safety. 12/03 - Pt continuing to report she feels she is "not allowed to be alive" - intense guilt and remorse leading to ongoing SI. 12/08 -suicidality continues, but is lessening from admission. (2) Bipolar disorder: 11/30 -history of bipolar disorder with frequent psychotic episodes, exacerbated by ongoing substance abuse (cannabis, methamphetamine, possibly othe rs). -Current medications confirmed with outpatient records: Last discharged from our unit on Haldol Decanoate, but switched to aripiprazole by her outpatient psychiatrist in 07/2018 due to reports of sedation and weight gain. Will increase aripiprazole to 15 mg daily, and consider further increase to 30 mg daily if needed. If this is effective, she would benefit from the long-acting injectable Abilify Maintena. If ineffective, could consider short-term use of haloperidol which has been beneficial in the past. -Order fasting lipid profile and glucose for monitoring on an atypical antipsychotic. -Get collateral information from her mother or her outpatient clinicians. -Records reviewed from outpatient psychiatrist, Dr. Pina. She would benefit from a therapist and child welfare caseworker. Consider the need for a 304 involuntary outpatient commitment. -Involve her in groups and therapy when she is able to tolerate them. 12/01 -increase aripiprazole to 30 mg daily for tomorrow. If effective, tra nsition to Maintena. Continue Haldol and Ativan as needed in the meantime. -Fasting glucose 59, cholesterol levels within normal. -Get collateral information as the patient is a very poor historian. -She is willing for re-referral for a blended case management. -File for 304 involuntary commitment, to transition to an involuntary outpatient commitment at the time of discharge. 12/02 maintained treatment plan unchanged 12/03 - Pt continues to verbalize desire to return to haldol decanoate injections - as she does not feel aripiprazole is beneficial - Will order haloperidol 5mg TID scheduled, as receiving 5-10mg daily as available prns; reducing aripiprazole to 15mg tomorrow morning and continuing to taper - If tolerating and improvement is noticeable - can receive decanoate injection on unit - PRN doses of benztropine remain available for any EPS/TD - 304 hearing scheduled fro 12/06 - with plan to eventually convert to 304 outpatient commitment 12/04 -appears sedated with restart Haldol, speed up Abilify taper to 5 mg BID, reviewed med list and receiving BID Ativan 2 mg prn and on methadone. Will begin benzo taper to 1 mg and monitor. Hold it and Haldol for excessive sedation discussed with staff. 12/05 --resume Haldol at 5 mg BID, continue decrease frequency of Ativan dosing. Stop Abilify given concerns about QTc (491 last evening), and medical necessity of Haldol. Repeat EKG this pm. Encourage fluids. 12/06 -Repeat EKG yesterday afternoon with continued prolonged QTC (504). Aripiprazole was stopped yesterday, will recheck QTC today and consider cardiology consult. Consider decreasing methadone dose if QTC does not normalize with elimination of the atypical antipsychotic. -Current Haldol dosing insufficient to control symptoms, but will hold off on titration for now given prolonged QTC and risk of arrhythmia. -304 hearing held today. Re-refer for a blended case management. We will need a family meeting with her mother when she is able to tolerate it. 12/07 - Continue current dosing of haloperidol with ongoing EKGs to monitor for QTc. Last evening's QTc was reduced to 484 - Recommendations received from [facility] to reduce methadone do se to 107mg for 4-5 days to ideally allow for QTc normalization - Will need to continue to assess aftercare/discharge planning 12/08 -QTC today 477. Methadone reduced as above. Continue haloperidol 5 mg twice daily for today, but consider dose increase tomorrow. 12/09 - PRN haloperidol 5mg was provided to patient yesterday afternoon - subsequently, dose was increased to 5mg TID scheduled - Repeat QTc today is 479. Will continue daily EKGs to monitor for QTc prolongation limiting more rapid titration of haloperidol - Consider need to further taper methadone - as recommended by [facility] - could consider reducing dose to 102mg after a few days if QTc remains prolonged - Will need to confirm current outpatient psychiatrist is able to manage patient on 304 outpatient commitment or refer accordingly to another provider (3) Methamphetamine abuse: 11/30 -UDS positive, likely contributing to insomnia, mood instability, and psychosis. -Recovery protocol. -Coordinate with [facility] and outpatient psychiatrist. -We will review recommendations for inpatient rehab once less psychotic. -Avoid prescribing controlled substances given the severity of her addictions issues. We will discontinue zolpidem. (4) Heroin abuse: 11/30 -methadone dose confirmed with [facility]. Will need to inform them of her methamphetamine and cannabis use, and review plan for ongoing MAT prior to discharge. 12/07 - Communication with [facility] to discuss concerns related to QTC prolongation and methadone dose contributing to these concerns - Recommendation from Dr. Morataya is to slowly decrease methadone dose, starting with reduction by 5mg (107mg/day) for 4-5 days then re-evaluate - Will order for patient to receive 107mg dose starting tomorrow morning (5) Cannabis abuse: Likely exacerbating psychotic symptoms. Once patient is less psychotic, will provide education about the risks of psychoactive substance abuse. (6) Hepatitis C: Avoid hepatotoxic agents Risk Factors Assessment Male: No : Yes Health Problems: Yes Mental Health Diagnoses: Yes Substance Use Disorders: Yes Previous Attempt: Yes Family History of Suicide: Yes Previous Psychiatric Hospitalization: Yes Smoker: Yes Protective Factors Assessment Moravian Beliefs: No : No Responsible for Young Children: No (Lost custody of her children, has not seen them in months.) Employed: Yes ([employer]) Stable Relationships: No Good Rapport with Provider: No Interval History Identifying Information ELZBIETA CARTAGENA is a 33-year-old F who currently lives in [place], has a history of bipolar disorder with psychosis and polysubstance abuse (heroin, opiate pain medications, benzodiazepines, cannabis, methamphetamine), and was admitted on 11/30/18 00:43 on a 201 voluntary commitment for psychosis and command auditory hallucinations telling her to kill herself, after she removed a screen and attempted to jump out of a second story window at [facility]. Chief Complaint "I don't know. I'm feeling really depressed." Review of Systems Notes Constitutional: reports ongoing fatigue Cardiovascular: denied Respiratory: denied Gastrointestinal: denied Neurological: denied Psychiatric: denies symptoms other than stated above Total of at least 10 systems reviewed, pertinent positives as above and in HPI. Sleep Information Total Hours of Sleep: 7.75 Sleep Comments: she came out to the kitchen to get a drink then back to bed/sleep Meal Information Percent Meal Consumed - Breakfast: 10 Percent Meal Consumed - Lunch: 50 Percent Meal Consumed - Dinner: 100 Nutrition Comment: pt. asleep. Meal dated, labeled and refrigerated. Snack and fluids at bedside. Subjective Subjective Patient was seen & assessed and interval progress reviewed with nursing and social work. Staff reports the patient continues to complain of auditory hallucinations throughout the day. She remains on serial EKGs to monitor for QTC prolongation. Patient was seen today to assess progress since admission. She reports ongoing depression, and continues to be disturbed by persistent auditory hallucinations. Patient states today they are telling her "that I am supposed to do a 3-day fast." Patient states they are not providing a reason for the past, but continued to tell her "I am a terrible person." Patient has been isolating in her room for most of the day, and was asked about her comfort level attempting to attend groups. Patient states that groups generally distraction from her auditory hallucinations; however, "I get the feeling people do not want me there." Patient was asked if this was her personal perception of the situation or if the voices were telling her she was unwanted in these settings. Patient states "I am not sure I would be able to tell the difference at this point." The patient does admit that higher daily doses of haloperidol are effective for calming the voices, and is interested in continuing to titrate the medication. Patient denies other needs or concerns today. Physical Exam Psychiatric Orientation: alert, oriented x 3 and cooperative Apperance: appropriately dressed (casually in t-shirt and sweat pants) and + disheveled Eye Contact: good eye contact Motor Behavior: no abnormal motor movements (observed while laying in bed) Speech: normal rate/rhythm/volume of speech Affect: + depressed affect (fearful affect) Mood: + depressed mood ("I'm really depressed") Thought Process: goal directed thought process and + perseveration (on auditory hallucinations) Thought Content: + paranoid, + delusions, + hopelessness and + worthlessness Suicidal Thoughts: denies suicidal thoughts Homicidal Thoughts: denies homicidal thoughts Hallucinations: + auditory hallucinations (ongoing, more subdued following haloperidol dosing); no visual hallucinations Cognition: attention grossly intact and language grossly intact Insight: + impaired insight Judgement: + impaired judgement Vital Signs (Past 24 Hours) Last Vital Signs Temp 36.5 C 12/09/18 07:05 Pulse 120 H 12/09/18 07:06 Resp 18 12/09/18 07:05 BP 72/55 L 12/09/18 07:06 Pulse Ox 95 11/30/18 01:39 Results & Data Current Inpatient Medications Current Inpatient Medications: Current Inpatient Medications Acetaminophen (Tylenol) 650 mg PO Q4H PRN PRN Reason: Headache or Minor Fever Stop: 12/30/18 01:26 Al Hydrox/Mg Hydrox/Simethicone (Maalox) 30 ml PO Q4H PRN PRN Reason: GI Upset Stop: 12/30/18 01:26 Albuterol (Ventolin Hfa) 2 puffs INH QID PRN PRN Reason: asthma Stop: 12/30/18 11:43 Benztropine Mesylate (Cogentin) 1 mg PO TID PRN PRN Reason: EPS Stop: 12/31/18 14:03 Last Admin: 12/01/18 15:04 Dose: 1 mg Documented by: Bismuth Subsalicylate (Kaopectate) 15 ml PO PRN PRN PRN Reason: Loose Stool Stop: 12/30/18 01:26 Ferrous Sulfate (Feosol) 325 mg PO BID [facility] Stop: 12/30/18 20:59 Last Admin: 12/09/18 09:25 Dose: 325 mg Documented by: Folic Acid (Folvite) 1 mg PO DAILY [facility] Stop: 12/31/18 08:59 Last Admin: 12/09/18 09:25 Dose: 1 mg Documented by: Gabapentin (Neurontin) 600 mg PO TID [facility] Stop: 12/30/18 08:59 Last Admin: 12/09/18 09:27 Dose: 600 mg Documented by: Haloperidol (Haldol) 5 mg PO TID [facility] Stop: 01/07/19 13:59 Last Admin: 12/09/18 09:25 Dose: 5 mg Documented by: Lorazepam (Ativan) 1 mg PO BID PRN PRN Reason: Anxiety/Agitation Stop: 01/03/19 12:40 Last Admin: 12/08/18 17:27 Dose: 1 mg Documented by: Lorazepam (Ativan) 2 mg IM BID PRN PRN Reason: Anxiety/Agitation Stop: 12/30/18 02:21 Magnesium Hydroxide (Milk Of Magnesia) 30 ml PO DAILY PRN PRN Reason: Heartburn Stop: 12/30/18 01:26 Methadone HCl (Methadone Hcl) 107 mg PO DAILY [facility] Stop: 12/22/18 08:59 Last Admin: 12/09/18 09:26 Dose: 107 mg Documented by: Mirtazapine (Remeron Solutab) 45 mg PO HS [facility] Stop: 12/30/18 21:59 Last Admin: 12/08/18 21:12 Dose: 45 mg Documented by: Nicotine (Nicoderm Cq) 14 mg TD QAM [facility] Stop: 12/30/18 08:59 Last Admin: 12/09/18 09:27 Dose: 14 mg Documented by: Nicotine Polacrilex (Nicorette 2mg) 1 piece MT UD PRN PRN Reason: Nicotine Withdrawal Stop: 12/30/18 01:26 Non-Formulary Medication (Patient's Own Controlled Med) 1 ea PO QAM [facility] Stop: 12/14/18 13:59 Last Admin: 12/09/18 09:27 Dose: Not Given Documented by: Pantoprazole Sodium (Protonix) 40 mg PO BID BRODIE Stop: 12/30/18 08:59 Last Admin: 12/09/18 09:27 Dose: 40 mg Documented by: Prazosin HCl (Prazosin Hcl) 2 mg PO HS BRODIE Stop: 12/30/18 21:59 Last Admin: 12/08/18 21:12 Dose: 2 mg Documented by: Sodium Chloride ([place]on Nasal) 1 - 2 sprays NA PRN PRN PRN Reason: Nasal Dryness/Congestion Stop: 12/30/18 01:26 Mental Health & Subst Abuse Tx Psychiatrist Name of Psychiatrist: [facility] Date of Appointment with Psychiatrist: 12/21/18 Time of Appointment with Psychiatrist: 1:15 p.m. Psychiatric Appointment Comment: [address] [place] [address] Therapist Name of Therapist: [facility] - Intake with Love (ask to see Opal moving forward after the intake) Therapist's Date of Therapist Appointment: 12/24/18 Time of Therapist Appointment: 1:00 p.m. Therapy Appointment Comment: [address] [place] [address] Net Fisher Name of Net Fisher: ANITA Gomez Phone Number for Net Fisher: [phone] Case Management Appointment Comment: [address], [address], [place] [address] Post Discharge Appointments Primary Care Physician Name Of Family Doctor: [facility] - Dr. Rin Blue [facility] Time of Appointment with PCP: Follow up as needed. Provider Appointment Comment: [address] [place] [address] Specialist Name of Specialist: [facility] [place] [facility] Phone Number for Specialist: Time of Appointment with Specialist: Return with your routine schedule Specialty Appointment Comment: [address], [place] [address] Contact Information Discharge Discharge Address: [address] [place] [address] CPT Code CPT Code 35039 (1) Bipolar disorder Active/Remission status: currently active Current episode severity: severe Psychotic features: with psychotic features
[2018-12-09] MEDS: LORazepam 1 MG TAB PO PRN ×2 (12:57→15:42)
[2018-12-09] MEDS: MIRTAZAPINE SOLTAB 15 MG PO SCH (21:41)
[2018-12-09] MEDS: PRAZOSIN HCL 1 MG CAP PO SCH (21:41)
[2018-12-10] MEDS: FOLIC ACID 1 MG TAB PO SCH (08:41)
[2018-12-10] MEDS: GABAPENTIN 600 MG TAB PO SCH ×3 (08:41→21:05)
[2018-12-10] MEDS: HALOPERIDOL 5 MG TAB PO SCH ×3 (08:41→21:05)
[2018-12-10] MEDS: PANTOprazole 40 MG TAB PO SCH ×2 (08:41→21:05)
[2018-12-10] MEDS: LORazepam 1 MG TAB PO PRN ×3 (08:41→21:06)
[2018-12-10] MEDS: METHADONE ORAL SOLN 2 MG/ML PO SCH (08:41)
[2018-12-10] MEDS: FERROUS SULFATE 325 MG TAB PO SCH ×2 (08:41→21:05)
[2018-12-10] MEDS: NICOTINE 14 MG/24 HR PATCH TD SCH (08:48)
[2018-12-10] MEDS: PATIENT'S OWN CONTROLLED MED PO SCH (08:48)
--- NOTE | 2018-12-10 09:14 | Psychiatric Progress Note ---
Date of Service December 10, 2018 Impression / Recommendations Impression 33-year-old female with a history of bipolar disorder type I and polysubstance abuse (heroin, now on methadone, recent IV methamphetamine, cannabis, and prescription medications and alcohol in the past) who presents with suicidality and predominant psychotic symptoms after she tried to jump out of a second story window at [facility]. She endorses constant auditory hallucinations of voices telling her that she is a bad person, has harmed children, and that she should kill herself or that other people are going to kill her. She has requested to return to Haldol, which has been beneficial in the past, and is improving and that hallucinations are less intense and she is better able to reality test. She is still poorly able to tolerate groups and isolates in her room. QTc prolongation has limited more rapid titration to therapeutic dosing. She has been noncompliant with psychiatric treatment, psychotropic medications, case management, and continues to abuse illicit drugs which worsens her condition. 304 inpatient commitment was granted on 12/06/18, with a plan to convert this to an involuntary outpatient commitment at the time of discharge, as she reports that this was helpful in the past to keep her in treatment. Pt continues to endorse auditory hallucinations and feeling unable to contract for safety outside of the inpatient setting. (1) Suicidal thoughts: 11/30 -patient endorsed suicidal thoughts in the ER, and had attempted to jump out of a second story window prior to presentation. Suicidality appears to be driven by psychosis at this point, with command auditory hallucinations telling her to end her life. -Medically necessary private room due to severity of symptoms and unpredictable, impulsive behavior. -Suicide checks for safety. 12/03 - Pt continuing to report she feels she is "not allowed to be alive" - intense guilt and remorse leading to ongoing SI. 12/08 -suicidality continues, but is lessening from admission. (2) Bipolar disorder: 11/30 -history of bipolar disorder with frequent psychotic episodes, exacerbated by ongoing substance abuse (cannabis, methamphetamine, possibly othe rs). -Current medications confirmed with outpatient records: Last discharged from our unit on Haldol Decanoate, but switched to aripiprazole by her outpatient psychiatrist in 07/2018 due to reports of sedation and weight gain. Will increase aripiprazole to 15 mg daily, and consider further increase to 30 mg daily if needed. If this is effective, she would benefit from the long-acting injectable Abilify Maintena. If ineffective, could consider short-term use of haloperidol which has been beneficial in the past. -Order fasting lipid profile and glucose for monitoring on an atypical antipsychotic. -Get collateral information from her mother or her outpatient clinicians. -Records reviewed from outpatient psychiatrist, Dr. Pina. She would benefit from a therapist and case resolution specialist. Consider the need for a 304 involuntary outpatient commitment. -Involve her in groups and therapy when she is able to tolerate them. 12/01 -increase aripiprazole to 30 mg daily for tomorrow. If effective, tra nsition to Maintena. Continue Haldol and Ativan as needed in the meantime. -Fasting glucose 59, cholesterol levels within normal. -Get collateral information as the patient is a very poor historian. -She is willing for re-referral for a blended case management. -File for 304 involuntary commitment, to transition to an involuntary outpatient commitment at the time of discharge. 12/02 maintained treatment plan unchanged 12/03 - Pt continues to verbalize desire to return to haldol decanoate injections - as she does not feel aripiprazole is beneficial - Will order haloperidol 5mg TID scheduled, as receiving 5-10mg daily as available prns; reducing aripiprazole to 15mg tomorrow morning and continuing to taper - If tolerating and improvement is noticeable - can receive decanoate injection on unit - PRN doses of benztropine remain available for any EPS/TD - 304 hearing scheduled fro 12/06 - with plan to eventually convert to 304 outpatient commitment 12/04 -appears sedated with restart Haldol, speed up Abilify taper to 5 mg BID, reviewed med list and receiving BID Ativan 2 mg prn and on methadone. Will begin benzo taper to 1 mg and monitor. Hold it and Haldol for excessive sedation discussed with staff. 12/05 --resume Haldol at 5 mg BID, continue decrease frequency of Ativan dosing. Stop Abilify given concerns about QTc (491 last evening), and medical necessity of Haldol. Repeat EKG this pm. Encourage fluids. 12/06 -Repeat EKG yesterday afternoon with continued prolonged QTC (504). Aripiprazole was stopped yesterday, will recheck QTC today and consider cardiology consult. Consider decreasing methadone dose if QTC does not normalize with elimination of the atypical antipsychotic. -Current Haldol dosing insufficient to control symptoms, but will hold off on titration for now given prolonged QTC and risk of arrhythmia. -304 hearing held today. Re-refer for a blended case management. We will need a family meeting with her mother when she is able to tolerate it. 12/07 - Continue current dosing of haloperidol with ongoing EKGs to monitor for QTc. Last evening's QTc was reduced to 484 - Recommendations received from [facility] to reduce methadone do se to 107mg for 4-5 days to ideally allow for QTc normalization - Will need to continue to assess aftercare/discharge planning 12/08 -QTC today 477. Methadone reduced as above. Continue haloperidol 5 mg twice daily for today, but consider dose increase tomorrow. 12/09 - PRN haloperidol 5mg was provided to patient yesterday afternoon - subsequently, dose was increased to 5mg TID scheduled - Repeat QTc today is 479. Will continue daily EKGs to monitor for QTc prolongation limiting more rapid titration of haloperidol - Consider need to further taper methadone - as recommended by [facility] - could consider reducing dose to 102mg after a few days if QTc remains prolonged - Will need to confirm current outpatient psychiatrist is able to manage patient on 304 outpatient commitment or refer accordingly to another provider 12/10 - Continue haloperidol 5mg TID, further titration as appropriate - Continue methadone 107mg tomorrow morning, recommend reducing to 102mg thereafter - QTc of 488 this morning, continue to monitor daily EKGs - As sedation has improved, will order lorazepam TID prn, given level of anxiety and concerns with more rapid titration of haloperidol to target symptoms (3) Methamphetamine abuse: 11/30 -UDS positive, likely contributing to insomnia, mood instability, and psychosis. -Recovery protocol. -Coordinate with [facility] and outpatient psychiatrist. -We will review recommendations for inpatient rehab once less psychotic. -Avoid prescribing controlled substances given the severity of her addictions issues. We will discontinue zolpidem. (4) Heroin abuse: 11/30 -methadone dose confirmed with [facility]. Will need to inform them of her methamphetamine and cannabis use, and review plan for ongoing MAT prior to discharge. 12/07 - Communication with [facility] to discuss concerns related to QTC prolongation and methadone dose contributing to these concerns - Recommendation from Dr. Hood is to slowly decrease methadone dose, starting with reduction by 5mg (107mg/day) for 4-5 days then re-evaluate - Will order for patient to receive 107mg dose starting tomorrow morning (5) Cannabis abuse: Likely exacerbating psychotic symptoms. Once patient is less psychotic, will provide education about the risks of psychoactive substance abuse. (6) Hepatitis C: Avoid hepatotoxic agents Risk Factors Assessment Male: No : Yes Health Problems: Yes Mental Health Diagnoses: Yes Substance Use Disorders: Yes Previous Attempt: Yes Family History of Suicide: Yes Previous Psychiatric Hospitalization: Yes Smoker: Yes Protective Factors Assessment L[employer]-Day Beliefs: No : No Responsible for Young Children: No (Lost custody of her children, has not seen them in months.) Employed: Yes ([employer]) Stable Relationships: No Good Rapport with Provider: No Interval History Identifying Information ELZBIETA CARTAGENA is a 33-year-old F who currently lives in [place], has a history of bipolar disorder with psychosis and polysubstance abuse (heroin, opiate pain medications, benzodiazepines, cannabis, methamphetamine), and was admitted on 11/30/18 00:43 on a 201 voluntary commitment for psychosis and command auditory hallucinations telling her to kill herself, after she removed a screen and attempted to jump out of a second story window at [facility]. Chief Complaint "Oh, it's going." Review of Systems Notes Constitutional: reports mild fatigue today Cardiovascular: denied Respiratory: denied Gastrointestinal: denied Neurological: denied Psychiatric: denies symptoms other than stated above Total of at least 10 systems reviewed, pertinent positives as above and in HPI. Sleep Information Total Hours of Sleep: 6 Sleep Comments: she came out to the kitchen to get a drink then back to bed/sleep Meal Information Percent Meal Consumed - Breakfast: 10 Percent Meal Consumed - Lunch: 40 Percent Meal Consumed - Dinner: 100 Nutrition Comment: pt. asleep. Meal dated, labeled and refrigerated. Snack and fluids at bedside. Subjective Subjective Patient was seen & assessed and interval progress reviewed with Treatment Team. Staff reports the patient continues to be paranoid, believing people don't like her or are talking about her. She was able to tolerate being present in some groups yesterday. She remains on serial EKGs to monitor QTc prolongation. Pt was seen today to assess progress since admission. Pt states she is "dealing with a lot of thoughts today." Pt admits that the voices have a greater presence today and it is more difficult to distract herself from them - explaining why she is currently planning to remain in her room all day. Pt interrupts our conversation by stating, "see, just now, out there [hallway], they said that Edmond is going to be a paid for hire murderer and get me with a hook." Pt states that at times it is helpful to hear reassurance that she has not done the horrible things the voices insist she has. She states she called her mother last evening who assured her she has not harmed her children. Today, patient states, "it's a toss-up" as far as if she believes the voices or staff/supports regarding these accusations. Pt denies other needs at this time and was encouraged to continue to communicate any concern with staff. Physical Exam Psychiatric Orientation: alert, oriented x 3 and cooperative Apperance: appropriately dressed and + disheveled Eye Contact: good eye contact Motor Behavior: steady gait and station and no abnormal motor movements Speech: normal rate/rhythm/volume of speech Affect: + depressed affect and + anxious affect (fearful) Mood: + anxious mood ("I'm still scared") Thought Process: goal directed thought process and + perseveration Thought Content: + paranoid, + delusions, + hopelessness and + worthlessness Suicidal Thoughts: denies suicidal thoughts Homicidal Thoughts: denies homicidal thoughts Hallucinations: + auditory hallucinations (Ongoing, stronger presence today); no visual hallucinations Cognition: attention grossly intact and language grossly intact Insight: + impaired insight Judgement: + impaired judgement Vital Signs (Past 24 Hours) Last Vital Signs Temp 36.6 C 12/10/18 06:47 Pulse 94 H 12/10/18 06:48 Resp 16 12/10/18 06:47 BP 78/53 L 12/10/18 06:48 Pulse Ox 95 11/30/18 01:39 Results & Data Current Inpatient Medications Current Inpatient Medications: Current Inpatient Medications Acetaminophen (Tylenol) 650 mg PO Q4H PRN PRN Reason: Headache or Minor Fever Stop: 12/30/18 01:26 Al Hydrox/Mg Hydrox/Simethicone (Maalox) 30 ml PO Q4H PRN PRN Reason: GI Upset Stop: 12/30/18 01:26 Albuterol (Ventolin Hfa) 2 puffs INH QID PRN PRN Reason: asthma Stop: 12/30/18 11:43 Benztropine Mesylate (Cogentin) 1 mg PO TID PRN PRN Reason: EPS Stop: 12/31/18 14:03 Last Admin: 12/01/18 15:04 Dose: 1 mg Documented by: Bismuth Subsalicylate (Kaopectate) 15 ml PO PRN PRN PRN Reason: Loose Stool Stop: 12/30/18 01:26 Ferrous Sulfate (Feosol) 325 mg PO BID BRODIE Stop: 12/30/18 20:59 Last Admin: 12/10/18 08:41 Dose: 325 mg Documented by: Folic Acid (Folvite) 1 mg PO DAILY [facility] Stop: 12/31/18 08:59 Last Admin: 12/10/18 08:41 Dose: 1 mg Documented by: Gabapentin (Neurontin) 600 mg PO TID [facility] Stop: 12/30/18 08:59 Last Admin: 12/10/18 08:41 Dose: 600 mg Documented by: Haloperidol (Haldol) 5 mg PO TID BRODIE Stop: 01/07/19 13:59 Last Admin: 12/10/18 08:41 Dose: 5 mg Documented by: Lorazepam (Ativan) 1 mg PO BID PRN PRN Reason: Anxiety/Agitation Stop: 01/03/19 12:40 Last Admin: 12/10/18 08:41 Dose: 1 mg Documented by: Lorazepam (Ativan) 2 mg IM BID PRN PRN Reason: Anxiety/Agitation Stop: 12/30/18 02:21 Magnesium Hydroxide (Milk Of Magnesia) 30 ml PO DAILY PRN PRN Reason: Heartburn Stop: 12/30/18 01:26 Methadone HCl (Methadone Hcl) 107 mg PO DAILY [facility] Stop: 12/22/18 08:59 Last Admin: 12/10/18 08:41 Dose: 107 mg Documented by: Mirtazapine (Remeron Solutab) 45 mg PO HS [facility] Stop: 12/30/18 21:59 Last Admin: 12/09/18 21:41 Dose: 45 mg Documented by: Nicotine (Nicoderm Cq) 14 mg TD QAM [facility] Stop: 12/30/18 08:59 Last Admin: 12/10/18 08:48 Dose: 14 mg Documented by: Nicotine Polacrilex (Nicorette 2mg) 1 piece MT UD PRN PRN Reason: Nicotine Withdrawal Stop: 12/30/18 01:26 Non-Formulary Medication (Patient's Own Controlled Med) 1 ea PO QAM BR[facility]IE Stop: 12/14/18 13:59 Last Admin: 12/10/18 08:48 Dose: Not Given Documented by: Pantoprazole Sodium (Protonix) 40 mg PO BID BR[facility]IE Stop: 12/30/18 08:59 Last Admin: 12/10/18 08:41 Dose: 40 mg Documented by: Prazosin HCl (Prazosin Hcl) 2 mg PO HS [facility] Stop: 12/30/18 21:59 Last Admin: 12/09/18 21:41 Dose: 2 mg Documented by: Sodium Chloride ([place] Nasal) 1 - 2 sprays NA PRN PRN PRN Reason: Nasal Dryness/Congestion Stop: 12/30/18 01:26 Mental Health & Subst Abuse Tx Psychiatrist Name of Psychiatrist: [facility] Date of Appointment with Psychiatrist: 12/21/18 Time of Appointment with Psychiatrist: 1:15 p.m. Psychiatric Appointment Comment: [address] [place] [address] Therapist Name of Therapist: [facility] - Intake with Love (ask to see Opal moving forward after the intake) Therapist's Date of Therapist Appointment: 12/24/18 Time of Therapist Appointment: 1:00 p.m. Therapy Appointment Comment: [address] [place] [address] Drag Down Name of Drag Down: ANITA Gomez Phone Number for Drag Down: [phone] Case Management Appointment Comment: [address], [address], [place] [address] Post Discharge Appointments Primary Care Physician Name Of Family Doctor: [facility] - Dr. Rin Blue [facility] Time of Appointment with PCP: Follow up as needed. Provider Appointment Comment: [address] [place] [address] Specialist Name of Specialist: [place] [facility] Phone Number for Specialist: Time of Appointment with Specialist: Return with your routine schedule Specialty Appointment Comment: [address], [place] [address] Contact Information Discharge Discharge Address: [place] [address] CPT Code CPT Code 99423 (1) Bipolar disorder Active/Remission status: currently active Current episode severity: severe Psychotic features: with psychotic features
[2018-12-10] MEDS: PRAZOSIN HCL 1 MG CAP PO SCH (21:05)
[2018-12-10] MEDS: MIRTAZAPINE SOLTAB 15 MG PO SCH (21:06)
[2018-12-11] MEDS: PANTOprazole 40 MG TAB PO SCH ×2 (09:35→21:02)
[2018-12-11] MEDS: METHADONE ORAL SOLN 2 MG/ML PO SCH (09:35)
[2018-12-11] MEDS: NICOTINE 14 MG/24 HR PATCH TD SCH (09:36)
[2018-12-11] MEDS: FERROUS SULFATE 325 MG TAB PO SCH ×2 (09:36→21:01)
[2018-12-11] MEDS: PATIENT'S OWN CONTROLLED MED PO SCH (09:36)
[2018-12-11] MEDS: FOLIC ACID 1 MG TAB PO SCH (09:36)
[2018-12-11] MEDS: HALOPERIDOL 5 MG TAB PO SCH ×3 (09:36→21:01)
[2018-12-11] MEDS: GABAPENTIN 600 MG TAB PO SCH ×3 (09:36→21:02)
[2018-12-11] MEDS: LORazepam 1 MG TAB PO PRN ×3 (11:47→21:03)
--- NOTE | 2018-12-11 13:01 | Psychiatric Progress Note ---
Date of Service December 11, 2018 Impression / Recommendations Impression 33-year-old female with a history of bipolar disorder type I and polysubstance abuse (heroin, now on methadone, recent IV methamphetamine, cannabis, and prescription medications and alcohol in the past) who presents with suicidality and predominant psychotic symptoms after she tried to jump out of a second story window at [facility]. She endorses constant auditory hallucinations of voices telling her that she is a bad person, has harmed children, and that she should kill herself or that other people are going to kill her. She has requested to return to Haldol, which has been beneficial in the past, and is improving and that hallucinations are less intense and she is better able to reality test. She is still poorly able to tolerate groups and isolates in her room. QTc prolongation has limited more rapid titration to therapeutic dosing. She has been noncompliant with psychiatric treatment, psychotropic medications, case management, and continues to abuse illicit drugs which worsens her condition. 304 inpatient commitment was granted on 12/06/18, with a plan to convert this to an involuntary outpatient commitment at the time of discharge, as she reports that this was helpful in the past to keep her in treatment. Pt continues to endorse auditory hallucinations and feeling unable to contract for safety outside of the inpatient setting. (1) Suicidal thoughts: 11/30 -patient endorsed suicidal thoughts in the ER, and had attempted to jump out of a second story window prior to presentation. Suicidality appears to be driven by psychosis at this point, with command auditory hallucinations telling her to end her life. -Medically necessary private room due to severity of symptoms and unpredictable, impulsive behavior. -Suicide checks for safety. 12/03 - Pt continuing to report she feels she is "not allowed to be alive" - intense guilt and remorse leading to ongoing SI. 12/08 -suicidality continues, but is lessening from admission. (2) Bipolar disorder: 11/30 -history of bipolar disorder with frequent psychotic episodes, exacerbated by ongoing substance abuse (cannabis, methamphetamine, possibly othe rs). -Current medications confirmed with outpatient records: Last discharged from our unit on Haldol Decanoate, but switched to aripiprazole by her outpatient psychiatrist in 07/2018 due to reports of sedation and weight gain. Will increase aripiprazole to 15 mg daily, and consider further increase to 30 mg daily if needed. If this is effective, she would benefit from the long-acting injectable Abilify Maintena. If ineffective, could consider short-term use of haloperidol which has been beneficial in the past. -Order fasting lipid profile and glucose for monitoring on an atypical antipsychotic. -Get collateral information from her mother or her outpatient clinicians. -Records reviewed from outpatient psychiatrist, Dr. Pina. She would benefit from a therapist and family caseworker. Consider the need for a 304 involuntary outpatient commitment. -Involve her in groups and therapy when she is able to tolerate them. 12/01 -increase aripiprazole to 30 mg daily for tomorrow. If effective, tra nsition to Maintena. Continue Haldol and Ativan as needed in the meantime. -Fasting glucose 59, cholesterol levels within normal. -Get collateral information as the patient is a very poor historian. -She is willing for re-referral for a blended case management. -File for 304 involuntary commitment, to transition to an involuntary outpatient commitment at the time of discharge. 12/02 maintained treatment plan unchanged 12/03 - Pt continues to verbalize desire to return to haldol decanoate injections - as she does not feel aripiprazole is beneficial - Will order haloperidol 5mg TID scheduled, as receiving 5-10mg daily as available prns; reducing aripiprazole to 15mg tomorrow morning and continuing to taper - If tolerating and improvement is noticeable - can receive decanoate injection on unit - PRN doses of benztropine remain available for any EPS/TD - 304 hearing scheduled fro 12/06 - with plan to eventually convert to 304 outpatient commitment 12/04 -appears sedated with restart Haldol, speed up Abilify taper to 5 mg BID, reviewed med list and receiving BID Ativan 2 mg prn and on methadone. Will begin benzo taper to 1 mg and monitor. Hold it and Haldol for excessive sedation discussed with staff. 12/05 --resume Haldol at 5 mg BID, continue decrease frequency of Ativan dosing. Stop Abilify given concerns about QTc (491 last evening), and medical necessity of Haldol. Repeat EKG this pm. Encourage fluids. 12/06 -Repeat EKG yesterday afternoon with continued prolonged QTC (504). Aripiprazole was stopped yesterday, will recheck QTC today and consider cardiology consult. Consider decreasing methadone dose if QTC does not normalize with elimination of the atypical antipsychotic. -Current Haldol dosing insufficient to control symptoms, but will hold off on titration for now given prolonged QTC and risk of arrhythmia. -304 hearing held today. Re-refer for a blended case management. We will need a family meeting with her mother when she is able to tolerate it. 12/07 - Continue current dosing of haloperidol with ongoing EKGs to monitor for QTc. Last evening's QTc was reduced to 484 - Recommendations received from [facility] to reduce methadone do se to 107mg for 4-5 days to ideally allow for QTc normalization - Will need to continue to assess aftercare/discharge planning 12/08 -QTC today 477. Methadone reduced as above. Continue haloperidol 5 mg twice daily for today, but consider dose increase tomorrow. 12/09 - PRN haloperidol 5mg was provided to patient yesterday afternoon - subsequently, dose was increased to 5mg TID scheduled - Repeat QTc today is 479. Will continue daily EKGs to monitor for QTc prolongation limiting more rapid titration of haloperidol - Consider need to further taper methadone - as recommended by [facility] - could consider reducing dose to 102mg after a few days if QTc remains prolonged - Will need to confirm current outpatient psychiatrist is able to manage patient on 304 outpatient commitment or refer accordingly to another provider 12/10 - Continue haloperidol 5mg TID, further titration as appropriate - Continue methadone 107mg tomorrow morning, recommend reducing to 102mg thereafter - QTc of 488 this morning, continue to monitor daily EKGs - As sedation has improved, will order lorazepam TID prn, given level of anxiety and concerns with more rapid titration of haloperidol to target symptoms 12/11 -Increase Haldol to 7.5 mg p.o. 3 times daily -Has Cogentin as needed available (3) Methamphetamine abuse: 11/30 -UDS positive, likely contributing to insomnia, mood instability, and psychosis. -Recovery protocol. -Coordinate with [facility] and outpatient psychiatrist. -We will review recommendations for inpatient rehab once less psychotic. -Avoid prescribing controlled substances given the severity of her addictions issues. We will discontinue zolpidem. (4) Heroin abuse: 11/30 -methadone dose confirmed with [facility]. Will need to inform them of her methamphetamine and cannabis use, and review plan for ongoing MAT prior to discharge. 12/07 - Communication with [facility] to discuss concerns related to QTC prolongation and methadone dose contributing to these concerns - Recommendation from Dr. Morataya is to slowly decrease methadone dose, starting with reduction by 5mg (107mg/day) for 4-5 days then re-evaluate - Will order for patient to receive 107mg dose starting tomorrow morning 12/11 -We will reduce methadone to 102 mg tomorrow as planned -We will continue EKGs every 3 days following stable QTc interval today (5) Cannabis abuse: Likely exacerbating psychotic symptoms. Once patient is less psychotic, will provide education about the risks of psychoactive substance abuse. (6) Hepatitis C: Avoid hepatotoxic agents Risk Factors Assessment Male: No : Yes Health Problems: Yes Mental Health Diagnoses: Yes Substance Use Disorders: Yes Previous Attempt: Yes Family History of Suicide: Yes Previous Psychiatric Hospitalization: Yes Smoker: Yes Protective Factors Assessment Tenriism Beliefs: No : No Responsible for Young Children: No (Lost custody of her children, has not seen them in months.) Employed: Yes ([employer]) Stable Relationships: No Good Rapport with Provider: No Interval History Identifying Information ELZBIETA CARTAGENA is a 33-year-old F who currently lives in [place], has a history of bipolar disorder with psychosis and polysubstance abuse (heroin, opiate pain medications, benzodiazepines, cannabis, methamphetamine), and was admitted on 11/30/18 00:43 on a 201 voluntary commitment for psychosis and command auditory hallucinations telling her to kill herself, after she removed a screen and attempted to jump out of a second story window at [facility]. Chief Complaint "I have delusions". Review of Systems Notes She denies cardiovascular or gastrointestinal complaints today. Sleep Information Total Hours of Sleep: 8.5 Sleep Comments: she came out to the kitchen to get a drink then back to bed/sleep Meal Information Percent Meal Consumed - Breakfast: 75 Percent Meal Consumed - Lunch: 75 Percent Meal Consumed - Dinner: 100 Nutrition Comment: pt. asleep. Meal dated, labeled and refrigerated. Snack and fluids at bedside. Subjective Subjective Patient was seen & assessed and interval progress reviewed with Treatment Team. Patient on 304 commitment. Remains in a private room. Paranoid. Depressed. She describes feeling very depressed today to the point that she did not feel like eating lunch. She does demonstrate improving insight regarding delusional thought content and reports that these thoughts are less intense and less distressing in last 24 hours. Auditory hallucinations are also diminished. She is agreeable to further titration of the Haldol. She denies side effects associated with Haldol so far. EKG showed a stable but still prolonged QTc interval today. Physical Exam Psychiatric Orientation: cooperative Apperance: + disheveled Eye Contact: + fair eye contact Motor Behavior: no abnormal motor movements Speech: normal rate/rhythm/volume of speech Affect: + depressed affect Mood: + depressed mood Thought Process: goal directed thought process Thought Content: + delusions Suicidal Thoughts: denies suicidal thoughts Hallucinations: + auditory hallucinations (Improving) Insight: + impaired insight Judgement: + impaired judgement Vital Signs (Past 24 Hours) Last Vital Signs Temp 36.7 C 12/11/18 06:52 Pulse 78 12/11/18 06:52 Resp 16 12/11/18 06:52 BP 87/59 L 12/11/18 06:52 Pulse Ox 95 11/30/18 01:39 Results & Data Current Inpatient Medications Current Inpatient Medications: Current Inpatient Medications Acetaminophen (Tylenol) 650 mg PO Q4H PRN PRN Reason: Headache or Minor Fever Stop: 12/30/18 01:26 Al Hydrox/Mg Hydrox/Simethicone (Maalox) 30 ml PO Q4H PRN PRN Reason: GI Upset Stop: 12/30/18 01:26 Albuterol (Ventolin Hfa) 2 puffs INH QID PRN PRN Reason: asthma Stop: 12/30/18 11:43 Benztropine Mesylate (Cogentin) 1 mg PO TID PRN PRN Reason: EPS Stop: 12/31/18 14:03 Last Admin: 12/01/18 15:04 Dose: 1 mg Documented by: Bismuth Subsalicylate (Kaopectate) 15 ml PO PRN PRN PRN Reason: Loose Stool Stop: 12/30/18 01:26 Ferrous Sulfate (Feosol) 325 mg PO BID [facility]IE Stop: 12/30/18 20:59 Last Admin: 12/11/18 09:36 Dose: 325 mg Documented by: Folic Acid (Folvite) 1 mg PO DAILY [facility] Stop: 12/31/18 08:59 Last Admin: 12/11/18 09:36 Dose: 1 mg Documented by: Gabapentin (Neurontin) 600 mg PO TID [facility] Stop: 12/30/18 08:59 Last Admin: 12/11/18 09:36 Dose: 600 mg Documented by: Haloperidol (Haldol) 5 mg PO TID [facility] Stop: 01/07/19 13:59 Last Admin: 12/11/18 09:36 Dose: 5 mg Documented by: Lorazepam (Ativan) 1 mg PO TID PRN PRN Reason: Anxiety/Agitation Stop: 01/04/19 10:02 Last Admin: 12/11/18 11:47 Dose: 1 mg Documented by: Lorazepam (Ativan) 2 mg IM BID PRN PRN Reason: Anxiety/Agitation Stop: 12/30/18 02:21 Magnesium Hydroxide (Milk Of Magnesia) 30 ml PO DAILY PRN PRN Reason: Heartburn Stop: 12/30/18 01:26 Methadone HCl (Methadone Hcl) 107 mg PO DAILY [facility] Stop: 12/22/18 08:59 Last Admin: 12/11/18 09:35 Dose: 107 mg Documented by: Mirtazapine (Remeron Solutab) 45 mg PO [facility] Stop: 12/30/18 21:59 Last Admin: 12/10/18 21:06 Dose: 45 mg Documented by: Nicotine (Nicoderm Cq) 14 mg TD QAM [facility] Stop: 12/30/18 08:59 Last Admin: 12/11/18 09:36 Dose: 14 mg Documented by: Nicotine Polacrilex (Nicorette 2mg) 1 piece MT UD PRN PRN Reason: Nicotine Withdrawal Stop: 12/30/18 01:26 Non-Formulary Medication (Patient's Own Controlled Med) 1 ea PO QAM [facility] Stop: 12/14/18 13:59 Last Admin: 12/11/18 09:36 Dose: Not Given Documented by: Pantoprazole Sodium (Protonix) 40 mg PO BID [facility] Stop: 12/30/18 08:59 Last Admin: 12/11/18 09:35 Dose: 40 mg Documented by: Prazosin HCl (Prazosin Hcl) 2 mg PO [facility] Stop: 12/30/18 21:59 Last Admin: 12/10/18 21:05 Dose: 2 mg Documented by: Sodium Chloride ([place] Nasal) 1 - 2 sprays NA PRN PRN PRN Reason: Nasal Dryness/Congestion Stop: 12/30/18 01:26 Mental Health & Subst Abuse Tx Psychiatrist Name of Psychiatrist: [facility] Date of Appointment with Psychiatrist: 12/21/18 Time of Appointment with Psychiatrist: 1:15 p.m. Psychiatric Appointment Comment: [address] [place] [address] Therapist Name of Therapist: [facility] - Intake with Love (ask to see Opal moving forward after the intake) Therapist's Date of Therapist Appointment: 12/24/18 Time of Therapist Appointment: 1:00 p.m. Therapy Appointment Comment: [address] [facility], [place] [id number] [employer] [place] Man Name of Tar Pot Man: ANITA Gomez Phone Number for Tar Pot Man: [phone] Case Management Appointment Comment: [address], [address], [place] [address] Post Discharge Appointments Primary Care Physician Name Of Family Doctor: Farhad Bolton - Dr. Rin Blue [facility] Time of Appointment with PCP: Follow up as needed. Provider Appointment Comment: [address] [place] [address] Specialist Name of Specialist: [place] [facility] Phone Number for Specialist: Time of Appointment with Specialist: Return with your routine schedule Specialty Appointment Comment: [address], [place] [address] Contact Information Discharge Discharge Address: [address] [place] [address] CPT Code CPT Code 64849 (1) Bipolar disorder Active/Remission status: currently active Current episode severity: severe Psychotic features: with psychotic features
[2018-12-11] MEDS: PRAZOSIN HCL 1 MG CAP PO SCH (21:03)
[2018-12-11] MEDS: MIRTAZAPINE SOLTAB 15 MG PO SCH (21:03)
[2018-12-12] MEDS: GABAPENTIN 600 MG TAB PO SCH ×3 (09:07→21:11)
[2018-12-12] MEDS: METHADONE ORAL SOLN 2 MG/ML PO SCH (09:07)
[2018-12-12] MEDS: HALOPERIDOL 5 MG TAB PO SCH ×3 (09:07→21:09)
[2018-12-12] MEDS: FOLIC ACID 1 MG TAB PO SCH (09:07)
[2018-12-12] MEDS: PANTOprazole 40 MG TAB PO SCH ×2 (09:07→21:12)
[2018-12-12] MEDS: FERROUS SULFATE 325 MG TAB PO SCH ×2 (09:07→21:09)
[2018-12-12] MEDS: PATIENT'S OWN CONTROLLED MED PO SCH (09:08)
[2018-12-12] MEDS: NICOTINE 14 MG/24 HR PATCH TD SCH (09:16)
[2018-12-12] MEDS ORDERED: CHLORASEPTIC 1.4% SOLN 180 ML BTL MT PRN (10:51)
[2018-12-12] MEDS: LORazepam 1 MG TAB PO PRN ×2 (14:09→21:16)
--- NOTE | 2018-12-12 15:10 | Psychiatric Progress Note ---
Date of Service December 12, 2018 Impression / Recommendations Impression 33-year-old female with a history of bipolar disorder type I and polysubstance abuse (heroin, now on methadone, recent IV methamphetamine, cannabis, and prescription medications and alcohol in the past) who presents with suicidality and predominant psychotic symptoms after she tried to jump out of a second story window at [facility]. She endorses constant auditory hallucinations of voices telling her that she is a bad person, has harmed children, and that she should kill herself or that other people are going to kill her. She has requested to return to Haldol, which has been beneficial in the past, and is improving and that hallucinations are less intense and she is better able to reality test. She is still poorly able to tolerate groups and isolates in her room. QTc prolongation has limited more rapid titration to therapeutic dosing. She has been noncompliant with psychiatric treatment, psychotropic medications, case management, and continues to abuse illicit drugs which worsens her condition. 304 inpatient commitment was granted on 12/06/18, with a plan to convert this to an involuntary outpatient commitment at the time of discharge, as she reports that this was helpful in the past to keep her in treatment. Pt continues to endorse auditory hallucinations and feeling unable to contract for safety outside of the inpatient setting. (1) Suicidal thoughts: 11/30 -patient endorsed suicidal thoughts in the ER, and had attempted to jump out of a second story window prior to presentation. Suicidality appears to be driven by psychosis at this point, with command auditory hallucinations telling her to end her life. -Medically necessary private room due to severity of symptoms and unpredictable, impulsive behavior. -Suicide checks for safety. 12/03 - Pt continuing to report she feels she is "not allowed to be alive" - intense guilt and remorse leading to ongoing SI. 12/08 -suicidality continues, but is lessening from admission. (2) Bipolar disorder: 11/30 -history of bipolar disorder with frequent psychotic episodes, exacerbated by ongoing substance abuse (cannabis, methamphetamine, possibly othe rs). -Current medications confirmed with outpatient records: Last discharged from our unit on Haldol Decanoate, but switched to aripiprazole by her outpatient psychiatrist in 07/2018 due to reports of sedation and weight gain. Will increase aripiprazole to 15 mg daily, and consider further increase to 30 mg daily if needed. If this is effective, she would benefit from the long-acting injectable Abilify Maintena. If ineffective, could consider short-term use of haloperidol which has been beneficial in the past. -Order fasting lipid profile and glucose for monitoring on an atypical antipsychotic. -Get collateral information from her mother or her outpatient clinicians. -Records reviewed from outpatient psychiatrist, Dr. Pina. She would benefit from a therapist and top case assembler. Consider the need for a 304 involuntary outpatient commitment. -Involve her in groups and therapy when she is able to tolerate them. 12/01 -increase aripiprazole to 30 mg daily for tomorrow. If effective, tra nsition to Maintena. Continue Haldol and Ativan as needed in the meantime. -Fasting glucose 59, cholesterol levels within normal. -Get collateral information as the patient is a very poor historian. -She is willing for re-referral for a blended case management. -File for 304 involuntary commitment, to transition to an involuntary outpatient commitment at the time of discharge. 12/02 maintained treatment plan unchanged 12/03 - Pt continues to verbalize desire to return to haldol decanoate injections - as she does not feel aripiprazole is beneficial - Will order haloperidol 5mg TID scheduled, as receiving 5-10mg daily as available prns; reducing aripiprazole to 15mg tomorrow morning and continuing to taper - If tolerating and improvement is noticeable - can receive decanoate injection on unit - PRN doses of benztropine remain available for any EPS/TD - 304 hearing scheduled fro 12/06 - with plan to eventually convert to 304 outpatient commitment 12/04 -appears sedated with restart Haldol, speed up Abilify taper to 5 mg BID, reviewed med list and receiving BID Ativan 2 mg prn and on methadone. Will begin benzo taper to 1 mg and monitor. Hold it and Haldol for excessive sedation discussed with staff. 12/05 --resume Haldol at 5 mg BID, continue decrease frequency of Ativan dosing. Stop Abilify given concerns about QTc (491 last evening), and medical necessity of Haldol. Repeat EKG this pm. Encourage fluids. 12/06 -Repeat EKG yesterday afternoon with continued prolonged QTC (504). Aripiprazole was stopped yesterday, will recheck QTC today and consider cardiology consult. Consider decreasing methadone dose if QTC does not normalize with elimination of the atypical antipsychotic. -Current Haldol dosing insufficient to control symptoms, but will hold off on titration for now given prolonged QTC and risk of arrhythmia. -304 hearing held today. Re-refer for a blended case management. We will need a family meeting with her mother when she is able to tolerate it. 12/07 - Continue current dosing of haloperidol with ongoing EKGs to monitor for QTc. Last evening's QTc was reduced to 484 - Recommendations received from [facility] to reduce methadone do se to 107mg for 4-5 days to ideally allow for QTc normalization - Will need to continue to assess aftercare/discharge planning 12/08 -QTC today 477. Methadone reduced as above. Continue haloperidol 5 mg twice daily for today, but consider dose increase tomorrow. 12/09 - PRN haloperidol 5mg was provided to patient yesterday afternoon - subsequently, dose was increased to 5mg TID scheduled - Repeat QTc today is 479. Will continue daily EKGs to monitor for QTc prolongation limiting more rapid titration of haloperidol - Consider need to further taper methadone - as recommended by [facility] - could consider reducing dose to 102mg after a few days if QTc remains prolonged - Will need to confirm current outpatient psychiatrist is able to manage patient on 304 outpatient commitment or refer accordingly to another provider 12/10 - Continue haloperidol 5mg TID, further titration as appropriate - Continue methadone 107mg tomorrow morning, recommend reducing to 102mg thereafter - QTc of 488 this morning, continue to monitor daily EKGs - As sedation has improved, will order lorazepam TID prn, given level of anxiety and concerns with more rapid titration of haloperidol to target symptoms 12/11 -Increase Haldol to 7.5 mg p.o. 3 times daily -Has Cogentin as needed available 12/12 Tolerating increased Haldol well so far. (3) Methamphetamine abuse: 11/30 -UDS positive, likely contributing to insomnia, mood instability, and psychosis. -Recovery protocol. -Coordinate with [facility] and outpatient psychiatrist. -We will review recommendations for inpatient rehab once less psychotic. -Avoid prescribing controlled substances given the severity of her addictions issues. We will discontinue zolpidem. (4) Heroin abuse: 11/30 -methadone dose confirmed with [facility]. Will need to inform them of her methamphetamine and cannabis use, and review plan for ongoing MAT prior to discharge. 12/07 - Communication with [facility] to discuss concerns related to QTC prolongation and methadone dose contributing to these concerns - Recommendation from Dr. Morataya is to slowly decrease methadone dose, starting with reduction by 5mg (107mg/day) for 4-5 days then re-evaluate - Will order for patient to receive 107mg dose starting tomorrow morning 12/11 -We will reduce methadone to 102 mg tomorrow as planned -We will continue EKGs every 3 days following stable QTc interval today 12/12 Methadone decreased this morning. Watch for signs of mild withdrawal (5) Cannabis abuse: Likely exacerbating psychotic symptoms. Once patient is less psychotic, will provide education about the risks of psychoactive substance abuse. (6) Hepatitis C: Avoid hepatotoxic agents Risk Factors Assessment Male: No : Yes Health Problems: Yes Mental Health Diagnoses: Yes Substance Use Disorders: Yes Previous Attempt: Yes Family History of Suicide: Yes Previous Psychiatric Hospitalization: Yes Smoker: Yes Protective Factors Assessment Orthodoxy Beliefs: No : No Responsible for Young Children: No (Lost custody of her children, has not seen them in months.) Employed: Yes ([employer]) Stable Relationships: No Good Rapport with Provider: No Interval History Identifying Information ELZBIETA CARTAGENA is a 33-year-old F who currently lives in [place], has a history of bipolar disorder with psychosis and polysubstance abuse (heroin, opiate pain medications, benzodiazepines, cannabis, methamphetamine), and was admitted on 11/30/18 00:43 on a 201 voluntary commitment for psychosis and command auditory hallucinations telling her to kill herself, after she removed a screen and attempted to jump out of a second story window at [facility]. Chief Complaint "A little better". Review of Systems Notes No fever. Reports mild sore throat without shortness of breath, cough, GI complaints. Sleep Information Total Hours of Sleep: 9 Sleep Comments: she came out to the kitchen to get a drink then back to bed/sleep Meal Information Percent Meal Consumed - Breakfast: 50 Percent Meal Consumed - Lunch: 0 Percent Meal Consumed - Dinner: 10 Nutrition Comment: pt. asleep. Meal dated, labeled and refrigerated. Snack and fluids at bedside. Subjective Subjective Patient was seen & assessed and interval progress reviewed with Treatment Team. Per staff patient still appearing paranoid but with improving insight. Attending groups. Continues to require prompting for personal care. On interview she describes subjectively interval improvement in delusional thought content. She denies concern for side effects on increased Haldol so far. She does complain of a slight sore throat and a vague sense of feeling "a little sick or something" this morning which does not feel like withdrawal to her. Physical Exam Psychiatric Orientation: alert and cooperative Apperance: + disheveled Eye Contact: good eye contact Motor Behavior: no abnormal motor movements Speech: normal rate/rhythm/volume of speech Affect: + anxious affect "A little better" Thought Process: goal directed thought process and + concrete thought process Thought Content: + delusions Suicidal Thoughts: denies suicidal thoughts Hallucinations: + auditory hallucinations Insight: + impaired insight Judgement: + impaired judgement Vital Signs (Past 24 Hours) Last Vital Signs Temp 36.7 C 12/12/18 06:34 Pulse 72 12/12/18 06:34 Resp 14 12/12/18 06:34 BP 87/53 L 12/12/18 06:34 Pulse Ox 95 11/30/18 01:39 Results & Data Current Inpatient Medications Current Inpatient Medications: Current Inpatient Medications Acetaminophen (Tylenol) 650 mg PO Q4H PRN PRN Reason: Headache or Minor Fever Stop: 12/30/18 01:26 Last Admin: 12/11/18 16:39 Dose: 650 mg Documented by: Al Hydrox/Mg Hydrox/Simethicone (Maalox) 30 ml PO Q4H PRN PRN Reason: GI Upset Stop: 12/30/18 01:26 Albuterol (Ventolin Hfa) 2 puffs INH QID PRN PRN Reason: asthma Stop: 12/30/18 11:43 Benztropine Mesylate (Cogentin) 1 mg PO TID PRN PRN Reason: EPS Stop: 12/31/18 14:03 Last Admin: 12/01/18 15:04 Dose: 1 mg Documented by: Bismuth Subsalicylate (Kaopectate) 15 ml PO PRN PRN PRN Reason: Loose Stool Stop: 12/30/18 01:26 Ferrous Sulfate (Feosol) 325 mg PO BID BRODIE Stop: 12/30/18 20:59 Last Admin: 12/12/18 09:07 Dose: 325 mg Documented by: Folic Acid (Folvite) 1 mg PO DAILY BRODIE Stop: 12/31/18 08:59 Last Admin: 12/12/18 09:07 Dose: 1 mg Documented by: Gabapentin (Neurontin) 600 mg PO TID BRODIE Stop: 12/30/18 08:59 Last Admin: 12/12/18 14:46 Dose: 600 mg Documented by: Haloperidol (Haldol) 7.5 mg PO TID BRODIE Stop: 01/10/19 13:59 Last Admin: 12/12/18 14:11 Dose: 7.5 mg Documented by: Lorazepam (Ativan) 1 mg PO TID PRN PRN Reason: Anxiety/Agitation Stop: 01/04/19 10:02 Last Admin: 12/12/18 14:09 Dose: 1 mg Documented by: Lorazepam (Ativan) 2 mg IM BID PRN PRN Reason: Anxiety/Agitation Stop: 12/30/18 02:21 Magnesium Hydroxide (Milk Of Magnesia) 30 ml PO DAILY PRN PRN Reason: Heartburn Stop: 12/30/18 01:26 Methadone HCl (Methadone Hcl) 102 mg PO DAILY [facility] Stop: 12/26/18 08:59 Last Admin: 12/12/18 09:07 Dose: 102 mg Documented by: Mirtazapine (Remeron Solutab) 45 mg PO HS [facility] Stop: 12/30/18 21:59 Last Admin: 12/11/18 21:03 Dose: 45 mg Documented by: Nicotine (Nicoderm Cq) 14 mg TD QAM [facility] Stop: 12/30/18 08:59 Last Admin: 12/12/18 09:16 Dose: 14 mg Documented by: Nicotine Polacrilex (Nicorette 2mg) 1 piece MT UD PRN PRN Reason: Nicotine Withdrawal Stop: 12/30/18 01:26 Non-Formulary Medication (Patient's Own Controlled Med) 1 ea PO QAM [facility] Stop: 12/14/18 13:59 Last Admin: 12/12/18 09:08 Dose: Not Given Documented by: Pantoprazole Sodium (Protonix) 40 mg PO BID [facility] Stop: 12/30/18 08:59 Last Admin: 12/12/18 09:07 Dose: 40 mg Documented by: Phenol (Chloraseptic 1.4% Winston) 3 sprays MT QID PRN PRN Reason: Sore Throat Stop: 01/11/19 10:50 Prazosin HCl (Prazosin Hcl) 2 mg PO HS BRODIE Stop: 12/30/18 21:59 Last Admin: 12/11/18 21:03 Dose: 2 mg Documented by: Sodium Chloride ([place] Nasal) 1 - 2 sprays NA PRN PRN PRN Reason: Nasal Dryness/Congestion Stop: 12/30/18 01:26 Mental Health & Subst Abuse Tx Psychiatrist Name of Psychiatrist: [facility] - Intake with Love (will schedule after intake) Psychiatrist's Date of Appointment with Psychiatrist: 12/21/18 Time of Appointment with Psychiatrist: 1:15 p.m. Psychiatric Appointment Comment: [address] [place] [address] Therapist Name of Therapist: [facility] - Intake with Love (ask to see Opal moving forward after the intake) Therapist's Date of Therapist Appointment: 12/24/18 Time of Therapist Appointment: 1:00 p.m. Therapy Appointment Comment: [address] [place] [address] Biology Professor Name of Biology Professor: ANITA Gomez Phone Number for Biology Professor: [phone] Case Management Appointment Comment: [address], [address], [place] [address] Post Discharge Appointments Primary Care Physician Name Of Family Doctor: [facility] - Dr. Rin Blue [facility] Time of Appointment with PCP: Follow up as needed. Provider Appointment Comment: [address] [place] [address] Specialist Name of Specialist: [facility] Phone Number for Specialist: Time of Appointment with Specialist: Return with your routine schedule Specialty Appointment Comment: [address], [place] [address] Contact Information Discharge Discharge Address: [address] [place] [address] CPT Code CPT Code 33654 (1) Bipolar disorder Active/Remission status: currently active Current episode severity: severe Psychotic features: with psychotic features
[2018-12-12] MEDS: MIRTAZAPINE SOLTAB 15 MG PO SCH (21:12)
[2018-12-12] MEDS: PRAZOSIN HCL 1 MG CAP PO SCH (21:12)
[2018-12-13] MEDS: HALOPERIDOL 5 MG TAB PO SCH ×3 (09:30→21:53)
[2018-12-13] MEDS: FERROUS SULFATE 325 MG TAB PO SCH ×2 (09:30→21:54)
[2018-12-13] MEDS: FOLIC ACID 1 MG TAB PO SCH (09:30)
[2018-12-13] MEDS: GABAPENTIN 600 MG TAB PO SCH ×3 (09:31→21:53)
[2018-12-13] MEDS: PANTOprazole 40 MG TAB PO SCH ×2 (09:31→21:52)
[2018-12-13] MEDS: METHADONE ORAL SOLN 2 MG/ML PO SCH (09:35)
[2018-12-13] MEDS: PATIENT'S OWN CONTROLLED MED PO SCH (09:35)
[2018-12-13] MEDS: NICOTINE 14 MG/24 HR PATCH TD SCH (09:42)
[2018-12-13] MEDS: LORazepam 1 MG TAB PO PRN (12:08)
[2018-12-13] MEDS: NICOTINE POLACRILEX 2 MG GUM MT PRN (13:28)
--- NOTE | 2018-12-13 17:53 | Psychiatric Progress Note ---
Date of Service December 13, 2018 Impression / Recommendations Impression 33-year-old female with a history of bipolar disorder type I and polysubstance abuse (heroin, now on methadone, recent IV methamphetamine, cannabis, and prescription medications and alcohol in the past) who presents with suicidality and predominant psychotic symptoms after she tried to jump out of a second story window at [facility]. She had endorsed auditory hallucinations of voices telling her that she is a bad person, has harmed children, and that she should kill herself or that other people are going to kill her. Since titrating Haldol to 7.5mg TID, the patient reports resolution of these hallucinations. Pt remains interested in receiving Haldol Dec prior to discharge - and if dose remains effective, this can be discussed soon. 304 inpatient commitment was granted on 12/06/18, with a plan to convert this to an involuntary outpatient commitment at the time of discharge, as she reports that this was helpful in the past to keep her in treatment. Pt continues to endorse auditory hallucinations and feeling unable to contract for safety outside of the inpatient setting. (1) Suicidal thoughts: 11/30 -patient endorsed suicidal thoughts in the ER, and had attempted to jump out of a second story window prior to presentation. Suicidality appears to be driven by psychosis at this point, with command auditory hallucinations telling her to end her life. -Medically necessary private room due to severity of symptoms and unpredictable, impulsive behavior. -Suicide checks for safety. 12/03 - Pt continuing to report she feels she is "not allowed to be alive" - intense guilt and remorse leading to ongoing SI. 12/08 -suicidality continues, but is lessening from admission. (2) Bipolar disorder: 11/30 -history of bipolar disorder with frequent psychotic episodes, exacerbated by ongoing substance abuse (cannabis, methamphetamine, possibly others). -Current medications confirmed with outpatient records: Last discharged from our unit on Haldol Decanoate, but switched to aripiprazole by her outpatient psychiatrist in 07/2018 due to reports of sedation and weight gain. Will increase aripiprazole to 15 mg daily, and consider further increase to 30 mg daily if needed. If this is effective, she would benefit from the long-acting injectable Abilify Maintena. If ineffective, could consider short-term use of haloperidol which has been beneficial in the past. -Order fasting lipid profile and glucose for monitoring on an atypical antipsychotic. -Get collateral information from her mother or her outpatient clinicians. -Records reviewed from outpatient psychiatrist, Dr. Pina. She would benefit from a therapist and case reviewer. Consider the need for a 304 involuntary outpatient commitment. -Involve her in groups and therapy when she is able to tolerate them. 12/01 -increase aripiprazole to 30 mg daily for tomorrow. If effective, [facility] to [facility]. Continue Haldol and Ativan as needed in the meantime. -Fasting glucose 59, cholesterol levels within normal. -Get collateral information as the patient is a very poor historian. -She is willing for re-referral for a blended case management. -File for 304 involuntary commitment, to transition to an involuntary outpatient commitment at the time of discharge. 12/02 maintained treatment plan unchanged 12/03 - Pt continues to verbalize desire to return to haldol decanoate injections - as she does not feel aripiprazole is beneficial - Will order haloperidol 5mg TID scheduled, as receiving 5-10mg daily as available prns; reducing aripiprazole to 15mg tomorrow morning and continuing to taper - If tolerating and improvement is noticeable - can receive decanoate injection on unit - PRN doses of benztropine remain available for any EPS/TD - 304 hearing scheduled fro 12/06 - with plan to eventually convert to 304 outpatient commitment 12/04 -appears sedated with restart Haldol, speed up Abilify taper to 5 mg BID, reviewed med list and receiving BID Ativan 2 mg prn and on methadone. Will begin benzo taper to 1 mg and monitor. Hold it and Haldol for excessive sedation discussed with staff. 12/05 --resume Haldol at 5 mg BID, continue decrease frequency of Ativan dosing. Stop Abilify given concerns about QTc (491 last evening), and medical necessity of Haldol. Repeat EKG this pm. Encourage fluids. 12/06 -Repeat EKG yesterday afternoon with continued prolonged QTC (504). Aripiprazole was stopped yesterday, will recheck QTC today and consider cardiology consult. Consider decreasing methadone dose if QTC does not normalize with elimination of the atypical antipsychotic. -Current Haldol dosing insufficient to control symptoms, but will hold off on titration for now given prolonged QTC and risk of arrhythmia. -304 hearing held today. Re-refer for a blended case management. We will need a family meeting with her mother when she is able to tolerate it. 12/07 - Continue current dosing of haloperidol with ongoing EKGs to monitor for QTc. Last evening's QTc was reduced to 484 - Recommendations received from [facility] to reduce methadone dose to 107mg for 4-5 days to ideally allow for QTc normalization - Will need to continue to assess aftercare/discharge planning 12/08 -QTC today 477. Methadone reduced as above. Continue haloperidol 5 mg twice daily for today, but consider dose increase tomorrow. 12/09 - PRN haloperidol 5mg was provided to patient yesterday afternoon - subsequently, dose was increased to 5mg TID scheduled - Repeat QTc today is 479. Will continue daily EKGs to monitor for QTc pro longation limiting more rapid titration of haloperidol - Consider need to further taper methadone - as recommended by [facility] - could consider reducing dose to 102mg after a few days if QTc remains prolonged - Will need to confirm current outpatient psychiatrist is able to manage patient on 304 outpatient commitment or refer accordingly to another provider 12/10 - Continue haloperidol 5mg TID, further titration as appropriate - Continue methadone 107mg tomorrow morning, recommend reducing to 102mg thereafter - QTc of 488 this morning, continue to monitor daily EKGs - As sedation has improved, will order lorazepam TID prn, given level of anxiety and concerns with more rapid titration of haloperidol to target symptoms 12/11 -Increase Haldol to 7.5 mg p.o. 3 times daily -Has Cogentin as needed available 12/12 Tolerating increased Haldol well so far. 12/13 - Continue Haldol at 7.5mg TID, as patient feels it has been an effective dose for her auditory hallucinations - If dosage remains effective, consider timing of conversion to Haldol Dec - QTc today was 475; continue methadone at 102mg daily - Reviewed that patient will not receive lorazepam on discharge, and as anxiety is improving suggested taper. Pt was agreeable to tapering to 1mg BID prn. (3) Methamphetamine abuse: 11/30 -UDS positive, likely contributing to insomnia, mood instability, and psychosis. -Recovery protocol. -Coordinate with [facility] and outpatient psychiatrist. -We will review recommendations for inpatient rehab once less psychotic. -Avoid prescribing controlled substances given the severity of her addictions issues. We will discontinue zolpidem. (4) Heroin abuse: 11/30 -methadone dose confirmed with [facility]. Will need to inform them of her methamphetamine and cannabis use, and review plan for ongoing MAT prior to discharge. 12/07 - Communication with [facility] to discuss concerns related to QTC prolongation and methadone dose contributing to these concerns - Recommendation from Dr. Morataya is to slowly decrease methadone dose, starting with reduction by 5mg (107mg/day) for 4-5 days then re-evaluate - Will order for patient to receive 107mg dose starting tomorrow morning 12/11 -We will reduce methadone to 102 mg tomorrow as planned -We will continue EKGs every 3 days following stable QTc interval today 12/12 Methadone decreased this morning. Watch for signs of mild withdrawal (5) Cannabis abuse: Likely exacerbating psychotic symptoms. Once patient is less psychotic, will provide education about the risks of psychoactive substance abuse. (6) Hepatitis C: Avoid hepatotoxic agents Risk Factors Assessment Male: No : Yes Health Problems: Yes Mental Health Diagnoses: Yes Substance Use Disorders: Yes Previous Attempt: Yes Family History of Suicide: Yes Previous Psychiatric Hospitalization: Yes Smoker: Yes Protective Factors Assessment L[employer]-Day Beliefs: No : No Responsible for Young Children: No (Lost custody of her children, has not seen them in months.) Employed: Yes ([employer]) Stable Relationships: No Good Rapport with Provider: No Interval History Identifying Information ELZBIETA CARTAGENA is a 33-year-old F who currently lives in [place], has a history of bipolar disorder with psychosis and polysubstance abuse (heroin, opiate pain medications, benzodiazepines, cannabis, methamphetamine), and was admitted on 11/30/18 00:43 on a 201 voluntary commitment for psychosis and command auditory hallucinations telling her to kill herself, after she removed a screen and attempted to jump out of a second story window at [facility] [employer]. Chief Complaint "Pretty good. I think we found a pretty happy medium, in my opinion." Review of Systems Notes Constitutional: reports improvement in level of fatigue Cardiovascular: denied Respiratory: denied Gastrointestinal: denied Neurological: denied Psychiatric: denies symptoms other than stated above Total of at least 10 systems reviewed, pertinent positives as above and in HPI. Sleep Information Total Hours of Sleep: 7.5 Sleep Comments: she came out to the kitchen to get a drink then back to bed/sleep Meal Information Percent Meal Consumed - Breakfast: 100 Percent Meal Consumed - Lunch: 50 Percent Meal Consumed - Dinner: 100 Nutrition Comment: pt. asleep. Meal dated, labeled and refrigerated. Snack and fluids at bedside. Subjective Subjective Patient was seen & assessed and interval progress reviewed with Treatment Team. Staff reports patient has been more appropriate in groups, attending most sessions last evening. Pt was seen today to assess progress since admission. Pt states she is feeling "pretty good" today, reporting improvement over the weekend. Pt was asked about her auditory hallucinations, which she states were reduced drastically over the weekend. Pt cannot acknowledge an episode of auditory hallucinations in over 1 day. Pt states, "I think we've found a happy medium, in my opinion." Pt states she is pleased that the voices have resolved, but also feels that she is not "overly tired or as anxious anymore." Pt remains agreeable to converting to Haldol Dec to ensure medication compliance. This provider encouraged patient to consider reducing her use of prn lorazepam, as she had reported improvement in anxiety. After a mildly drawn out discussion, patient was accepting of this provider's reports that lorazepam would not be continued on discharge. Pt was eventually understanding and was agreeable to reducing her lorazepam to BID prn with plans to continue taper during the remainder of her stay. 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 Physical Exam Psychiatric Orientation: alert, oriented x 3 and cooperative Apperance: appropriately dressed (casually in t-shirt and sweatpants) and + disheveled Eye Contact: good eye contact Motor Behavior: steady gait and station and no abnormal motor movements Speech: normal rate/rhythm/volume of speech (some persistent slurred speech) Affect: + blunted affect; no depressed affect and no anxious affect "Pretty good" and "feeling a lot better" Thought Process: goal directed thought process and clear/coherent thought pro cess Thought Content: reality based without delusions Suicidal Thoughts: denies suicidal thoughts and denies suicidal plan Homicidal Thoughts: denies homicidal thoughts Hallucinations: no auditory hallucinations and no visual hallucinations Cognition: attention grossly intact and language grossly intact Estimated Intelligence: consistent with education level Insight: + limited insight Judgement: + limited judgement Vital Signs (Past 24 Hours) Last Vital Signs Temp 36.6 C 12/13/18 07:02 Pulse 83 12/13/18 07:03 Resp 16 12/13/18 07:02 BP 80/59 L 12/13/18 07:03 Pulse Ox 95 11/30/18 01:39 Results & Data Current Inpatient Medications Current Inpatient Medications: Current Inpatient Medications Acetaminophen (Tylenol) 650 mg PO Q4H PRN PRN Reason: Headache or Minor Fever Stop: 12/30/18 01:26 Last Admin: 12/11/18 16:39 Dose: 650 mg Documented by: Al Hydrox/Mg Hydrox/Simethicone (Maalox) 30 ml PO Q4H PRN PRN Reason: GI Upset Stop: 12/30/18 01:26 Albuterol (Ventolin Hfa) 2 puffs INH QID PRN PRN Reason: asthma Stop: 12/30/18 11:43 Benztropine Mesylate (Cogentin) 1 mg PO TID PRN PRN Reason: EPS Stop: 12/31/18 14:03 Last Admin: 12/01/18 15:04 Dose: 1 mg Documented by: Bismuth Subsalicylate (Kaopectate) 15 ml PO PRN PRN PRN Reason: Loose Stool Stop: 12/30/18 01:26 Ferrous Sulfate (Feosol) 325 mg PO BID [facility] Stop: 12/30/18 20:59 Last Admin: 12/13/18 09:30 Dose: 325 mg Documented by: Folic Acid (Folvite) 1 mg PO DAILY [facility] Stop: 12/31/18 08:59 Last Admin: 12/13/18 09:30 Dose: 1 mg Documented by: Gabapentin (Neurontin) 600 mg PO TID [facility] Stop: 12/30/18 08:59 Last Admin: 12/13/18 13:28 Dose: 600 mg Documented by: Haloperidol (Haldol) 7.5 mg PO TID [facility] Stop: 01/10/19 13:59 Last Admin: 12/13/18 13:28 Dose: 7.5 mg Documented by: Lorazepam (Ativan) 1 mg PO TID PRN PRN Reason: Anxiety/Agitation Stop: 01/04/19 10:02 Last Admin: 12/13/18 12:08 Dose: 1 mg Documented by: Lorazepam (Ativan) 2 mg IM BID PRN PRN Reason: Anxiety/Agitation Stop: 12/30/18 02:21 Magnesium Hydroxide (Milk Of Magnesia) 30 ml PO DAILY PRN PRN Reason: Heartburn Stop: 12/30/18 01:26 Methadone HCl (Methadone Hcl) 102 mg PO DAILY [facility]IE Stop: 12/26/18 08:59 Last Admin: 12/13/18 09:35 Dose: 102 mg Documented by: Mirtazapine (Remeron Solutab) 45 mg PO HS [facility] Stop: 12/30/18 21:59 Last Admin: 12/12/18 21:12 Dose: 45 mg Documented by: Nicotine (Nicoderm Cq) 14 mg TD QAM [facility] Stop: 12/30/18 08:59 Last Admin: 12/13/18 09:42 Dose: 14 mg Documented by: Nicotine Polacrilex (Nicorette 2mg) 1 piece MT UD PRN PRN Reason: Nicotine Withdrawal Stop: 12/30/18 01:26 Last Admin: 12/13/18 13:28 Dose: 1 piece Documented by: Non-Formulary Medication (Patient's Own Controlled Med) 1 ea PO QAM [facility] Stop: 12/14/18 13:59 Last Admin: 12/13/18 09:35 Dose: Not Given Documented by: Pantoprazole Sodium (Protonix) 40 mg PO BID [facility] Stop: 12/30/18 08:59 Last Admin: 12/13/18 09:31 Dose: 40 mg Documented by: Phenol (Chloraseptic 1.4% [place]) 3 sprays MT QID PRN PRN Reason: Sore Throat Stop: 01/11/19 10:50 Prazosin HCl (Prazosin Hcl) 2 mg PO [facility] Stop: 12/30/18 21:59 Last Admin: 12/12/18 21:12 Dose: 2 mg Documented by: Sodium Chloride ([place]in[place] Nasal) 1 - 2 sprays NA PRN PRN PRN Reason: Nasal Dryness/Congestion Stop: 12/30/18 01:26 Mental Health & Subst Abuse Tx Psychiatrist Name of Psychiatrist: [facility] - Intake with Love (will schedule after intake) Psychiatrist's Date of Appointment with Psychiatrist: 12/21/18 Time of Appointment with Psychiatrist: 1:15 p.m. Psychiatric Appointment Comment: [address] [place] [address] Therapist Name of Therapist: [facility] - Intake with Love (ask to see Opal moving forward after the intake) Therapist's Date of Therapist Appointment: 12/24/18 Time of Therapist Appointment: 1:00 p.m. Therapy Appointment Comment: [address] [facility], [place] [id number] Schedule Announcer Name of Schedule Announcer: ANITA Gomez Phone Number for Schedule Announcer: [phone] Case Management Appointment Comment: [address], [address], [place] [address] Post Discharge Appointments Primary Care Physician Name Of Family Doctor: [facility] - Dr. Rin Blue [facility] Time of Appointment with PCP: Follow up as needed. Provider Appointment Comment: [address] [place] [address] Specialist Name of Specialist: [facility] Phone Number for Specialist: Time of Appointment with Specialist: Return with your routine schedule Specialty Appointment Comment: [address], [place] [address] Contact Information Discharge Discharge Address: [address] [place] [address] CPT Code CPT Code 59285 (1) Bipolar disorder Active/Remission status: currently active Current episode severity: severe Psychotic features: with psychotic features
[2018-12-13] MEDS: MIRTAZAPINE SOLTAB 15 MG PO SCH (21:50)
[2018-12-13] MEDS: PRAZOSIN HCL 1 MG CAP PO SCH (21:51)
[2018-12-14] MEDS: FERROUS SULFATE 325 MG TAB PO SCH ×2 (09:12→21:14)
[2018-12-14] MEDS: FOLIC ACID 1 MG TAB PO SCH (09:13)
[2018-12-14] MEDS: HALOPERIDOL 5 MG TAB PO SCH ×3 (09:13→21:14)
[2018-12-14] MEDS: NICOTINE 14 MG/24 HR PATCH TD SCH (09:14)
[2018-12-14] MEDS: GABAPENTIN 600 MG TAB PO SCH ×3 (09:14→21:16)
[2018-12-14] MEDS: METHADONE ORAL SOLN 2 MG/ML PO SCH (09:14)
[2018-12-14] MEDS: PATIENT'S OWN CONTROLLED MED PO SCH (09:15)
[2018-12-14] MEDS: PANTOprazole 40 MG TAB PO SCH ×2 (09:15→21:16)
[2018-12-14] MEDS: LORazepam 1 MG TAB PO PRN ×2 (13:36→21:19)
--- NOTE | 2018-12-14 14:20 | Psychiatric Progress Note ---
Date of Service December 14, 2018 Impression / Recommendations Impression 33-year-old female with a history of bipolar disorder type I and polysubstance abuse (heroin, now on methadone, recent IV methamphetamine, cannabis, and prescription medications and alcohol in the past) who presents with suicidality and predominant psychotic symptoms after she tried to jump out of a second story window at [facility]. She had endorsed auditory hallucinations of voices telling her that she is a bad person, has harmed children, and that she should kill herself or that other people are going to kill her. Since titrating Haldol to 7.5mg TID, the patient reports resolution of these hallucinations. Pt remains interested in receiving Haldol Dec prior to discharge - and if dose remains effective, this can be discussed soon. 304 inpatient commitment was granted on 12/06/18, with a plan to convert this to an involuntary outpatient commitment at the time of discharge, as she reports that this was helpful in the past to keep her in treatment. Pt requires additional attention related to medication adjustments and her aftercare. Without proper arrangements prior to discharge, she is at high risk of decompensation and either rapid readmission or possible harm to herself or others. Ongoing inpatient psychiatric treatment remains medically necessary. (1) Suicidal thoughts: 11/30 -patient endorsed suicidal thoughts in the ER, and had attempted to j ump out of a second story window prior to presentation. Suicidality appears to be driven by psychosis at this point, with command auditory hallucinations telling her to end her life. -Medically necessary private room due to severity of symptoms and unpredictable, impulsive behavior. -Suicide checks for safety. 12/03 - Pt continuing to report she feels she is "not allowed to be alive" - intense guilt and remorse leading to ongoing SI. 12/08 -suicidality continues, but is lessening from admission. (2) Bipolar disorder: 11/30 -history of bipolar disorder with frequent psychotic episodes, exacerbated by ongoing substance abuse (cannabis, methamphetamine, possibly others). -Current medications confirmed with outpatient records: Last discharged from our unit on Haldol Decanoate, but switched to aripiprazole by her outpatient psychiatrist in 07/2018 due to reports of sedation and weight gain. Will increase aripiprazole to 15 mg daily, and consider further increase to 30 mg daily if needed. If this is effective, she would benefit from the long-acting injectable Abilify Maintena. If ineffective, could consider short-term use of haloperidol which has been beneficial in the past. -Order fasting lipid profile and glucose for monitoring on an atypical antipsychotic. -Get collateral information from her mother or her outpatient clinicians. -Records reviewed from outpatient psychiatrist, Dr. Pina. She would benefit from a therapist and lead case manager. Consider the need for a 304 involuntary outpatient commitment. -Involve her in groups and therapy when she is able to tolerate them. 12/01 -increase aripiprazole to 30 mg daily for tomorrow. If effective, transition to Maintena. Continue Haldol and Ativan as needed in the meantime. -Fasting glucose 59, cholesterol levels within normal. -Get collateral information as the patient is a very poor historian. -She is willing for re-referral for a blended case management. -File for 304 involuntary commitment, to transition to an involuntary outpatient commitment at the time of discharge. 12/02 maintained treatment plan unchanged 12/03 - Pt continues to verbalize desire to return to haldol decanoate injections - as she does not feel aripiprazole is beneficial - Will order haloperidol 5mg TID scheduled, as receiving 5-10mg daily as available prns; reducing aripiprazole to 15mg tomorrow morning and continuing to taper - If tolerating and improvement is noticeable - can receive decanoate injection on unit - PRN doses of benztropine remain available for any EPS/TD - 304 hearing scheduled fro 12/06 - with plan to eventually convert to 304 outpatient commitment 12/04 -appears sedated with restart Haldol, speed up Abilify taper to 5 mg BID, reviewed med list and receiving BID Ativan 2 mg prn and on methadone. Will begin benzo taper to 1 mg and monitor. Hold it and Haldol for excessive sedation discussed with staff. 12/05 --resume Haldol at 5 mg BID, continue decrease frequency of Ativan dosing. Stop Abilify given concerns about QTc (491 last evening), and medical necessity of Haldol. Repeat EKG this pm. Encourage fluids. 12/06 -Repeat EKG yesterday afternoon with continued prolonged QTC (504). Aripiprazole was stopped yesterday, will recheck QTC today and consider cardiology consult. Consider decreasing methadone dose if QTC does not normalize with elimination of the atypical antipsychotic. -Current Haldol dosing insufficient to control symptoms, but will hold off on titration for now given prolonged QTC and risk of arrhythmia. -304 hearing held today. Re-refer for a blended case management. We will need a family meeting with her mother when she is able to tolerate it. 12/07 - Continue current dosing of haloperidol with ongoing EKGs to monitor for QTc. Last evening's QTc was reduced to 484 - Recommendations received from [facility] to reduce methadone dose to 107mg for 4-5 days to ideally allow for QTc normalization - Will need to continue to assess aftercare/discharge planning 12/08 -QTC today 477. Methadone reduced as above. Continue haloperidol 5 mg twice daily for today, but consider dose increase tomorrow. 12/09 - PRN haloperidol 5mg was provided to patient yesterday afternoon - subsequently, dose was increased to 5mg TID scheduled - Repeat QTc today is 479. Will continue daily EKGs to monitor for QTc prolongation limiting more rapid titration of haloperidol - Consider need to further taper methadone - as recommended by [facility] - could consider reducing dose to 102mg after a few days if QTc remains prolonged - Will need to confirm current outpatient psychiatrist is able to manage patient on 304 outpatient commitment or refer accordingly to another provider 12/10 - Continue haloperidol 5mg TID, further titration as appropriate - Continue methadone 107mg tomorrow morning, recommend reducing to 102mg thereafter - QTc of 488 this morning, continue to monitor daily EKGs - As sedation has improved, will order lorazepam TID prn, given level of anxiety and concerns with more rapid titration of haloperidol to target symptoms 12/11 -Increase Haldol to 7.5 mg p.o. 3 times daily -Has Cogentin as needed available 12/12 Tolerating increased Haldol well so far. 12/13 - Continue Haldol at 7.5mg TID, as patient feels it has been an effective dose for her auditory hallucinations - If dosage remains effective, consider timing of conversion to Haldol Dec - QTc today was 475; continue methadone at 102mg daily - Reviewed that patient will not receive lorazepam on discharge, and as anxiety is improving suggested taper. Pt was agreeable to tapering to 1mg BID prn. 12/14 - Continue Haldol 7.5mg TID - continues to deny auditory hallucinations at this dosage - Continue lorazepam taper - Will obtain additional EKG tomorrow to ensure QTc prolongation is resolving (3) Methamphetamine abuse: 11/30 -UDS positive, likely contributing to insomnia, mood instability, and psychosis. -Recovery protocol. -Coordinate with [facility] and outpatient psychiatrist. -We will review recommendations for inpatient rehab once less psychotic. -Avoid prescribing controlled substances given the severity of her addictions issues. We will discontinue zolpidem. (4) Heroin abuse: 11/30 -methadone dose confirmed with [facility]. Will need to inform them of her methamphetamine and cannabis use, and review plan for ongoing MAT prior to discharge. 12/07 - Communication with [facility] to discuss concerns related to QTC prolongation and methadone dose contributing to these concerns - Recommendation from Dr. Morataya is to slowly decrease methadone dose, starting with reduction by 5mg (107mg/day) for 4-5 days then re-evaluate - Will order for patient to receive 107mg dose starting tomorrow morning 12/11 -We will reduce methadone to 102 mg tomorrow as planned -We will continue EKGs every 3 days following stable QTc interval today 12/12 Methadone decreased this morning. Watch for signs of mild withdrawal (5) Cannabis abuse: Likely exacerbating psychotic symptoms. Once patient is less psychotic, will provide education about the risks of psychoactive substance abuse. (6) Hepatitis C: Avoid hepatotoxic agents Risk Factors Assessment Male: No : Yes Health Problems: Yes Mental Health Diagnoses: Yes Substance Use Disorders: Yes Previous Attempt: Yes Family History of Suicide: Yes Previous Psychiatric Hospitalization: Yes Smoker: Yes Protective Factors Assessment Uatsdin Beliefs: No : No Responsible for Young Children: No (Lost custody of her children, has not seen them in months.) Employed: Yes ([employer]) Stable Relationships: No Good Rapport with Provider: No Interval History Identifying Information ELZBIETA CARTAGENA is a 33-year-old F who currently lives in [place], has a history of bipolar disorder with psychosis and polysubstance abuse (heroin, opiate pain medications, benzodiazepines, cannabis, methamphetamine), and was admitted on 11/30/18 00:43 on a 201 voluntary commitment for psychosis and command auditory hallucinations telling her to kill herself, after she removed a screen and attempted to jump out of a second story window at [facility]. Chief Complaint "I woke up in the middle of the night and couldn't go back to sleep. Nightmares." Review of Systems Notes Constitutional: reports being awoken by a nightmares last evening Cardiovascular: denied Respiratory: denied Gastrointestinal: denied Neurological: denied Psychiatric: denies symptoms other than stated above Total of at least 10 systems reviewed, pertinent positives as above and in HPI. Sleep Information Total Hours of Sleep: 8.5 Sleep Comments: pt appeared to sleep 1.5 hrs during evening shift. pt on q-15 minute checks Meal Information Percent Meal Consumed - Breakfast: 75 Percent Meal Consumed - Lunch: 50 Percent Meal Consumed - Dinner: 100 Nutrition Comment: pt. asleep. Meal dated, labeled and refrigerated. Snack and fluids at bedside. Subjective Subjective Patient was seen & assessed and interval progress reviewed with Nursing and social work. Staff reports patient continues to improve in regard to thought organization and ability/willingness to participate in group and recreational programming. It is reported that her lead case manager is to visit on 12/17/2018, wit h hopeful review of potential housing options. Patient was seen today to assess progress since admission. She states that she did not sleep well last evening, and was woken up in the middle of the night due to a nightmare. Patient states her nightmares are most often about "stuff I had seen, my father dying, my brother dying." She denies experiencing flashbacks throughout the day, and states that prior to admission she would reserve her dose of Ambien for when she was awoken following a nightmare. Patient states that she has been attempting to attend groups more frequently, believing she attended 2 or 3 events yesterday afternoon. Patient states her motivation for afternoon groups is twofold, feeling she enjoys these groups more and feeling she is more focused in the afternoon and better able to retain the information. Patient continues to endorse efficacy of her current dosage of haloperidol, and remains agreeable to conversion to the long-acting injectable prior to discharge. Patient denies other needs or concerns for this provider today. Physical Exam Psychiatric Orientation: alert, oriented x 3 and cooperative Apperance: appropriately dressed and + disheveled Eye Contact: good eye contact Motor Behavior: no abnormal motor movements (Observed while laying in bed) Speech: normal rate/rhythm/volume of speech Affect: + blunted affect; no depressed affect "I still feel pretty good" Thought Process: goal directed thought process, clear/coherent thought process and + concrete thought process Thought Content: reality based without delusions Suicidal Thoughts: denies suicidal thoughts and denies suicidal plan Homicidal Thoughts: denies homicidal thoughts Hallucinations: no auditory hallucinations and no visual hallucinations Cognition: attention grossly intact and language grossly intact Estimated Intelligence: consistent with education level Insight: + limited insight Judgement: + limited judgement Vital Signs (Past 24 Hours) Last Vital Signs Temp 36.5 C 12/14/18 06:53 Pulse 73 12/14/18 06:54 Resp 18 12/14/18 06:53 BP 94/63 L 12/14/18 06:54 Pulse Ox 95 11/30/18 01:39 Results & Data Current Inpatient Medications Current Inpatient Medications: Current Inpatient Medications Acetaminophen (Tylenol) 650 mg PO Q4H PRN PRN Reason: Headache or Minor Fever Stop: 12/30/18 01:26 Last Admin: 12/11/18 16:39 Dose: 650 mg Documented by: Al Hydrox/Mg Hydrox/Simethicone (Maalox) 30 ml PO Q4H PRN PRN Reason: GI Upset Stop: 12/30/18 01:26 Albuterol (Ventolin Hfa) 2 puffs INH QID PRN PRN Reason: asthma Stop: 12/30/18 11:43 Benztropine Mesylate (Cogentin) 1 mg PO TID PRN PRN Reason: EPS Stop: 12/31/18 14:03 Last Admin: 12/01/18 15:04 Dose: 1 mg Documented by: Bismuth Subsalicylate (Kaopectate) 15 ml PO PRN PRN PRN Reason: Loose Stool Stop: 12/30/18 01:26 Ferrous Sulfate (Feosol) 325 mg PO BID [facility] Stop: 12/30/18 20:59 Last Admin: 12/14/18 09:12 Dose: 325 mg Documented by: Folic Acid (Folvite) 1 mg PO DAILY [facility] Stop: 12/31/18 08:59 Last Admin: 12/14/18 09:13 Dose: 1 mg Documented by: Gabapentin (Neurontin) 600 mg PO TID [facility] Stop: 12/30/18 08:59 Last Admin: 12/14/18 13:36 Dose: 600 mg Documented by: Haloperidol (Haldol) 7.5 mg PO TID [facility] Stop: 01/10/19 13:59 Last Admin: 12/14/18 13:37 Dose: 7.5 mg Documented by: Lorazepam (Ativan) 1 mg PO BID PRN PRN Reason: Anxiety/Agitation Stop: 01/09/19 12:31 Last Admin: 12/14/18 13:36 Dose: 1 mg Documented by: Lorazepam (Ativan) 2 mg IM BID PRN PRN Reason: Anxiety/Agitation Stop: 12/30/18 02:21 Magnesium Hydroxide (Milk Of Magnesia) 30 ml PO DAILY PRN PRN Reason: Heartburn Stop: 12/30/18 01:26 Methadone HCl (Methadone Hcl) 102 mg PO DAILY [facility] Stop: 12/26/18 08:59 Last Admin: 12/14/18 09:14 Dose: 102 mg Documented by: Mirtazapine (Remeron Solutab) 45 mg PO HS [facility] Stop: 12/30/18 21:59 Last Admin: 12/13/18 21:50 Dose: 45 mg Documented by: Nicotine (Nicoderm Cq) 14 mg TD QAM [facility] Stop: 12/30/18 08:59 Last Admin: 12/14/18 09:14 Dose: 14 mg Documented by: Nicotine Polacrilex (Nicorette 2mg) 1 piece MT UD PRN PRN Reason: Nicotine Withdrawal Stop: 12/30/18 01:26 Last Admin: 12/13/18 13:28 Dose: 1 piece Documented by: Pantoprazole Sodium (Protonix) 40 mg PO BID [facility] Stop: 12/30/18 08:59 Last Admin: 12/14/18 09:15 Dose: 40 mg Documented by: Phenol (Chloraseptic 1.4% [place]) 3 sprays MT QID PRN PRN Reason: Sore Throat Stop: 01/11/19 10:50 Prazosin HCl (Prazosin Hcl) 2 mg PO HS [facility] Stop: 12/30/18 21:59 Last Admin: 12/13/18 21:51 Dose: 2 mg Documented by: Sodium Chloride ([place] Nasal) 1 - 2 sprays NA PRN PRN PRN Reason: Nasal Dryness/Congestion Stop: 12/30/18 01:26 Mental Health & Subst Abuse Tx Psychiatrist Name of Psychiatrist: [facility] - Intake with Love (will schedule after intake) Psychiatrist's Date of Appointment with Psychiatrist: 12/21/18 Time of Appointment with Psychiatrist: 1:15 p.m. Psychiatric Appointment Comment: [address] [place] [address] Therapist Name of Therapist: [facility] - Intake with Love (ask to see Opal moving forward after the intake) Therapist's Date of Therapist Appointment: 12/24/18 Time of Therapist Appointment: 1:00 p.m. Therapy Appointment Comment: [address] [place] [address] [employer] Name of Wood Model Builder: ANITA Gomez Phone Number for Wood Model Builder: [phone] Case Management Appointment Comment: [address], [address], [place] [address] Post Discharge Appointments Primary Care Physician Name Of Family Doctor: [facility] - Dr. Rin Blue [facility] Time of Appointment with PCP: Follow up as needed. Provider Appointment Comment: [address] [place] [address] Specialist Name of Specialist: [facility] Phone Number for Specialist: Time of Appointment with Specialist: Return with your routine schedule Specialty Appointment Comment: [address], [place], [place] [address] Contact Information Discharge Discharge Address: [address] [place] [address] CPT Code CPT Code 64106 (1) Bipolar disorder Active/Remission status: currently active Current episode severity: severe Psychotic features: with psychotic features
[2018-12-14] MEDS: MIRTAZAPINE SOLTAB 15 MG PO SCH (21:16)
[2018-12-14] MEDS: PRAZOSIN HCL 1 MG CAP PO SCH (21:16)
[2018-12-15] MEDS: HALOPERIDOL 5 MG TAB PO SCH ×2 (09:42→21:25)
[2018-12-15] MEDS: FERROUS SULFATE 325 MG TAB PO SCH ×2 (09:42→21:24)
[2018-12-15] MEDS: FOLIC ACID 1 MG TAB PO SCH (09:42)
[2018-12-15] MEDS: PANTOprazole 40 MG TAB PO SCH ×2 (09:43→21:25)
[2018-12-15] MEDS: METHADONE ORAL SOLN 2 MG/ML PO SCH (09:43)
[2018-12-15] MEDS: GABAPENTIN 600 MG TAB PO SCH ×3 (09:43→21:25)
[2018-12-15] MEDS: NICOTINE 14 MG/24 HR PATCH TD SCH (09:50)
[2018-12-15] MEDS: PATIENT'S OWN CONTROLLED MED PO SCH (09:51)
--- NOTE | 2018-12-15 10:01 | Psychiatric Progress Note ---
Date of Service December 15, 2018 Impression / Recommendations Impression 33-year-old female with a history of bipolar disorder type I and polysubstance abuse (heroin, now on methadone, recent IV methamphetamine, cannabis, and prescription medications and alcohol in the past) who presents with suicidality and predominant psychotic symptoms after she tried to jump out of a second story window at [facility]. She had endorsed auditory hallucinations of voices telling her that she is a bad person, has harmed children, and that she should kill herself or that other people are going to kill her. Oral Haldol has been titrated to 7.5mg TID, and patient reported resolution of these hallucinations. She received the first injection of haloperidol decanoate 100mg today. Pt agreeable to receiving second injection on Thursday prior to discharge, barring any complications. 304 inpatient commitment was granted on 12/06/18, with a plan to convert this to an involuntary outpatient commitment at the time of discharge, as she reports that this was helpful in the past to keep her in treatment. Pt requires additional attention related to medication adjustments and her aftercare. Without proper arrangements prior to discharge, she is at high risk of decompensation and either rapid readmission or possible harm to herself or others. Ongoing inpatient psychiatric treatment remains medically necessary. (1) Suicidal thoughts: 11/30 -patient endorsed suicidal thoughts in the ER, and had attempted to jump out of a second story window prior to presentation. Suicidality appears to be driven by psychosis at this point, with command auditory hallucinations telling her to end her life. -Medically necessary private room due to severity of symptoms and unpredictable, impulsive behavior. -Suicide checks for safety. 12/03 - Pt continuing to report she feels she is "not allowed to be alive" - intense guilt and remorse leading to ongoing SI. 12/08 -suicidality continues, but is lessening from admission. 12/15 - Pt denies suicidality, no longer feeling paranoid (2) Bipolar disorder: 11/30 -history of bipolar disorder with frequent psychotic episodes, exacerbated by ongoing substance abuse (cannabis, methamphetamine, possibly others). -Current medications confirmed with outpatient records: Last discharged from our unit on Haldol Decanoate, but switched to aripiprazole by her outpatient psychiatrist in 07/2018 due to reports of sedation and weight gain. Will increase aripiprazole to 15 mg daily, and consider further increase to 30 mg daily if needed. If this is effective, she would benefit from the long-acting injectable Abilify Maintena. If ineffective, could consider short-term use of haloperidol which has been beneficial in the past. -Order fasting lipid profile and glucose for monitoring on an atypical antipsychotic. -Get collateral information from her mother or her outpatient clinicians. -Records reviewed from outpatient psychiatrist, Dr. Pina. She would benefit from a therapist and spring encaser. Consider the need for a 304 involuntary outpatient commitment. -Involve her in groups and therapy when she is able to tolerate them. 12/01 -increase aripiprazole to 30 mg daily for tomorrow. If effective, transition to Maintena. Continue Haldol and Ativan as needed in the meantime. -Fasting glucose 59, cholesterol levels within normal. -Get collateral information as the patient is a very poor historian. -She is willing for re-referral for a blended case management. -File for 304 involuntary commitment, to transition to an involuntary outpatient commitment at the time of discharge. 12/02 maintained treatment plan unchanged 12/03 - Pt continues to verbalize desire to return to haldol decanoate injections - as she does not feel aripiprazole is beneficial - Will order haloperidol 5mg TID scheduled, as receiving 5-10mg daily as available prns; reducing aripiprazole to 15mg tomorrow morning and continuing to taper - If tolerating and improvement is noticeable - can receive decanoate injection on unit - PRN doses of benztropine remain available for any EPS/TD - 304 hearing scheduled fro 12/06 - with plan to eventually convert to 304 outpatient commitment 12/04 -appears sedated with restart Haldol, speed up Abilify taper to 5 mg BID, reviewed med list and receiving BID Ativan 2 mg prn and on methadone. Will begin benzo taper to 1 mg and monitor. Hold it and Haldol for excessive sedation discussed with staff. 12/05 --resume Haldol at 5 mg BID, continue decrease frequency of Ativan dosing. Stop Abilify given concerns about QTc (491 last evening), and medical necessity of Haldol. Repeat EKG this pm. Encourage fluids. 12/06 -Repeat EKG yesterday afternoon with continued prolonged QTC (504). Aripiprazole was stopped yesterday, will recheck QTC today and consider cardiology consult. Consider decreasing methadone dose if QTC does not normalize with elimination of the atypical antipsychotic. -Current Haldol dosing insufficient to control symptoms, but will hold off on titration for now given prolonged QTC and risk of arrhythmia. -304 hearing held today. Re-refer for a blended case management. We will need a family meeting with her mother when she is able to tolerate it. 12/07 - Continue current dosing of haloperidol with ongoing EKGs to monitor for QTc. Last evening's QTc was reduced to 484 - Recommendations received from [facility] to reduce methadone dose to 107mg for 4-5 days to ideally allow for QTc normalization - Will need to continue to assess aftercare/discharge planning 12/08 -QTC today 477. Methadone reduced as above. Continue haloperidol 5 mg twice daily for today, but consider dose increase tomorrow. 12/09 - PRN haloperidol 5mg was provided to patient yesterday afternoon - subsequently, dose was increased to 5mg TID scheduled - Repeat QTc today is 479. Will continue daily EKGs to monitor for QTc prolongation limiting more rapid titration of haloperidol - Consider need to further taper methadone - as recommended by [facility] - could consider reducing dose to 102mg after a few days if QTc remains prolonged - Will need to confirm current outpatient psychiatrist is able to manage pat ient on 304 outpatient commitment or refer accordingly to another provider 12/10 - Continue haloperidol 5mg TID, further titration as appropriate - Continue methadone 107mg tomorrow morning, recommend reducing to 102mg thereafter - QTc of 488 this morning, continue to monitor daily EKGs - As sedation has improved, will order lorazepam TID prn, given level of anxiety and concerns with more rapid titration of haloperidol to target symptoms 12/11 -Increase Haldol to 7.5 mg p.o. 3 times daily -Has Cogentin as needed available 12/12 Tolerating increased Haldol well so far. 12/13 - Continue Haldol at 7.5mg TID, as patient feels it has been an effective dose for her auditory hallucinations - If dosage remains effective, consider timing of conversion to Haldol Dec - QTc today was 475; continue methadone at 102mg daily - Reviewed that patient will not receive lorazepam on discharge, and as anxiety is improving suggested taper. Pt was agreeable to tapering to 1mg BID prn. 12/14 - Continue Haldol 7.5mg TID - continues to deny auditory hallucinations at this dosage - Continue lorazepam taper - Will obtain additional EKG tomorrow to ensure QTc prolongation is resolving 12/15 - Pt received 100mg of haloperidol decanoate today; if no side effects, will receive second injection on 12/17/18 prior to discharge - risks and potential concerns with dosing a day early were explained and accepted by patient. - Haloperidol reduced to 7.5mg BID today after receiving injection, will continue taper - Organization of thought continues to improve - QTc today of 476; which has been rather consistent over the past 3 EKGs - Pt taken off [facility] as paranoia/persecutory thoughts have resolved and she now seems more appropriate for a roommate - Meeting with spring encaser Thursday to solidify aftercare and discharge plan (3) Methamphetamine abuse: 11/30 -UDS positive, likely contributing to insomnia, mood instability, and psychosis. -Recovery protocol. -Coordinate with [facility] and outpatient psychiatrist. -We will review recommendations for inpatient rehab once less psychotic. -Avoid prescribing controlled substances given the severity of her addictions issues. We will discontinue zolpidem. (4) Heroin abuse: 11/30 -methadone dose confirmed with [facility]. Will need to i nform them of her methamphetamine and cannabis use, and review plan for ongoing MAT prior to discharge. 12/07 - Communication with [facility] to discuss concerns related to QTC prolongation and methadone dose contributing to these concerns - Recommendation from Dr. Morataya is to slowly decrease methadone dose, starting with reduction by 5mg (107mg/day) for 4-5 days then re-evaluate - Will order for patient to receive 107mg dose starting tomorrow morning 12/11 -We will reduce methadone to 102 mg tomorrow as planned -We will continue EKGs every 3 days following stable QTc interval today 12/12 Methadone decreased this morning. Watch for signs of mild withdrawal (5) Cannabis abuse: Likely exacerbating psychotic symptoms. Once patient is less psychotic, will provide education about the risks of psychoactive substance abuse. (6) Hepatitis C: Avoid hepatotoxic agents Risk Factors Assessment Male: No : Yes Health Problems: Yes Mental Health Diagnoses: Yes Substance Use Disorders: Yes Previous Attempt: Yes Family History of Suicide: Yes Previous Psychiatric Hospitalization: Yes Smoker: Yes Protective Factors Assessment Roman Catholic Beliefs: No : No Responsible for Young Children: No (Lost custody of her children, has not seen them in months.) Employed: Yes ([employer]) Stable Relationships: No Good Rapport with Provider: No Interval History Identifying Information ELZBIETA CARTAGENA is a 33-year-old F who currently lives in [place], has a history of bipolar disorder with psychosis and polysubstance abuse (heroin, opiate pain medications, benzodiazepines, cannabis, methamphetamine), and was admitted on 11/30/18 00:43 on a 201 voluntary commitment for psychosis and command auditory hallucinations telling her to kill herself, after she removed a screen and attempted to jump out of a second story window at [employer]. Chief Complaint "Good, ok." Review of Systems Notes Constitutional: reports some ongoing fatigue, she believes is related to PO haloperidol Cardiovascular: denied Respiratory: denied Gastrointestinal: denied Neurological: denied Psychiatric: denies symptoms other than stated above Total of at least 10 systems reviewed, pertinent positives as above and in HPI. Sleep Information Total Hours of Sleep: 10.5 Sleep Comments: pt appeared to sleep 1.5 hrs during evening shift. pt on q-15 minute checks Meal Information Percent Meal Consumed - Breakfast: 100 Percent Meal Consumed - Lunch: 100 Percent Meal Consumed - Dinner: 80 Nutrition Comment: pt. asleep. Meal dated, labeled and refrigerated. Snack and fluids at bedside. Subjective Subjective Patient was seen & assessed and interval progress reviewed with Treatment Team. Staff reports the patient rated her mood a 7/10 last evening and felt "complacent and ready for discharge." Intake at [facility] has been scheduled, but patient's housing options after discharge remain a concern - given her propensity to turn to substance abuse without adequate outpatient supports. Pt was seen today to assess progress since admission. Patient states she is feeling "good okay" she continues to feel that her current daily dose of haloperidol is effective at significantly reducing her auditory hallucinations. Patient denies any ongoing paranoia or persecutory thoughts. She denies suicidal ideation at this time, and is focused on discharge planning. Patient remains agreeable to initiation of haloperidol decanoate during this admission, and will receive her initial injection of 100 mg today. Discussed options with patient regarding her second injection, as she is at high risk of decompensation if the full loading dose is not provided prior to discharge. Patient was informed of manufacture recommendations that the second injection be given 3-7 days after the first. Patient was offered to remain on the unit to receive the second injection within this timeline. Patient was also offered, if she felt comfortable, to receive the second injection 1 day sooner with the consideration for discharge on 12/17/2018. Risks and benefits of this decision were explained, and patient verbalized understanding. Patient has been on the medication previously and denies any side effects related to the injections. Patient states "I think the risk of getting it too soon is better than the alternative." Patient does feel that she needs to complete the full series before discharge, but feels she does not require a longer stay on the unit in order to complete this in 3-7 days. Of course, patient was informed that if there are any side effects to the initial injection we would recommend delaying the second according to manufacture recommendations. Patient verbalized understanding of the entirety of this conversation and was agreeable with plan. Patient denies any additional needs or concerns today. Physical Exam Psychiatric Orientation: alert, oriented x 3 and cooperative Apperance: appropriately dressed and + disheveled Eye Contact: good eye contact Motor Behavior: no abnormal motor movements (Observed while sitting upright in bed) Speech: normal rate/rhythm/volume of speech Affect: + blunted affect (Appearing fatigued); no depressed affect and no anxious affect Mood: no depressed mood and no anxious mood "Good, Ok." Thought Process: goal directed thought process and clear/coherent thought process Thought Content: reality based without delusions; no persecution and no worthlessness Suicidal Thoughts: denies suicidal thoughts and denies suicidal plan Homicidal Thoughts: denies homicidal thoughts Hallucinations: no auditory hallucinations and no visual hallucinations Cognition: attention grossly intact and language grossly intact Estimated Intelligence: consistent with education level Insight: + limited insight (improving since admission, but chronically limited) Judgement: + limited judgement (improving since admission, but chronically limited) Vital Signs (Past 24 Hours) Last Vital Signs Temp 36.6 C 12/15/18 06:44 Pulse 65 12/15/18 06:57 Resp 18 12/15/18 06:44 BP 88/62 L 12/15/18 06:57 Pulse Ox 95 11/30/18 01:39 Results & Data Current Inpatient Medications Current Inpatient Medications: Current Inpatient Medications Acetaminophen (Tylenol) 650 mg PO Q4H PRN PRN Reason: Headache or Minor Fever Stop: 12/30/18 01:26 Last Admin: 12/11/18 16:39 Dose: 650 mg Documented by: Al Hydrox/Mg Hydrox/Simethicone (Maalox) 30 ml PO Q4H PRN PRN Reason: GI Upset Stop: 12/30/18 01:26 Albuterol (Ventolin Hfa) 2 puffs INH QID PRN PRN Reason: asthma Stop: 12/30/18 11:43 Benztropine Mesylate (Cogentin) 1 mg PO TID PRN PRN Reason: EPS Stop: 12/31/18 14:03 Last Admin: 12/01/18 15:04 Dose: 1 mg Documented by: Bismuth Subsalicylate (Kaopectate) 15 ml PO PRN PRN PRN Reason: Loose Stool Stop: 12/30/18 01:26 Ferrous Sulfate (Feosol) 325 mg PO BID [facility] Stop: 12/30/18 20:59 Last Admin: 12/15/18 09:42 Dose: 325 mg Documented by: Folic Acid (Folvite) 1 mg PO DAILY [facility] Stop: 12/31/18 08:59 Last Admin: 12/15/18 09:42 Dose: 1 mg Documented by: Gabapentin (Neurontin) 600 mg PO TID [facility] Stop: 12/30/18 08:59 Last Admin: 12/15/18 09:43 Dose: 600 mg Documented by: Haloperidol (Haldol) 7.5 mg PO TID [facility] Stop: 01/10/19 13:59 Last Admin: 12/15/18 09:42 Dose: 7.5 mg Documented by: Lorazepam (Ativan) 1 mg PO BID PRN PRN Reason: Anxiety/Agitation Stop: 01/09/19 12:31 Last Admin: 12/14/18 21:19 Dose: 1 mg Documented by: Lorazepam (Ativan) 2 mg IM BID PRN PRN Reason: Anxiety/Agitation Stop: 12/30/18 02:21 Magnesium Hydroxide (Milk Of Magnesia) 30 ml PO DAILY PRN PRN Reason: Heartburn Stop: 12/30/18 01:26 Methadone HCl (Methadone Hcl) 102 mg PO DAILY [facility] Stop: 12/26/18 08:59 Last Admin: 12/15/18 09:43 Dose: 102 mg Documented by: Mirtazapine (Remeron Solutab) 45 mg PO [facility] Stop: 12/30/18 21:59 Last Admin: 12/14/18 21:16 Dose: 45 mg Documented by: Nicotine (Nicoderm Cq) 14 mg TD QAM BRODIE Stop: 12/30/18 08:59 Last Admin: 12/15/18 09:50 Dose: 14 mg Documented by: Nicotine Polacrilex (Nicorette 2mg) 1 piece MT UD PRN PRN Reason: Nicotine Withdrawal Stop: 12/30/18 01:26 Last Admin: 12/13/18 13:28 Dose: 1 piece Documented by: Non-Formulary Medication (Patient's Own Controlled Med) 1 ea PO QAM BRODIE Stop: 01/14/19 13:59 Last Admin: 12/15/18 09:51 Dose: Not Given Documented by: Pantoprazole Sodium (Protonix) 40 mg PO BID BRODIE Stop: 12/30/18 08:59 Last Admin: 12/15/18 09:43 Dose: 40 mg Documented by: Phenol (Chloraseptic 1.4% [place]) 3 sprays MT QID PRN PRN Reason: Sore Throat Stop: 01/11/19 10:50 Prazosin HCl (Prazosin Hcl) 2 mg PO HS BRODIE Stop: 12/30/18 21:59 Last Admin: 12/14/18 21:16 Dose: 2 mg Documented by: Sodium Chloride ([place] Nasal) 1 - 2 sprays NA PRN PRN PRN Reason: Nasal Dryness/Congestion Stop: 12/30/18 01:26 Mental Health & Subst Abuse Tx Psychiatrist Name of Psychiatrist: [facility] - Intake with [facility] (will schedule after intake) Psychiatrist's Date of Appointment with Psychiatrist: 12/21/18 Time of Appointment with Psychiatrist: 1:15 p.m. Psychiatric Appointment Comment: [address] [place] [address] Therapist Name of Therapist: [facility] - Intake with [facility] (ask to see Opal moving forward after the intake) Therapist's Date of Therapist Appointment: 12/24/18 Time of Therapist Appointment: 1:00 p.m. Therapy Appointment Comment: [address] [place] [address] Aircraft Engineer Name of Aircraft Engineer: ANITA Gomez Phone Number for Aircraft Engineer: [phone] Case Management Appointment Comment: [address], [address], [place] [address] Post Discharge Appointments Primary Care Physician Name Of Family Doctor: [facility] - Dr. Rin Blue Primary [facility] Time of Appointment with PCP: Follow up as needed. Provider Appointment Comment: [address] [place] [address] Specialist Name of Specialist: [place] [facility] Phone Number for Specialist: Time of Appointment with Specialist: Return with your routine schedule Specialty Appointment Comment: [address], [place] [address] Contact Information Discharge Discharge Address: [address] [place] [address] CPT Code CPT Code 18112 (1) Bipolar disorder Active/Remission status: currently active Current episode severity: severe Psychotic features: with psychotic features
[2018-12-15] MEDS: LORazepam 1 MG TAB PO PRN (11:26)
[2018-12-15] MEDS ORDERED: HALOPERIDOL DECANOATE INJ 50 MG/ML VIAL IM ONE (13:20)
[2018-12-15] MEDS: NICOTINE POLACRILEX 2 MG GUM MT PRN (14:37)
[2018-12-15] MEDS: PRAZOSIN HCL 1 MG CAP PO SCH (21:25)
[2018-12-15] MEDS: MIRTAZAPINE SOLTAB 15 MG PO SCH (21:25)
--- NOTE | 2018-12-16 09:23 | Psychiatric Progress Note ---
Date of Service December 16, 2018 Impression / Recommendations Impression 33-year-old female with a history of bipolar disorder type I and polysubstance abuse (heroin, now on methadone, recent IV methamphetamine, cannabis, and prescription medications and alcohol in the past) who presented with suicidality and psychotic symptoms after she tried to jump out of a second story window at [facility]. She had auditory hallucinations of voices telling her that she is a bad person, has harmed children, and that she should kill herself or that other people are going to kill her. Oral Haldol was effective at 7.5mg TID, and she is being transitioned to Haldol Decanoate due to her history of noncompliance and repeated episodes of psychosis, and received her first loading injection of 100mg yesterday. She is tolerating it well, and we will order the second injection on Thursday prior to discharge. 304 inpatient commitment was granted on 12/06/18, paperwork has been filed to convert this to an involuntary outpatient commitment at the time of discharge, as she reports that this was helpful in the past to keep her in treatment. Inpatient psychiatric treatment remains medically necessary to place the patient had a long-acting injectable and transition her inpatient commitment to an involuntary outpatient commitment; without these interventions, she remains at high risk of noncompliance, rapid decompensation and harm to herself or others. (1) Suicidal thoughts: 11/30 -patient endorsed suicidal thoughts in the ER, and had attempted to jump out of a second story window prior to presentation. Suicidality appears to be driven by psychosis at this point, with command auditory hallucinations telling her to end her life. -Medically necessary private room due to severity of symptoms and unpredictable, impulsive behavior. -Suicide checks for safety. 12/03 - Pt continuing to report she feels she is "not allowed to be alive" - intense guilt and remorse leading to ongoing SI. 12/08 -suicidality continues, but is lessening from admission. 12/15 - Pt denies suicidality, no longer feeling paranoid (2) Bipolar disorder: 11/30 -history of bipolar disorder with frequent psychotic episodes, exacerbated by ongoing substance abuse (cannabis, methamphetamine, possibly others). -Current medications confirmed with outpatient records: Last discharged from our unit on Haldol Decanoate, but switched to aripiprazole by her outpatient psychiatrist in 07/2018 due to reports of sedation and weight gain. Will increase aripiprazole to 15 mg daily, and consider further increase to 30 mg daily if needed. If this is effective, she would benefit from the long-acting injectable Abilify Maintena. If ineffective, could consider short-term use of haloperidol which has been beneficial in the past. -Order fasting lipid profile and glucose for monitoring on an atypical antipsychotic. -Get collateral information from her mother or her outpatient clinicians. -Records reviewed from outpatient psychiatrist, Dr. Pina. She would benefit from a therapist and behavioral health case manager. Consider the need for a 304 involuntary outpatient commitment. -Involve her in groups and therapy when she is able to tolerate them. 12/01 -increase aripiprazole to 30 mg daily for tomorrow. If effective, transition to Maintena. Continue Haldol and Ativan as needed in the meantime. -Fasting glucose 59, cholesterol levels within normal. -Get collateral information as the patient is a very poor historian. -She is willing for re-referral for a blended case management. -File for 304 involuntary commitment, to transition to an involuntary outpatient commitment at the time of discharge. 12/02 maintained treatment plan unchanged 12/03 - Pt continues to verbalize desire to return to haldol decanoate injections - as she does not feel aripiprazole is beneficial - Will order haloperidol 5mg TID scheduled, as receiving 5-10mg daily as available prns; reducing aripiprazole to 15mg tomorrow morning and continuing to taper - If tolerating and improvement is noticeable - can receive decanoate injection on unit - PRN doses of benztropine remain available for any EPS/TD - 304 hearing scheduled fro 12/06 - with plan to eventually convert to 304 outpatient commitment 12/04 -appears sedated with restart Haldol, speed up Abilify taper to 5 mg BID, reviewed med list and receiving BID Ativan 2 mg prn and on methadone. Will begin benzo taper to 1 mg and monitor. Hold it and Haldol for excessive sedation discussed with staff. 12/05 --resume Haldol at 5 mg BID, continue decrease frequency of Ativan dosing. Stop Abilify given concerns about QTc (491 last evening), and medical necessity of Haldol. Repeat EKG this pm. Encourage fluids. 12/06 -Repeat EKG yesterday afternoon with continued prolonged QTC (504). Aripiprazole was stopped yesterday, will recheck QTC today and consider cardiology consult. Consider decreasing methadone dose if QTC does not normalize with elimination of the atypical antipsychotic. -Current Haldol dosing insufficient to control symptoms, but will hold off on titration for now given prolonged QTC and risk of arrhythmia. -304 hearing held today. Re-refer for a blended case management. We will n eed a family meeting with her mother when she is able to tolerate it. 12/07 - Continue current dosing of haloperidol with ongoing EKGs to monitor for QTc. Last evening's QTc was reduced to 484 - Recommendations received from [facility] to reduce methadone dose to 107mg for 4-5 days to ideally allow for QTc normalization - Will need to continue to assess aftercare/discharge planning 12/08 -QTC today 477. Methadone reduced as above. Continue haloperidol 5 mg twice daily for today, but consider dose increase tomorrow. 12/09 - PRN haloperidol 5mg was provided to patient yesterday afternoon - subsequently, dose was increased to 5mg TID scheduled - Repeat QTc today is 479. Will continue daily EKGs to monitor for QTc prolongation limiting more rapid titration of haloperidol - Consider need to further taper methadone - as recommended by [facility] - could consider reducing dose to 102mg after a few days if QTc remains prolonged - Will need to confirm current outpatient psychiatrist is able to manage patient on 304 outpatient commitment or refer accordingly to another provider 12/10 - Continue haloperidol 5mg TID, further titration as appropriate - Continue methadone 107mg tomorrow morning, recommend reducing to 102mg thereafter - QTc of 488 this morning, continue to monitor daily EKGs - As sedation has improved, will order lorazepam TID prn, given level of anxiety and concerns with more rapid titration of haloperidol to target symptoms 12/11 -Increase Haldol to 7.5 mg p.o. 3 times daily -Has Cogentin as needed available 12/12 Tolerating increased Haldol well so far. 12/13 - Continue Haldol at 7.5mg TID, as patient feels it has been an effective dose for her auditory hallucinations - If dosage remains effective, consider timing of conversion to Haldol Dec - QTc today was 475; continue methadone at 102mg daily - Reviewed that patient will not receive lorazepam on discharge, and as anxiety is improving suggested taper. Pt was agreeable to tapering to 1mg BID prn. 12/14 - Continue Haldol 7.5mg TID - continues to deny auditory hallucinations at this dosage - Continue lorazepam taper - Will obtain additional EKG tomorrow to ensure QTc prolongation is resolving 12/15 - Pt received 100mg of haloperidol decanoate today; if no side effects, will receive second injection on 12/17/18 prior to discharge - risks and potential concerns with dosing a day early were explained and accepted by patient. - Haloperidol reduced to 7.5mg BID today after receiving injection, will continue taper - Organization of thought continues to improve - QTc today of 476; which has been rather consistent over the past 3 EKGs - Pt taken off [facility] as paranoia/persecutory thoughts have resolved and she now seems more appropriate for a roommate - Meeting with behavioral health case manager Thursday to solidify aftercare and discharge plan 12/16 -Tolerating Haldol Decanoate well, will order second loading dose of 300 mg for tomorrow. Her next injection will be due 4 weeks later, on 01/14/2019. (3) Methamphetamine abuse: 11/30 -UDS positive, likely contributing to insomnia, mood instability, and psychosis. -Recovery protocol. -Coordinate with [facility] and outpatient psychiatrist. -We will review recommendations for inpatient rehab once less psychotic. -Avoid prescribing controlled substances given the severity of her addictions issues. We will discontinue zolpidem. (4) Heroin abuse: 11/30 -methadone dose confirmed with [facility]. Will need to inform them of her methamphetamine and cannabis use, and review plan for ongoing MAT prior to discharge. 12/07 - Communication with [facility] to discuss concerns related to QTC prolongation and methadone dose contributing to these concerns - Recommendation from Dr. Morataya is to slowly decrease methadone dose, starting with reduction by 5mg (107mg/day) for 4-5 days then re-evaluate - Will order for patient to receive 107mg dose starting tomorrow morning 12/11 -We will reduce methadone to 102 mg tomorrow as planned -We will continue EKGs every 3 days following stable QTc interval today 12/12 Methadone decreased this morning. Watch for signs of withdrawal 12/16 -Tolerating decreased dose of methadone well. Will need follow-up at the methadone clinic after discharge. Send records to coordinate care, and staff have already contacted them regarding her illicit substance abuse. (5) Cannabis abuse: Likely exacerbating psychotic symptoms. Once patient is less psychotic, will provide education about the risks of psychoactive substance abuse. (6) Hepatitis C: Avoid hepatotoxic agents Risk Factors Assessment Male: No : Yes Health Problems: Yes Mental Health Diagnoses: Yes Substance Use Disorders: Yes Previous Attempt: Yes Family History of Suicide: Yes Previous Psychiatric Hospitalization: Yes Smoker: Yes Protective Factors Assessment Mandaen Beliefs: No : No Responsible for Young Children: No (Lost custody of her children, has not seen them in months.) Employed: Yes ([employer]) Stable Relationships: No Good Rapport with Provider: No Interval History Identifying Information ELZBIETA CARTAGENA is a 33-year-old F who currently lives in [place], has a history of bipolar disorder with psychosis and polysubstance abuse (heroin, opiate pain medications, benzodiazepines, cannabis, methamphetamine), and was admitted on 11/30/18 00:43 on a 201 voluntary commitment for psychosis and command auditory hallucinations telling her to kill herself, after she removed a screen and attempted to jump out of a second story window at [facility]. Chief Complaint "Just tired". Review of Systems Notes Denies muscle stiffness, rigidity, abnormal movements Sleep Information Total Hours of Sleep: 7.5 Sleep Comments: pt appeared to sleep 1.5 hrs during evening shift. pt on q-15 minute checks Meal Information Percent Meal Consumed - Breakfast: 100 Percent Meal Consumed - Lunch: 100 Percent Meal Consumed - Dinner: 75 Nutrition Comment: pt. asleep. Meal dated, labeled and refrigerated. Snack and fluids at bedside. Subjective Subjective Patient was seen & assessed and interval progress reviewed with Nursing and social work. Staff reports she has been working on preparing for discharge, has been attending and participating in groups and taking medications as prescribed. She received her initial Haldol Decanoate loading dose of 100 mg IM yesterday, and told rated it well. On my assessment, she was seen in her room where she is still in bed. She states the mornings are difficult for her, as she feels tired and it is hard to get out of bed, but that energy and motivation improve in the afternoons. She reports resolution of auditory hallucinations, and denies thoughts of harming herself or others. She denies side effects from the Haldol decanoate, and is willing to receive her second loading injection tomorrow. Physical Exam Psychiatric Orientation: alert and cooperative Apperance: + disheveled Eye Contact: + fair eye contact Motor Behavior: no abnormal motor movements Speech is minimal, mildly slowed. Affect: + constricted affect (Tired) and mood congruent with affect "Tired," "okay." Thought Process: goal directed thought process Thought Content: reality based without delusions Suicidal Thoughts: denies suicidal thoughts Homicidal Thoughts: denies homicidal thoughts Hallucinations: no auditory hallucinations and no visual hallucinations Cognition: attention grossly intact and language grossly intact Insight: + fair insight Judgement: + fair judgement Vital Signs (Past 24 Hours) Last Vital Signs Temp 36.7 C 12/16/18 07:09 Pulse 75 12/16/18 07:10 Resp 16 12/16/18 07:09 BP 81/61 L 12/16/18 07:10 Pulse Ox 95 11/30/18 01:39 Results & Data Current Inpatient Medications Current Inpatient Medications: Current Inpatient Medications Acetaminophen (Tylenol) 650 mg PO Q4H PRN PRN Reason: Headache or Minor Fever Stop: 12/30/18 01:26 Last Admin: 12/11/18 16:39 Dose: 650 mg Documented by: Al Hydrox/Mg Hydrox/Simethicone (Maalox) 30 ml PO Q4H PRN PRN Reason: GI Upset Stop: 12/30/18 01:26 Albuterol (Ventolin Hfa) 2 puffs INH QID PRN PRN Reason: asthma Stop: 12/30/18 11:43 Benztropine Mesylate (Cogentin) 1 mg PO TID PRN PRN Reason: EPS Stop: 12/31/18 14:03 Last Admin: 12/01/18 15:04 Dose: 1 mg Documented by: Bismuth Subsalicylate (Kaopectate) 15 ml PO PRN PRN PRN Reason: Loose Stool Stop: 12/30/18 01:26 Ferrous Sulfate (Feosol) 325 mg PO BID BRODIE Stop: 12/30/18 20:59 Last Admin: 12/15/18 21:24 Dose: 325 mg Documented by: Folic Acid (Folvite) 1 mg PO DAILY BR[facility] Stop: 12/31/18 08:59 Last Admin: 12/15/18 09:42 Dose: 1 mg Documented by: Gabapentin (Neurontin) 600 mg PO TID [facility] Stop: 12/30/18 08:59 Last Admin: 12/15/18 21:25 Dose: 600 mg Documented by: Haloperidol (Haldol) 7.5 mg PO BID BRODIE Stop: 01/14/19 20:59 Last Admin: 12/15/18 21:25 Dose: 7.5 mg Documented by: Lorazepam (Ativan) 1 mg PO BID PRN PRN Reason: Anxiety/Agitation Stop: 01/09/19 12:31 Last Admin: 12/15/18 11:26 Dose: 1 mg Documented by: Lorazepam (Ativan) 2 mg IM BID PRN PRN Reason: Anxiety/Agitation Stop: 12/30/18 02:21 Magnesium Hydroxide (Milk Of Magnesia) 30 ml PO DAILY PRN PRN Reason: Heartburn Stop: 12/30/18 01:26 Methadone HCl (Methadone Hcl) 102 mg PO DAILY [facility] Stop: 12/26/18 08:59 Last Admin: 12/15/18 09:43 Dose: 102 mg Documented by: Mirtazapine (Remeron Solutab) 45 mg PO HS [facility] Stop: 12/30/18 21:59 Last Admin: 12/15/18 21:25 Dose: 45 mg Documented by: Nicotine (Nicoderm Cq) 14 mg TD QAM [facility] Stop: 12/30/18 08:59 Last Admin: 12/15/18 09:50 Dose: 14 mg Documented by: Nicotine Polacrilex (Nicorette 2mg) 1 piece MT UD PRN PRN Reason: Nicotine Withdrawal Stop: 12/30/18 01:26 Last Admin: 12/15/18 14:37 Dose: 1 piece Documented by: Non-Formulary Medication (Patient's Own Controlled Med) 1 ea PO QAM [facility] Stop: 01/14/19 13:59 Last Admin: 12/15/18 09:51 Dose: Not Given Documented by: Pantoprazole Sodium (Protonix) 40 mg PO BID [facility] Stop: 12/30/18 08:59 Last Admin: 12/15/18 21:25 Dose: 40 mg Documented by: Phenol (Chloraseptic 1.4% [place]) 3 sprays MT QID PRN PRN Reason: Sore Throat Stop: 01/11/19 10:50 Prazosin HCl (Prazosin Hcl) 2 mg PO HS [facility] Stop: 12/30/18 21:59 Last Admin: 12/15/18 21:25 Dose: 2 mg Documented by: Sodium Chloride ([place] Nasal) 1 - 2 sprays NA PRN PRN PRN Reason: Nasal Dryness/Congestion Stop: 12/30/18 01:26 Mental Health & Subst Abuse Tx Psychiatrist Name of Psychiatrist: [facility] - Intake with [facility] (will schedule after intake) Psychiatrist's Date of Appointment with Psychiatrist: 12/24/18 Time of Appointment with Psychiatrist: 1:00 p.m. Psychiatric Appointment [facility] [address] [facility] [place] [address] Therapist Name of Therapist: [facility] - Intake with Love (ask to see Opal moving forward after the intake) Therapist's Date of Therapist Appointment: 12/24/18 Time of Therapist Appointment: 1:00 p.m. Therapy Appointment Comment: [address] [facility] [address] Certified Public Accountant Name of Certified Public Accountant: ANITA Gomez Phone Number for Certified Public Accountant: [phone] Case Management Appointment Comment: [address], [address], [place] [address] Post Discharge Appointments Primary Care Physician Name Of Family Doctor: [facility] - Dr. Rin [facility] Time of Appointment with PCP: Follow up as needed. Provider Appointment Comment: [address] [place] [address] Specialist Name of Specialist: [place] [facility] Phone Number for Specialist: Time of Appointment with Specialist: Return with your routine schedule Specialty Appointment Comment: [address], [place] [address] Contact Information Discharge Discharge Address: [address], [place], [place] [address] CPT Code CPT Code 33204 (1) Bipolar disorder Active/Remission status: currently active Current episode severity: severe Psychotic features: with psychotic features
[2018-12-16] MEDS: HALOPERIDOL 5 MG TAB PO SCH ×2 (09:55→21:09)
[2018-12-16] MEDS: NICOTINE 14 MG/24 HR PATCH TD SCH (09:55)
[2018-12-16] MEDS: FERROUS SULFATE 325 MG TAB PO SCH ×2 (09:55→21:10)
[2018-12-16] MEDS: PANTOprazole 40 MG TAB PO SCH ×2 (09:55→21:10)
[2018-12-16] MEDS: GABAPENTIN 600 MG TAB PO SCH ×3 (09:55→21:11)
[2018-12-16] MEDS: FOLIC ACID 1 MG TAB PO SCH (09:55)
[2018-12-16] MEDS: PATIENT'S OWN CONTROLLED MED PO SCH (09:56)
[2018-12-16] MEDS: METHADONE ORAL SOLN 2 MG/ML PO SCH (09:56)
[2018-12-16] MEDS: LORazepam 1 MG TAB PO PRN (13:39)
[2018-12-16] MEDS: MIRTAZAPINE SOLTAB 15 MG PO SCH (21:11)
[2018-12-16] MEDS: PRAZOSIN HCL 1 MG CAP PO SCH (21:11)
[2018-12-17] MEDS: PANTOprazole 40 MG TAB PO SCH (09:20)
[2018-12-17] MEDS: GABAPENTIN 600 MG TAB PO SCH (09:20)
[2018-12-17] MEDS: HALOPERIDOL 5 MG TAB PO SCH (09:20)
[2018-12-17] MEDS: METHADONE ORAL SOLN 2 MG/ML PO SCH (09:20)
[2018-12-17] MEDS: PATIENT'S OWN CONTROLLED MED PO SCH (09:22)
[2018-12-17] MEDS: FOLIC ACID 1 MG TAB PO SCH (09:22)
[2018-12-17] MEDS: NICOTINE 14 MG/24 HR PATCH TD SCH (09:22)
[2018-12-17] MEDS: FERROUS SULFATE 325 MG TAB PO SCH (09:22)
[2018-12-17] MEDS ORDERED: HALOPERIDOL DECANOATE INJ 50 MG/ML VIAL IM ONE ×2 (09:45)
--- NOTE | 2018-12-17 10:22 | Discharge Summary ---
Date of Service December 17, 2018 History of Present Illness Patient is known to us from previous hospitalizations, last on our unit in December 2018 after an intentional overdose on prazosin. She had been noncompliant with medications and presented with psychotic symptoms. She was initially restarted on aripiprazole, but requested to return to Haldol, and was discharged on Haldol Decanoate. She had also been on our unit in November 2017, had been using cannabis and meth, and was transferred to [place] for inpatient rehab. She presented to the ER last night (11/29/2018) with psychosis and a suicide attempt after staff at [facility] caught her trying to jump out of a second story window. She said she was hearing voices telling her to kill herself, telling her that she is a molester and a bad person, and had been off of her medications for an unknown amount of time. She reported visual hallucinations, confusion, fearfulness, lack of sleep, and decreased appetite. She did not feel safe outside of the hospital, and was agreeable to voluntary hospitalization. UDS was positive for methadone, amphetamine/methamphetamine, MDMA, and THC. She reported using meth recently but could not give details. Her UA was contaminated, > 30 epithelial cells, 1+ bacteria, 5-10 RBCs, > 30 WBCs, 2+ leukocyte esterase, 1+ ketones, and 3+ blood. Culture results show more than 3 types of organisms present, all moderate counts mixed probable skin cecilio. She was agitated and fearful in the ER, wanting her phone so she could call people and say goodbye. She said voices were telling her to fast for 3 days, that she is no good and should kill herself, and that she skinned her children. She was tearful and distressed, thinking she may have hurt her children. She repeatedly told ER staff "do not let them kill me." She was repeating the same questions over and over, was extremely paranoid, and said she believed she was going to be killed and "hung up by a meat hook." She received hydroxyzine 50, haloperidol 5 mg, lorazepam 2 mg, and benztropine 1 mg. She slept in the quiet room. Attempted to assess her multiple times this morning, but she is sleeping and resistant to participating in the interview process. She was able to open her eyes briefly and respond with a few words, but then closed her eyes tightly and did not respond further. [facility] contacted [facility] and clarified that she does not currently have a family caseworker. She has not yet signed a release for [facility], where she gets methadone, but they did confirm her methadone dose. Records were received from Dr. Pina and indicates she was last seen 11/02/2018. She endorsed anxiety, depression, anger outbursts, but denied psychosis. She was continued on Ambien 10 mg at bedtime as needed, mirtazapine 45 mg at bedtime, gabapentin 600 mg 3 times daily, benztropine 1 mg twice daily, hydroxyzine 50 mg twice daily, prazosin 2 mg at bedtime, and aripiprazole 10 mg at bedtime. In 09/2018, she reported worsening depression, as her boyfriend had gone back to snf due to drug use. She denied using drugs but was acting bizarre and agitated during her appointment. In 08/2018, she left the [facility] and was living on her own in an apartment, with hopes to move in with her mother. In 07/2018, she reported nightmares, disrupted sleep, and grogginess in the morning, while [facility] staff reported she was falling asleep while eating. In 07/2018, she reported weight gain and sedation on Haldol and was switched to aripiprazole. In 05/2018 she relapsed on heroin and went to rehab. Physical Exam Psychiatric Orientation: alert, oriented x 3 and cooperative Apperance: appropriately dressed and + disheveled (had recently awoken from sleep, not yet showered/dressed) Eye Contact: good eye contact Motor Behavior: steady gait and station and no abnormal motor movements Speech: normal rate/rhythm/volume of speech Affect: + constricted affect (fatigued, no overt dep/anx, timidly reactive, smiling appropriately) and mood congruent with affect Mood: no depressed mood and no anxious mood "I'm feeling pretty good, ready to go." Thought Process: goal directed thought process and clear/coherent thought process Thought Content: reality based without delusions; not paranoid, no persecution, no hopelessness and no worthlessness Suicidal Thoughts: denies suicidal thoughts, denies suicidal plan and denies suicidal intent Homicidal Thoughts: denies homicidal thoughts Hallucinations: no auditory hallucinations and no visual hallucinations Cognition: attention grossly intact and language grossly intact Estimated Intelligence: consistent with education level Insight: + fair insight (regarding recent events and commitment to discharge planning) Overall insight is limited due to chronic psychiatric condition and substance abuse Judgement: + fair judgement (regarding commitment to discharge planning and future oriented decisions) Overall judgement is limited due to chronic psychiatric condition and substance abuse Vital Signs (Past 24 Hours) Last Vital Signs Temp 36.7 C 12/16/18 07:09 Pulse 75 12/16/18 07:10 Resp 16 12/16/18 07:09 BP 81/61 L 12/16/18 07:10 Pulse Ox 95 11/30/18 01:39 Principal Diagnosis - Bipolar I disorder, with psychotic features - Methamphetamine abuse - Heroin abuse - Cannabis abuse - Hepatitis C Psychiatric Data 33-year-old female admitted voluntarily for inpatient psychiatric treatment on 11/30/18 due to psychosis and command auditory hallucinations telling her to kill herself by jumping out of a window. Prior to admission, the patient had removed the screen from a second story window at [facility] ([facility] Pt was brought to the ED with hallucinations, confusion, fearfulness, decreased sleep, and delusional beliefs - including that she needed to end her life for harming her children (whom she has not had contact with). Pt is well-known to our unit and has a history of bipolar disorder, type I and substance abuse. Her UDS on presentation to the ED was positive for methadone, amphetamine/methamphetamine, MDMA, and THC - reported recent use of meth. She had been taking Ambien for sleep, which was discontinued on admission due to substance abuse history. Early in her admission, she was very fearful, continuing to have delusional belief that she "skinned" and harmed her children. She verbalized auditory hallucinations of persecution, that she would be "hung up by a meat hook" and other gruesome actions if she did not complete certain actions (i.e. a 3-day fast). Pt was admitted on aripiprazole, which was titrated early in admission with eventual plan to convert to Abilify Maintena. She did not feel this medication was beneficial for her symptoms, and ultimately requested to return to haloperidol, with a request to begin an JUNIOR. Pt tolerated initiation of haloperidol which was titrated to a dose of 7.5mg TID prior to receiving the initial decanoate injection. Due to her substance use behavior, patient was removed from the [facility] and was no longer meeting with her family caseworker. She was agreeable to receiving additional outpatient resources, and even requested an outpatient commitment to ensure compliance. Given her history of noncompliance and frequent decompensation with substance use, this was deemed to be an appropriate action. A 304 hearing was held, and inpatient commitment was granted on 12/06/18. This was converted to an involuntary outpatient commitment at time of discharge back to [facility]. Pt was put back in touch with her previous family caseworker and is to have an intake at [facility] for therapy and medication management after discharge. During patient's admission, her QTc was found to be prolonged - but psychotic symptoms were not adequately managed with low-dose haloperidol. Concern on this admission was for interaction between her methadone and haloperidol. Serial EKGs were ordered, and recommendations were received from [facility] (patient's methadone clinic) to reduce her dose of methadone by 5mg every 4-5 days. QTc was monitored and oral haloperidol was titrated as appropriate while methadone dosage was reduced. At time of discharge, patient was receiving 102mg of methadone daily. Pt's psychotic symptoms improved and she returned to baseline on a dose of haloperidol 7.5mg TID - reporting resolution of delusional beliefs, suicidality, and auditory hallucinations. Pt was agreeable to returning to haloperidol decanoate, and received her first injection of 100mg on 12/15/18. After risks and benefits were reviewed, patient was agreeable to receiving her second loading injection on 12/17/18, as it was felt to be important she complete her injections prior to planned discharge. She received her second injection of 100mg on 12/17/18. Her next scheduled maintenance dose can be given in 4 weeks, on 01/14/19. It is recommended that the patient continue to have EKGs periodically to ensure no ongoing QTc prolongation - during admission, her last several QTc's were consistently in the mid-470's. Pt completed a safety plan during her admission, which was personally reviewed by this provider prior to discharge. Based on review of patient's case and their current presentation, risk of harm to self or others is no longer perceived to be acute. Long-term risk of harm to self or others remains high co mpared to the general population, but risk factors of substance abuse, poor insight/judgement, and limited outpatient supports due to burned bridges are not likely to be mitigated by further inpatient treatment. Management of symptoms on an outpatient basis seems the most appropriate and least restrictive setting. Pt seems appropriate for discharge with recommendation for consistent follow-up with outpatient psychiatric prescriber, therapist and family caseworker. Pt verbalized understanding of discharge plan reviewed and is agreeable with plan to be discharged to the [facility] today. Day of Discharge Assessment Patient's case was reviewed and discussed during treatment team. Staff reports the patient's condition continues to improve, and she has been participating in group and recreational therapies appropriately. Pt is verbalizing desire for discharge, and is to meet with her family caseworker this morning. Pt was seen today to assess readiness for discharge. She states she is doing well and had a good evening. Pt met with her family caseworker this morning and states she is interested in leaving this morning. Pt reviewed her plan for the next few days, which includes discharge back to [facility], and a plan to start her job on Thursday. Pt states she is planning to make several phone calls after we finish our discharge conversation. Pt states she has tolerated her initial injection of haloperidol decanoate, 100mg given 12/15/18. She denies EPS/TD and has not required prn benztropine. Reviewed again the risks and benefits of receiving her second loading injection of 100mg this morning - which she verbalizes she is agreeable with. Reviewed that patient will remain on the oral haloperidol, which can be tapered on an outpatient basis. She verbalizes awareness of aftercare appointments scheduled at [facility] and with her family caseworker, and states she is agreeable to attending them. Pt denies SI/HI, and states her auditory hallucinations have resolved. She denies ongoing paranoia or concerns about persecution. Pt is future oriented in conversation, reporting a plan to contact her new employer about returning to work on Thursday, after she "relaxes for a few days." Pt reports feeling ready for discharge at this time. She is able to verbalize a safety plan. Given patient's request to leave treatment, and the fact that risk of acute harm to self or others has been mitigated during her hospitalization, it seems appropriate that patient should continue her psychiatric treatment on an outpatient basis - as this is the least restrictive setting for ongoing management at this time. Pt verbalized understanding of plan and is hopeful to have a taxi take her to [facility] this morning. ROS: Constitutional: reports mild fatigue Cardiovascular: denied Respiratory: denied Gastrointestinal: denied Neurological: denied Psychiatric: denies symptoms other than stated above Total of at least 10 systems reviewed, pertinent positives as above and in HPI. Transition of Care Transition Of Care Record: was reviewed with the patient Advance Directives Advance Directives Information Provided: Yes Advance Directives: No Mental Health Advance Directive: No Advance Directives on File: No Living Will: No Power of Dishwasher Busser: No Advance Directives Reason:: Declines as Mental Health Visit. Risk Factors Assessment Presenting risk factors reviewed on discharge. Precipitating stressors mitigated by: admission for inpatient psychiatric observation and treatment, appropriate adjustments to medications to target symptoms, initiation of a long- acting injectable to prevent noncompliance and decompensation, attendance of therapeutic treatment groups, development of healthy and effective coping strategies, involvement of outpatient family caseworker, completion of a safety plan, discussion regarding substance abuse and effects on mental health diagnoses, and education on diagnoses. Pt has demonstrated improvement in condition with regard to resolution of auditory hallucinations and persecutory thoughts, improvement in overall mood, development of a more concrete housing plan, and initiation of an JUNIOR to prevent noncompliance and decompensation. Pt discharged on a 304 outpatient commitment to provide additional outpatient support and assist with appointment and medication compliance. At this time, patient is requesting discharge and is no longer considered to be at acute risk of harm to herself or others. Pt will be discharged with recommendation for ongoing outpatient psychiatric treatment. Pt is at increased risk of harm to self or others when compared to the general population and there are several risk factors which are not likely to be mitigated in an inpatient treatment setting. Due to her long history of psychiatric illness, limited insight/judgment, frequent use of illicit substances, and history of burning bridges with a number of outpatient supports - her overall prognosis is somewhat poor. Acute risk factors have been miti gated during this admission; however, there are a number of other long-term stressors and risk factors that are not likely amenable to ongoing inpatient psychiatric treatment. Male: No : Yes Health Problems: Yes Mental Health Diagnoses: Yes Substance Use Disorders: Yes Previous Attempt: Yes Family History of Suicide: Yes Previous Psychiatric Hospitalization: Yes Smoker: Yes Protective Factors Assessment Congregation Beliefs: No : No Responsible for Young Children: No (Lost custody of her children, has not seen them in months.) Employed: Yes ([employer]) Stable Relationships: No Good Rapport with Provider: No Tobacco Cessation at Discharge Tobacco Cessation Medication Prescribed at Discharge: Offered & Pt Refused Total Time Total Time Spent: Greater Than 30 Minutes Total Time Includes: Examination of the patient, Discharge Planning, Medication Reconciliation and Communication with other providers Discharge Data Consultations 11/30/18 01:01 ED Decision to Admit Stat Lab Results 11/29/18 11/29/18 11/29/18 19:00 19:00 19:00 WBC RBC Hgb Hct MCV MCH MCHC RDW Std Deviation RDW Coeff of Keo Plt Count MPV Immature Gran % (Auto) Neut % (Auto) Lymph % (Auto) [place] % (Auto) Eos % (Auto) Baso % (Auto) Immature Gran # (Auto) Neut # (Auto) Lymph # (Auto) [place] # (Auto) Eos # (Auto) Baso # (Auto) Sodium Potassium Chloride Carbon Dioxide Anion Gap BUN Creatinine Est Cr Clr Drug Dosing Est GFR ( Amer) Est GFR (Non-Af Amer) BUN/Creatinine Ratio Glucose Fasting Glucose Calcium Total Bilirubin AST ALT Alkaline Phosphatase Total Protein Albumin Globulin Albumin/Globulin Ratio Triglycerides Cholesterol LDL Cholesterol, Calc VLDL Cholesterol, Calc HDL Cholesterol Cholesterol/HDL Ratio TSH Urine Color Dark Yellow Urine Appearance Cloudy A Urine pH 5.5 Ur Specific Anderson 1.028 Urine Protein Negative Urine Glucose (UA) Negative Urine Ketones 1+ H Urine Blood 3+ H Urine Nitrite Negative Urine Bilirubin Negative Urine Urobilinogen Negative Ur Leukocyte Esterase 2+ H Urine WBC (Auto) >30 H Urine RBC (Auto) 5-10 H U Hyaline Cast (Auto) 0 U Epithel Cells (Auto) >30 H Urine Bacteria (Auto) 1+ H POC Ur Test Cancelled Salicylates Urine Opiates Screen Neg Ur Methadone, Qual Pos H U Methadone Metabolites Ur Methadone Confirm Acetaminophen Urine Barbiturates Neg Ur Phencyclidine (PCP) Neg U Amphetamines Confirm U Amphetamin/Meth Scrn Pos H U Methamphetamin Confrm MDMA (Ecstasy) Screen Pos H U MDMA (Ecstasy), Quant U Benzodiazepines Scrn Neg Ur Cocaine Metabolite Neg U Marijuana (THC) Screen Pos H U Marijuana THC Carboxy Ethyl Alcohol mg/dL 11/29/18 11/29/18 11/29/18 19:00 19:00 19:57 WBC 4.08 L RBC 4.57 Hgb 12.0 Hct 36.0 L MCV 78.8 L MCH 26.3 MCHC 33.3 RDW Std Deviation 43.6 RDW Coeff of Keo 15.1 H Plt Count 160 MPV 10.2 Immature Gran % (Auto) 0.0 Neut % (Auto) 63.1 Lymph % (Auto) 30.1 [place] % (Auto) 5.1 Eos % (Auto) 1.2 Baso % (Auto) 0.5 Immature Gran # (Auto) 0.00 Neut # (Auto) 2.57 Lymph # (Auto) 1.23 [place] # (Auto) 0.21 Eos # (Auto) 0.05 Baso # (Auto) 0.02 Sodium Potassium Chloride Carbon Dioxide Anion Gap BUN Creatinine Est Cr Clr Drug Dosing Est GFR ( Amer) Est GFR (Non-Af Amer) BUN/Creatinine Ratio Glucose Fasting Glucose Calcium Total Bilirubin AST ALT Alkaline Phosphatase Total Protein Albumin Globulin Albumin/Globulin Ratio Triglycerides Cholesterol LDL Cholesterol, Calc VLDL Cholesterol, Calc HDL Cholesterol Cholesterol/HDL Ratio TSH Urine Color Urine Appearance Urine pH Ur Specific Anderson Urine Protein Urine Glucose (UA) Urine Ketones Urine Blood Urine Nitrite Urine Bilirubin Urine Urobilinogen Ur Leukocyte Esterase Urine WBC (Auto) Urine RBC (Auto) U Hyaline Cast (Auto) U Epithel Cells (Auto) Urine Bacteria (Auto) POC Ur Test Salicylates Urine Opiates Screen Ur Methadone, Qual U Methadone Metabolites >82188 A Ur Methadone Confirm 99012 A Acetaminophen Urine Barbiturates Ur Phencyclidine (PCP) U Amphetamines Confirm 7710 A U Amphetamin/Meth Scrn U Methamphetamin Confrm >73896 A MDMA (Ecstasy) Screen U MDMA (Ecstasy), Quant REPORT U Benzodiazepines Scrn Ur Cocaine Metabolite U Marijuana (THC) Screen U Marijuana THC Carboxy 120 A Ethyl Alcohol mg/dL 11/29/18 11/29/18 11/29/18 19:57 19:57 19:57 WBC RBC Hgb Hct MCV MCH MCHC RDW Std Deviation RDW Coeff of Keo Plt Count MPV Immature Gran % (Auto) Neut % (Auto) Lymph % (Auto) [place] % (Auto) Eos % (Auto) Baso % (Auto) Immature Gran # (Auto) Neut # (Auto) Lymph # (Auto) [place] # (Auto) Eos # (Auto) Baso # (Auto) Sodium 138 Potassium 3.6 Chloride 103 Carbon Dioxide 26 Anion Gap 9.0 BUN 11 Creatinine 0.90 Est Cr Clr Drug Dosing 108.8 Est GFR ( Amer) 96.7 Est GFR (Non-Af Amer) 83.4 BUN/Creatinine Ratio 12.4 Glucose 87 Fasting Glucose Calcium 8.9 Total Bilirubin 0.6 AST 14 L ALT 16 Alkaline Phosphatase 74 Total Protein 7.4 Albumin 3.9 Globulin 3.5 Albumin/Globulin Ratio 1.1 Triglycerides Cholesterol LDL Cholesterol, Calc VLDL Cholesterol, Calc HDL Cholesterol Cholesterol/HDL Ratio TSH 1.960 Urine Color Urine Appearance Urine pH Ur Specific Anderson Urine Protein Urine Glucose (UA) Urine Ketones Urine Blood Urine Nitrite Urine Bilirubin Urine Urobilinogen Ur Leukocyte Esterase Urine WBC (Auto) Urine RBC (Auto) U Hyaline Cast (Auto) U Epithel Cells (Auto) Urine Bacteria (Auto) POC Ur Test Salicylates 3.5 Urine Opiates Screen Ur Methadone, Qual U Methadone Metabolites Ur Methadone Confirm Acetaminophen < 2 L Urine Barbiturates Ur Phencyclidine (PCP) U Amphetamines Confirm U Amphetamin/Meth Scrn U Methamphetamin Confrm MDMA (Ecstasy) Screen U MDMA (Ecstasy), Quant U Benzodiazepines Scrn Ur Cocaine Metabolite U Marijuana (THC) Screen U Marijuana THC Carboxy Ethyl Alcohol mg/dL < 3.0 12/01/18 08:07 WBC RBC Hgb Hct MCV MCH MCHC RDW Std Deviation RDW Coeff of Keo Plt Count MPV Immature Gran % (Auto) Neut % (Auto) Lymph % (Auto) [place] % (Auto) Eos % (Auto) Baso % (Auto) Immature Gran # (Auto) Neut # (Auto) Lymph # (Auto) [place] # (Auto) Eos # (Auto) Baso # (Auto) Sodium Potassium Chloride Carbon Dioxide Anion Gap BUN Creatinine Est Cr Clr Drug Dosing Est GFR ( Amer) Est GFR (Non-Af Amer) BUN/Creatinine Ratio Glucose Fasting Glucose 59 L Calcium Total Bilirubin AST ALT Alkaline Phosphatase Total Protein Albumin Globulin Albumin/Globulin Ratio Triglycerides 110 Cholesterol 182 LDL Cholesterol, Calc 121 VLDL Cholesterol, Calc 22 HDL Cholesterol 39 Cholesterol/HDL Ratio 5 TSH Urine Color Urine Appearance Urine pH Ur Specific Anderson Urine Protein Urine Glucose (UA) Urine Ketones Urine Blood Urine Nitrite Urine Bilirubin Urine Urobilinogen Ur Leukocyte Esterase Urine WBC (Auto) Urine RBC (Auto) U Hyaline Cast (Auto) U Epithel Cells (Auto) Urine Bacteria (Auto) POC Ur Test Salicylates Urine Opiates Screen Ur Methadone, Qual U Methadone Metabolites Ur Methadone Confirm Acetaminophen Urine Barbiturates Ur Phencyclidine (PCP) U Amphetamines Confirm U Amphetamin/Meth Scrn U Methamphetamin Confrm MDMA (Ecstasy) Screen U MDMA (Ecstasy), Quant U Benzodiazepines Scrn Ur Cocaine Metabolite U Marijuana (THC) Screen U Marijuana THC Carboxy Ethyl Alcohol mg/dL Hospital Course (1) Suicidal thoughts: 11/30 -patient endorsed suicidal thoughts in the ER, and had attempted to jump out of a second story window prior to presentation. Suicidality appears to be driven by psychosis at this point, with command auditory hallucinations telling her to end her life. -Medically necessary private room due to severity of symptoms and unpredictable, impulsive behavior. -Suicide checks for safety. 12/03 - Pt continuing to report she feels she is "not allowed to be alive" - intense guilt and remorse leading to ongoing SI. 12/08 -suicidality continues, but is lessening from admission. 12/15 - Pt denies suicidality, no longer feeling paranoid (2) Bipolar disorder: 11/30 -history of bipolar disorder with frequent psychotic episodes, exacerbated by ongoing substance abuse (cannabis, methamphetamine, possibly others). -Current medications confirmed with outpatient records: Last discharged from our unit on Haldol Decanoate, but switched to aripiprazole by her outpatient psychiatrist in 07/2018 due to reports of sedation and weight gain. Will increase aripiprazole to 15 mg daily, and consider further increase to 30 mg daily if needed. If this is effective, she would benefit from the long-acting injectable Abilify Maintena. If ineffective, could consider short-term use of haloperidol which has been beneficial in the past. -Order fasting lipid profile and glucose for monitoring on an atypical antipsychotic. -Get collateral information from her mother or her outpatient clinicians. -Records reviewed from outpatient psychiatrist, Dr. Pina. She would benefit from a therapist and family caseworker. Consider the need for a 304 involuntary outpatient commitment. -Involve her in groups and therapy when she is able to tolerate them. 12/01 -increase aripiprazole to 30 mg daily for tomorrow. If effective, transition to Maintena. Continue Haldol and Ativan as needed in the meantime. -Fasting glucose 59, cholesterol levels within normal. -Get collateral information as the patient is a very poor historian. -She is willing for re-referral for a blended case management. -File for 304 involuntary commitment, to transition to an involuntary outpatient commitment at the time of discharge. 12/02 maintained treatment plan unchanged 12/03 - Pt continues to verbalize desire to return to haldol decanoate injections - as she does not feel aripiprazole is beneficial - Will order haloperidol 5mg TID scheduled, as receiving 5-10mg daily as available prns; reducing aripiprazole to 15mg tomorrow morning and continuing to taper - If tolerating and improvement is noticeable - can receive decanoate injection on unit - PRN doses of benztropine remain available for any EPS/TD - 304 hearing scheduled fro 12/06 - with plan to eventually convert to 304 outpatient commitment 12/04 -appears sedated with restart Haldol, speed up Abilify taper to 5 mg BID, reviewed med list and receiving BID Ativan 2 mg prn and on methadone. Will begin benzo taper to 1 mg and monitor. Hold it and Haldol for excessive sedation discussed with staff. 12/05 --resume Haldol at 5 mg BID, continue decrease frequency of Ativan dosing. Stop Abilify given concerns about QTc (491 last evening), and medical necessity of Haldol. Repeat EKG this pm. Encourage fluids. 12/06 -Repeat EKG yesterday afternoon with continued prolonged QTC (504). Aripiprazole was stopped yesterday, will recheck QTC today and consider cardiology consult. Consider decreasing methadone dose if QTC does not normalize with elimination of the atypical antipsychotic. -Current Haldol dosing insufficient to control symptoms, but will hold off on titration for now given prolonged QTC and risk of arrhythmia. -304 hearing held today. Re-refer for a blended case management. We will need a family meeting with her mother when she is able to tolerate it. 12/07 - Continue current dosing of haloperidol with ongoing EKGs to monitor for QTc. Last evening's QTc was reduced to 484 - Recommendations received from [facility] to reduce methadone dose to 107mg for 4-5 days to ideally allow for QTc normalization - Will need to continue to assess aftercare/discharge planning 7/10 -QTC today 477. Methadone reduced as above. Continue haloperidol 5 mg twice daily for today, but consider dose increase tomorrow. 12/09 - PRN haloperidol 5mg was provided to patient yesterday afternoon - subsequently, dose was increased to 5mg TID scheduled - Repeat QTc today is 479. Will continue daily EKGs to monitor for QTc p rolongation limiting more rapid titration of haloperidol - Consider need to further taper methadone - as recommended by [facility] - could consider reducing dose to 102mg after a few days if QTc remains prolonged - Will need to confirm current outpatient psychiatrist is able to manage patient on 304 outpatient commitment or refer accordingly to another provider 12/10 - Continue haloperidol 5mg TID, further titration as appropriate - Continue methadone 107mg tomorrow morning, recommend reducing to 102mg thereafter - QTc of 488 this morning, continue to monitor daily EKGs - As sedation has improved, will order lorazepam TID prn, given level of anxiety and concerns with more rapid titration of haloperidol to target symptoms 12/11 -Increase Haldol to 7.5 mg p.o. 3 times daily -Has Cogentin as needed available 12/12 Tolerating increased Haldol well so far. 12/13 - Continue Haldol at 7.5mg TID, as patient feels it has been an effective dose for her auditory hallucinations - If dosage remains effective, consider timing of conversion to Haldol Dec - QTc today was 475; continue methadone at 102mg daily - Reviewed that patient will not receive lorazepam on discharge, and as anxiety is improving suggested taper. Pt was agreeable to tapering to 1mg BID prn. 12/14 - Continue Haldol 7.5mg TID - continues to deny auditory hallucinations at this dosage - Continue lorazepam taper - Will obtain additional EKG tomorrow to ensure QTc prolongation is resolving 12/15 - Pt received 100mg of haloperidol decanoate today; if no side effects, will receive second injection on 12/17/18 prior to discharge - risks and potential concerns with dosing a day early were explained and accepted by patient. - Haloperidol reduced to 7.5mg BID today after receiving injection, will continue taper - Organization of thought continues to improve - QTc today of 476; which has been rather consistent over the past 3 EKGs - Pt taken off [facility] as paranoia/persecutory thoughts have resolved and she now seems more appropriate for a roommate - Meeting with family caseworker Thursday to solidify aftercare and discharge plan 12/16 -Tolerating Haldol Decanoate well, will order second loading dose of 300 mg for tomorrow. Her next injection will be due 4 weeks later, on 01/14/2019. (3) Methamphetamine abuse: 11/30 -UDS positive, likely contributing to insomnia, mood instability, and psychosis. -Recovery protocol. -Coordinate with [facility] and outpatient psychiatrist. -We will review recommendations for inpatient rehab once less psychotic. -Avoid prescribing controlled substances given the severity of her addictions issues. We will discontinue zolpidem. (4) Heroin abuse: 11/30 -methadone dose confirmed with [facility]. Will need to inform them of her methamphetamine and cannabis use, and review plan for ongoing MAT prior to discharge. 12/07 - Communication with [facility] to discuss concerns related to QTC prolongation and methadone dose contributing to these concerns - Recommendation from Dr. Morataya is to slowly decrease methadone dose, starting with reduction by 5mg (107mg/day) for 4-5 days then re-evaluate - Will order for patient to receive 107mg dose starting tomorrow morning 12/11 -We will reduce methadone to 102 mg tomorrow as planned -We will continue EKGs every 3 days following stable QTc interval today 12/12 Methadone decreased this morning. Watch for signs of withdrawal 12/16 -Tolerating decreased dose of methadone well. Will need follow-up at the methadone clinic after discharge. Send records to coordinate care, and staff have already contacted them regarding her illicit substance abuse. (5) Cannabis abuse: Likely exacerbating psychotic symptoms. Once patient is less psychotic, will provide education about the risks of psychoactive substance abuse. (6) Hepatitis C: Avoid hepatotoxic agents Mental Health & Subst Abuse Tx Psychiatrist Name of Psychiatrist: [facility] - Intake with [facility] (will schedule after intake) Psychiatrist's Date of Appointment with Psychiatrist: 12/24/18 Time of Appointment with Psychiatrist: 1:00 p.m. Psychiatric Appointment Comment: [address] [place] [address] Psychiatrist Release of Information: Obtained, Reviewed and Signed Therapist Name of Therapist: [facility] - Intake with [facility] (ask to see Opal moving forward after the intake) Therapist's Date of Therapist Appointment: 12/24/18 Time of Therapist Appointment: 1:00 p.m. Therapy Appointment Comment: [address] [place] [address] Therapist Release of Information: Obtained, Reviewed and Signed Archival Records Clerk Name of Archival Records Clerk: ANITA Gomez Phone Number for Archival Records Clerk: [phone] Date of Appointment with Archival Records Clerk: 12/21/18 Time of Appointment with Archival Records Clerk: 12:00 p.m. Case Management Appointment Comment: Will see you at [facility] Archival Records Clerk Release of Information: Obtained, Reviewed and Signed Post Discharge Appointments Primary Care Physician Name Of Family Doctor: [facility] - Dr. Rin Blue [facility] Time of Appointment with PCP: Follow up as needed. Provider Appointment Comment: [address] [place] [address] Primary Care Release of Information: Obtained, Reviewed and Signed Specialist Name of Specialist: [facility] Phone Number for Specialist: Time of Appointment with Specialist: Return with your routine schedule Specialty Appointment Comment: [address], [place] [address] Specialist Release of Information: Obtained, Reviewed and Signed Smoking Cessation Counseling Tobacco Cessation Medication Prescribed at Discharge: Offered & Pt Refused Contact Information Discharge Discharge Address: [facility] [place] [address] Discharge Plan Discharge Items Patient Disposition: Home - Self-Care Reason For Visit: BIPOLAR D/O WITH PSYCHOSIS Discharge Diagnosis: Bipolar disorder with psychotic features; substance abuse Condition: Fair Discharge Goals: Decrease discomfort, Improve disease control, Improve function, Increase independence, Learn about illness and Therapeutic intervention Activity: Resume your previous activity Non-emergency contact: Primary Care Provider, Psychiatrist, Therapist and St[employer]er Mill Operator Call non-emergency contact if: you have any medication questions and your symptoms worsen Follow-up/Referrals: PCP,NO [Primary Care Provider] - Diet: Regular Addtl Provider Instructions: SPECIAL CARE INSTRUCTIONS: 1. Follow through with your scheduled aftercare appointments. If unable to keep an appointment, please call to reschedule. 2. Take your medication only as prescribed. Medication should not be changed or stopped without the approval of your doctor. In the event of worsening symptoms or concerns about side effects, contact your doctor immediately. 3. Utilize new healthy coping skills, anger management skills, and stress management skills learned during your hospitalization. Journal feelings and process them with a support person. Identify stressors or situations that may result in relapse, deterioration or inappropriate behaviors and develop a plan to deal with those issues. 4. If your coping skills are ineffective and you are in crisis, contact your outpatient providers for direction. If unable to reach your providers, please call the CAN HELP LINE AT or go to the closest Emergency Room. 5. Avoid alcohol and un-prescribed drugs. 6. You have been provided with the Mental Health Advance Directives Pamphlet for your review. AFTERCARE APPOINTMENTS: * Please call your insurance company prior to your scheduled appointment to confirm your aftercare providers are covered. Take your insurance information to your appointments. WHO TO CALL AND WHEN: Medical Emergencies: For questions or emergencies related to your hospital stay, please contact the Inpatient Behavioral Health Unit at [phone]. A office clinician is on-call 22/12 for the Behavioral Health Unit for emergencies At any time you feel your situation is an emergency, you may also call 911 immediately. Your Doctors Instructions noted above were prepared by provider Jacqueline Carter PA-C. Medications: - Haloperidol Decanoate was started during your admission - you received the first 100mg IM injection on 12/15/18, the second injection of 100mg IM was given on 12/17/18. - You will be due for your first maintenance injection in 4 weeks, on 01/14/19. - You will continue oral haloperidol 7.5mg BID on discharge. Work with your psychiatric prescriber to reduce your dose of oral haloperidol over the next 1-2 months as tolerated - Benztropine 1mg was continued, and can be used up to three times daily as needed for any restlessness, muscle stiffness, or other side effects - please reach out to your psychiatric prescriber if you are regularly requiring this medication for these concerns - Please call the Behavioral Health Unit with any questions about the above instructions Prescriptions: New benztropine 1 mg tablet 1 mg PO TID PRN (Reason: restlessness/muscle stiffness) 30 Days RF: 0 methadone 10 mg/5 mL Solution 102 mg PO DAILY 30 Days RF: 0 haloperidol 5 mg Tablet 7.5 mg PO BID 30 Days Qty: 90 RF: 0 Continued metoclopramide HCl 5 mg Tablet 5 mg PO ACHS Qty: 0 RF: 0 albuterol sulfate 90 mcg/actuation Hfa Aerosol Inhaler 2 puff INHALATION QID PRN (Reason: asthma) Qty: 0 RF: 0 pantoprazole [address] For Susp In Packet 40 mg PO BID Qty: 0 RF: 0 milk thistle 500 mg Capsule 500 mg PO DAILY Qty: 0 RF: 0 ondansetron HCl [Zofran] 8 mg Tablet 8 mg PO TID PRN (Reason: nausea) Qty: 0 RF: 0 ferrous sulfate 325 mg (65 mg iron) Tablet 325 mg PO BID Qty: 0 RF: 0 ipratropium bromide 0.02 % Solution 1.25 ml INHALATION Q6H PRN (Reason: asthma) Qty: 0 RF: 0 folic acid 1 mg Tablet 1 mg PO DAILY Qty: 0 RF: 0 gabapentin 600 mg Tablet 600 mg PO TID RF: 0 mirtazapine 45 mg Tablet 45 mg PO HS RF: 0 hydroxyzine HCl 25 mg Tablet 50 mg PO BID RF: 0 prazosin 2 mg Capsule 2 mg PO HS RF: 0 Discontinued medroxyprogesterone 10 mg Tablet 10 mg PO DAILY RF: 0 benztropine 1 mg Tablet 1 mg PO BID RF: 0 methadone 40 mg Tablet,Soluble 112 mg PO DAILY RF: 0 zolpidem [Ambien] 10 mg Tablet 10 mg PO HS PRN (Reason: Insomnia) RF: 0 aripiprazole 10 mg Tablet 10 mg PO HS RF: 0 Stand-Alone Forms: [facility] Discharge Orders: Discharge Order (Routine); Ordered 12/17/18 Ordered By: Jacqueline Carter Admission Data Admit Date/Time: 11/30/18 00:43 Attending Provider: Michell Burrell Admit Provider: López Wilkins I Primary Care Provider: PCP,NO Other Providers: López Wilkins I Service: Psychiatry Other Interventions: Discharge Summary Assessment (RN) Last Done: 12/17/18 10:33 PSY Interdisciplinary Discharge Planning Last Done: 12/17/18 09:28 Pending Studies at Discharge: No DC Date/Time DO NOT enter until pt leaves facility: 12/17/18 10:51
[2018-12-17] MEDS ORDERED: DESTROY THIS MEDICATION ONE (10:24)
== END 2018-12-17 10:51 | disposition home or self-care (01) | DRG 885 ==
LOC: ED 18:35 → 3S 11-30 00:43